=== PATIENT | male | born 1960 | race Caucasian/White ===

== ENCOUNTER 2018-05-05 08:43 | Outpatient (CLI) | payer MEDICARE, MEDICAID, SELFPAY ==
[2018-05-05 08:44] VITALS: BP 111/85; PULSE 88; RESP 18; TEMP 37.2; O2SAT 96
[2018-05-05] MEDS: methylPREDNISolone ACETATE 80 MG/ML VIAL IJ (09:37)
[2018-05-05] MEDS: Omnipaque 240 MG/ML 50 ML BTL IJ (09:38)
[2018-05-05] MEDS: Bupivacaine 0.5% Pres-Free 30 ML VIAL IJ (09:39)
--- NOTE | 2018-05-05 09:40 | DI.RAD_ITS ---
SYMPTOM/DIAGNOSIS: SACROILIAC JOINT DYSFUNCTION C-ARM: Fluoroscopy Time: 66.9 sec, 17.02 mGy Fluoroscopy was provided for guidance with pain clinic injections. Hard copy images show needle placement over the lower left SI joint and over the lower lumbar spine. Please see procedure note for details.
[2018-05-05 09:42] VITALS: BP 108/81; PULSE 78; RESP 18; O2SAT 94
--- NOTE | 2018-05-05 09:47 | PDOC.PAIN ---
Pain Clinic Procedure Note Current Active Problems Problem Status Onset Spondylosis of lumbar region without myelopathy or radiculopathy Chronic Post laminectomy syndrome Chronic Sacroiliac dysfunction Chronic INTRA-ARTICULAR FACET JOINT INJECTION and INTRA-ARTICULAR SI JOINT INJECTION BRANDON SANCHEZ has been referred [facility] the [facility] for intra-articular lumbar facet joint injection. COMMENTS: Good relief from previous injections for more than 6 months Patient was interviewed and the medical record reviewed. There were no medical, pharmacologic, radiographic or other structural contraindications to attempting fluoroscopically guided intra-articular lumbar facet joint injection. Risks and expected side effects as well as potential benefit of the procedure were reviewed and voiced concerns addressed. The printed consent form was signed and witnessed. Standard time-out procedure was performed. Patient was placed in the prone position on the fluoroscopy table and automated blood pressure cuff and pulse oximeter applied. The skin entry point for approaching {bilateral} facet joints at L3-4 was identified under the most advantageous fluoroscopic view and marked. Following thorough Chlorhexadine preparation of the skin and draping and 1% lidocaine infiltration of the skin entry point and subcutaneous tissues, a 22 gauge spinal needle was placed under fluoroscopic guidance into { bilateral L3-4} facet joint. Intra-articular placement was confirmed by a clear arthrogram resulting from the injection of 0.25ml Omnipaque 240. .5ml 1% bupivacaine and 20mg Depomedrol were injected intra-articularily with an initial reproduction of a significant component of the usual pain. The skin entry point for approaching { left/ } SI joints was identified under the most advantageous fluoroscopic view and marked. Following thorough Chlorhexadine preparation of the skin and draping and 1% lidocaine infiltration of the skin entry point and subcutaneous tissues, a 22 gauge spinal needle was placed under fluoroscopic guidance into { left/ } SI joints was identified under the most advantageous fluoroscopic view and marked. Following thorough Chlorhexadine preparation of the skin and draping and 1% lidocaine infiltration of the skin entry point and subcutaneous tissues, a 22 gauge spinal needle was placed under fluoroscopic guidance into { /left/ } SI joint. Intra-articular placement was confirmed by a clear arthrogram resulting from the injection of 0.25ml Omnipaque 240, 1ml 0.5% bupivacaine, and half ml (40mg) of 80mg concentration Depomedrol were injected intra-articularily with an initial reproduction of a significant component of the usual pain. Vital signs were stable throughout the procedure and were as recorded in the docflowsheet by the nursing staff. If given, dosages of intravenous drugs for anxiolysis and analgesia were documented in MAR. Follow up plans and appointments were discussed. Post procedure instruction was given as documented in nursing documentation and having met discharge criteria,was [facility] from the [facility]. COMMENTS:f/u prn CC: Ke Mcconnell
--- NOTE | 2018-05-05 09:52 | PDOC.PAIN_ITS ---
Pain Clinic Procedure Note Current Active Problems Problem Status Onset Spondylosis of lumbar region without myelopathy or radiculopathy Chronic Post laminectomy syndrome Chronic Sacroiliac dysfunction Chronic INTRA-ARTICULAR FACET JOINT INJECTION and INTRA-ARTICULAR SI JOINT INJECTION BRANDON SANCEHZ has been referred to the [facility] for intra- articular lumbar facet joint injection. COMMENTS: Good relief from previous injections for more than 6 months Patient was interviewed and the medical record reviewed. There were no medical , pharmacologic, radiographic or other structural contraindications to attempting fluoroscopically guided intra-articular lumbar facet joint injection. Risks and expected side effects as well as potential benefit of the procedure were reviewed and voiced concerns addressed. The printed consent form was signed and witnessed. Standard time-out procedure was performed. Patient was placed in the prone position on the fluoroscopy table and automated blood pressure cuff and pulse oximeter applied. The skin entry point for approaching {bilateral} facet joints at L3-4 was identified under the most advantageous fluoroscopic view and marked. Following thorough Chlorhexadine preparation of the skin and draping and 1% lidocaine infiltration of the skin entry point and subcutaneous tissues, a 22 gauge spinal needle was placed under fluoroscopic guidance into { bilateral L3-4} facet joint. Intra-articular placement was confirmed by a clear arthrogram resulting from the injection of 0.25ml Omnipaque 240. .5ml 1% bupivacaine and 20mg Depomedrol were injected intra-articularily with an initial reproduction of a significant component of the usual pain. The skin entry point for approaching { left/ } SI joints was identified under the most advantageous fluoroscopic view and marked. Following thorough Chlorhexadine preparation of the skin and draping and 1% lidocaine infiltration of the skin entry point and subcutaneous tissues, a 22 gauge spinal needle was placed under fluoroscopic guidance into { left/ } SI joints was identified under the most advantageous fluoroscopic view and marked. Following thorough Chlorhexadine preparation of the skin and draping and 1% lidocaine infiltration of the skin entry point and subcutaneous tissues, a 22 gauge spinal needle was placed under fluoroscopic guidance into { /left/ } SI joint. Intra-articular placement was confirmed by a clear arthrogram resulting from the injection of 0.25ml Omnipaque 240, 1ml 0.5% bupivacaine, and half ml (40mg) of 80mg concentration Depomedrol were injected intra- articularily with an initial reproduction of a significant component of the usual pain. Vital signs were stable throughout the procedure and were as recorded in the docflowsheet by the nursing staff. If given, dosages of intravenous drugs for anxiolysis and analgesia were documented in MAR. Follow up plans and appointments were discussed. Post procedure instruction was given as documented in nursing documentation and having met discharge criteria,was discharged from the [facility]. COMMENTS:f/u prn CC: Ke Mcconnell
== END 2018-05-05 09:03 ==
PROVIDERS: PCP Family Medicine; Visit Provider Anesthesiology Pain Medicine
DX: M47.816 Spondylosis without myelopathy or radiculopathy, lumbar region (principal); M53.3 Sacrococcygeal disorders, not elsewhere classified; M96.1 Postlaminectomy syndrome, not elsewhere classified; G89.29 Other chronic pain
CPT/HCPCS: 27096; 64493; 72200; J1040; Q9967

== ENCOUNTER 2018-05-10 10:12 | Emergency (ER) | payer MEDICARE, MEDICAID, SELFPAY ==
[2018-05-10] VITALS (25 sets, daily range): BP systolic 108–120; BP diastolic 76–85; PULSE 82–122; RESP 15–25; TEMP 36.5; O2SAT 90–95
[2018-05-10 10:24] LABS: Bilirubin Negative (Negative); Blood Moderate (Negative); Clarity Clear; Glucose Negative (Negative); Ketones Negative (Negative); Leukocyte Esterase Negative (Negative); Nitrite Negative (Negative); Specific Gravity >= 1.030 (1.005-1.025); Urobilinogen 0.2 EU/dL (Up TO 0.2); pH 6.5 (5-8)
--- NOTE | 2018-05-10 10:24 | W.ED.GENAD ---
Discharge Plan Disposition Patient Disposition: HOME Condition: Stable Discharge Details Chief Complaint: Urinary Clinical Impression: Hematuria, Dehydration Primary Care Provider: Ke Mcconnell ED Provider: Roxana Lowe Home Meds and New Rx's Prescriptions: Continue quetiapine [Seroquel] 400 mg tablet 400 mg PO BID RF: 0 gabapentin 300 mg capsule 300 mg PO TID RF: 0 polyethylene glycol 3350 [Miralax] 527 GM powder 1 cap PO PRN RF: 0 ibuprofen 200 MG tablet 200 - 400 tab PO BID PRN RF: 0 metoprolol tartrate 25 MG tablet 25 mg PO BID Qty: 180 RF: 3 Discharge Instructions Instructions: Dehydration (ED), Hematuria (ED) Additional Instructions: Please return immediately to the emergency department if you develop any new or worsening symptoms or if he become otherwise concerned. It is extremely important that you call Dr. Espinoza of urology tomorrow to schedule an appointment to be seen in follow-up this week. It is also extremely important that you make an appointment to be seen in follow-up by your primary care doctor. Please call [phone] if you have any difficulty scheduling these appointments. Referrals: Willie Espinoza MD [ [facility] STAFF PHYSICIAN] - Ke Mcconnell [Primary Care Provider] - Discharge Data Discharge Date/Time-TO BE ENTERED AT DEPARTURE: 05/10/18 13:26 Medical Decision Making Bernardo Sales is a 58 y/o man with history of alcoholism in the past now sober, history of rectal cancer in the past now in remission, chronic back pain, bipolar disorder who presented to the emergency department with hematuria that began this morning, also found to be tachycardic in triage. On exam he is nontoxic appearing and appears in no discomfort. He was tachycardic but had an otherwise normal cardiopulmonary exam without lower extremity edema. His lungs are clear. His genital exam is normal. On the monitor patient's tachycardia oscillates between 100-120. He does appear somewhat anxious. Unclear etiology of tachycardia/hematuria at this time, concern for anemia, metabolic/electrolyte derangement, dehydration, malignancy, infection. At this time exam/history not consistent with sepsis, PE, ACS, massive hemorrhage. Plan for EKG, screening labs, IV fluid hydration, telemetry. Will monitor and reassess. Pt reassessed, tachycardia resolved, NSR on monitor. Pt without complaint. UA shows hematuria without infection. Post-void residual shows 10cc, exam/hx not c/w urinary retention. I discussed Pt presentation and results with Dr. Espinoza of urology, who recommends no further intervention at this time, requests Pt f/u with his office tomorrow and he will see Pt in f/u. Lengthy discussion with Pt re: RTED precautions and importance of outpt f/u. He is amenable to the plan. Medical Records Medical records reviewed: Yes I reviewed the patient's medical records. Lab Data Lab results reviewed: Yes I reviewed the patient's lab results. Laboratory Tests Range/Units 05/10/18 05/10/18 05/10/18 10:18 11:00 11:00 WBC (4.4-10.8) k/cumm 6.52 RBC (4.50-6.00) m/cumm 4.23 L Hgb (13.5-17.5) g/dL 14.2 Hct (40.0-50.0) % 41.6 MCV (80-95) fL 98.3 H MCH (27.0-33.0) pg 33.6 H MCHC (32.0-36.0) g/dL 34.1 RDW (11.8-14.1) % 13.5 Plt Count (130-400) x1000/uL 199 MPV (8.0-11.0) fL 9.7 Immature Gran % 0.9 Neutrophils % 64.7 Lymphocytes % 23.9 Monocytes % 8.9 Eosinophils % 1.1 Basophils % 0.5 Absolute Neutrophils (1.2-6.7) k/cumm 4.22 Absolute Lymphocytes (1.2-3.4) k/cumm 1.56 Absolute Monocytes (0.11-0.7) k/cumm 0.58 Absolute Eosinophils (0.0-0.7) k/cumm 0.07 Absolute Basophils (0.0-0.2) k/cumm 0.03 PT (9.3-10.8) sec INR (1.0-3.5) Sodium (136-145) mmol/L 137 Potassium (3.5-5.1) mmol/L 3.6 Chloride (98-107) mmol/L 101 Carbon Dioxide (21.0-32.0) mmol/L 25.4 Anion Gap (3-11) mmol/L 10.6 BUN (7-18) mg/dL 13 Creatinine (0.70-1.30) mg/dL 0.71 Estimated GFR/1.73 m2 (mL/min/1.73m2) >= 60.00 Glucose (70-100) mg/dL 125 H Lactate (0.6-1.4) mmol/L Calcium (8.5-10.1) mg/dL 9.1 Total Bilirubin (0.2-1.0) mg/dL 0.3 AST (15-37) U/L 16 ALT (12-78) U/L 25 Alkaline Phosphatase (46-116) U/L 77 Total Protein (6.4-8.2) g/dL 7.7 Albumin (3.4-5.0) g/dL 3.8 Carcinoembryonic Ag ng/ml TSH (0.358-3.74) uIU/mL 2.56 Urine Color (Yellow) Yellow Urine Clarity Clear Urine pH (5-8) 6.5 Ur Specific [place] (1.005-1.025) >= 1.030 H Urine Protein (Negative) mg/dL Negative Urine Ketones (Negative) mg/dL Negative Urine Blood (Negative) Moderate H Urine Nitrite (Negative) Negative Urine Bilirubin (Negative) Negative Urine Urobilinogen (Up TO 0.2) EU/dL 0.2 Ur Leukocyte Esterase (Negative) Negative Urine RBC (0-2) 20-50 H Urine WBC (0-5) HPF 0-2 Ur Epithelial Cells (Negative) HPF Few Urine Crystals (Negative) HPF Negative Urine Bacteria (Negative) HPF Rare Urine Casts (Negative) LPF Negative Urine Mucus (Negative) Moderate Urine Other (Negative) Few spermatozoa Ur Culture Indicated? No Urine Glucose (Negative) mg/dL Negative Range/Units 05/10/18 05/10/18 05/10/18 11:00 11:00 11:40 WBC (4.4-10.8) k/cumm RBC (4.50-6.00) m/cumm Hgb (13.5-17.5) g/dL Hct (40.0-50.0) % MCV (80-95) fL MCH (27.0-33.0) pg MCHC (32.0-36.0) g/dL RDW (11.8-14.1) % Plt Count (130-400) x1000/uL MPV (8.0-11.0) fL Immature Gran % Neutrophils % Lymphocytes % Monocytes % Eosinophils % Basophils % Absolute Neutrophils (1.2-6.7) k/cumm Absolute Lymphocytes (1.2-3.4) k/cumm Absolute Monocytes (0.11-0.7) k/cumm Absolute Eosinophils (0.0-0.7) k/cumm Absolute Basophils (0.0-0.2) k/cumm PT (9.3-10.8) sec 9.9 INR (1.0-3.5) 1.0 Sodium (136-145) mmol/L Potassium (3.5-5.1) mmol/L Chloride (98-107) mmol/L Carbon Dioxide (21.0-32.0) mmol/L Anion Gap (3-11) mmol/L BUN (7-18) mg/dL Creatinine (0.70-1.30) mg/dL Estimated GFR/1.73 m2 (mL/min/1.73m2) Glucose (70-100) mg/dL Lactate (0.6-1.4) mmol/L 1.0 Calcium (8.5-10.1) mg/dL Total Bilirubin (0.2-1.0) mg/dL AST (15-37) U/L ALT (12-78) U/L Alkaline Phosphatase (46-116) U/L Total Protein (6.4-8.2) g/dL Albumin (3.4-5.0) g/dL Carcinoembryonic Ag ng/ml 7.3 TSH (0.358-3.74) uIU/mL Urine Color (Yellow) Urine Clarity Urine pH (5-8) Ur Specific [place] (1.005-1.025) Urine Protein (Negative) mg/dL Urine Ketones (Negative) mg/dL Urine Blood (Negative) Urine Nitrite (Negative) Urine Bilirubin (Negative) Urine Urobilinogen (Up TO 0.2) EU/dL Ur Leukocyte Esterase (Negative) Urine RBC (0-2) Urine WBC (0-5) HPF Ur Epithelial Cells (Negative) HPF Urine Crystals (Negative) HPF Urine Bacteria (Negative) HPF Urine Casts (Negative) LPF Urine Mucus (Negative) Urine Other (Negative) Ur Culture Indicated? Urine Glucose (Negative) mg/dL ECG Data Attestation: I personally reviewed and interpreted this ECG (s) as follows: Interpretation: EKG shows sinus tach at 123 with normal axis, inferior Q waves, no STEMI, nondiagnostic EKG HPI General Mode of arrival: ambulatory. Date/Time Provider Initiated Documentation: 05/10/18 10:24. Limitations to Documentation: no limitations. Information obtained by: patient, RN notes reviewed and old records reviewed. HPI Narrative: Bernardo Sales is a 4-year-old man with history of alcoholism in the past sober for 6 years, rectal cancer in the past now in remission, chronic back pain, bipolar disorder presenting to the emergency department with hematuria. Patient reports that at baseline he stays home alone and is not very active; he is on disability for chronic back pain and bipolar disorder. Patient reports that he has been feeling overall well in his usual state of health, until this morning when he noticed blood in his urine and saw drips of blood coming from the tip of his penis. Patient denies any other new symptoms: No dysuria, no abdominal pain or other acute pain, no cough, no shortness of breath, no rash, no numbness/tingling, no weakness, no melena, no other bleeding. He reports that he has never had hematuria before. Patient found to be tachycardic at 120 in triage. He denies having palpitations and it was unknown to him that his heart was beating fast. Patient reports that he drinks approximately 12 cups of coffee per day. He is ambulatory without assistance at baseline and uses a stationary bike daily. He has been eating and drinking as usual. No recent travel. No recent illness. Related Data Home Medications Medication Instructions Recorded Confirmed polyethylene glycol 3350 [Miralax] 1 cap PO PRN 11/29/13 05/10/18 ibuprofen 200 - 400 tab PO BID PRN 05/25/14 05/10/18 metoprolol tartrate 25 mg PO BID #180 tab 01/01/18 05/10/18 gabapentin 300 mg capsule 300 mg PO TID 05/04/18 05/10/18 quetiapine 400 mg tablet 400 mg PO BID 05/04/18 05/10/18 Previous Rx's Medication Instructions Recorded metoprolol tartrate 25 mg PO BID #180 tab 01/01/18 Allergies Allergy/AdvReac Type Severity Reaction Status Date / Time codeine Allergy Mild Itching Verified 05/10/18 10:38 aspirin AdvReac Severe Nausea Verified 05/10/18 10:38 Interferons AdvReac Severe NAUSEA, Verified 05/10/18 10:38 WEIGHT LOSS General Stated Complaint: Urinary GLADYS: 3 Review of Systems Review of Systems Constitutional: denies fevers Eyes: denies eye pain ENT: denies facial pain, dental pain, sore throat Cardiovascular: denies chest pain, edema Respiratory: denies SOB, cough GI: denies abdominal pain, vomiting, diarrhea : denies flank pain, dysuria, reports hematuria MSK: denies back pain, neck pain, arthralgias, myalgias Skin: denies rash Neuro: denies headaches, lightheadedness, weakness Exam Narrative Exam Narrative: Constitutional: well and [id number], pleasant, conversing normally HENT: head atraumatic, normocephalic normal inspection, mucous membranes moist Eyes: conjunctiva normal, sclera normal, pupils 3mm b/l Neck: no stridor, normal ROM, trachea midline Chest: normal inspection Resp: normal work of breathing, LCTAB Cardio: tachycardic, normal rhythm, no murmur appreciated GI: abdomen soft, non-tender, non-distended : normal exam of the penis without tenderness, lesion, discharge or blood at the meatus, testicles without tenderness, mass or edema Back: normal inspection, no rash Skin: warm, dry, normal color, no rash Neuro: alert, not altered, grossly non-focal, normal tone Ext: no edema Psych: normal mood, normal affect, normal behavior Course Vital Signs Temperature 36.5 C 05/10/18 10:18 Pulse 122 H 05/10/18 10:18 Respiratory Rate 16 05/10/18 10:18 Blood Pressure 115/80 05/10/18 10:18 Pulse Oximetry 95 05/10/18 10:18 Temperature 36.5 C 05/10/18 10:18 Temperature Source Temporal Artery Scan 05/10/18 10:18 Pulse 122 H 05/10/18 10:18 Respiratory Rate 16 05/10/18 10:18 Blood Pressure 115/80 05/10/18 10:18 Blood Pressure Position Sitting 05/10/18 10:18 Pulse Oximetry 95 10/29/18 10:18 Oxygen Delivery Method Room Air 05/10/18 10:18 Oxygen Flow Rate 0 05/10/18 10:18 Pain Level 0 05/10/18 10:18
[2018-05-10 10:34] LABS: Bacteria Rare HPF (Negative); Casts Negative LPF (Negative); Crystals Negative HPF (Negative); Epithelial Cells Few HPF (Negative); Mucus Moderate (Negative); Other Cells Few Spermatozoa (Negative); RBC 20-50 (0-2); WBC 0-2 HPF (0-5)
[2018-05-10 10:35] LABS: C & S Indicated? No
[2018-05-10] MEDS: Normal Saline 500 ML IV (11:03)
[2018-05-10 11:13] LABS: Abs Immature Grans 0.06 k/cumm (0.0-0.09); Absolute Basophil Count 0.03 k/cumm (0.0-0.2); Absolute Eosinophil Count 0.07 k/cumm (0.0-0.7); Absolute Lymphocyte Count 1.56 k/cumm (1.2-3.4); Absolute Monocyte Count 0.58 k/cumm (0.11-0.7); Absolute Neutrophil Count 4.22 k/cumm (1.2-6.7); Basophils % 0.5; Eosinophils % 1.1; HCT 41.6 % (40.0-50.0); HGB 14.2 g/dL (13.5-17.5); Immature Grans % 0.9; Lymphocytes % 23.9; Mean Corp. HGB Concentration 34.1 g/dL (32.0-36.0); Mean Corpuscular Hemoglobin 33.6 pg (27.0-33.0); Mean Corpuscular Volume 98.3 fL (80-95); Mean Platelet Volume 9.7 fL (8.0-11.0); Monocytes % 8.9; Neutrophils % 64.7; Platelet Count 199 x1000/uL (130-400); RBC 4.23 m/cumm (4.50-6.00); RBC Distribution Width 13.5 % (11.8-14.1); White Blood Cell Count 6.52 k/cumm (4.4-10.8)
[2018-05-10 11:24] LABS: Prothrombin Time 9.9 sec (9.3-10.8)
--- NOTE | 2018-05-10 11:27 | ED.GENADUL_ITS ---
Discharge Plan Disposition Patient Disposition: HOME Condition: Stable Discharge Details Chief Complaint: Urinary Clinical Impression: Hematuria, Dehydration Primary Care Provider: Ke Mcconnell ED Provider: Roxana Lowe Home Meds and New Rx's Prescriptions: Continue quetiapine [Seroquel] 400 mg tablet 400 mg PO BID RF: 0 gabapentin 300 mg capsule 300 mg PO TID RF: 0 polyethylene glycol 3350 [Miralax] 527 GM powder 1 cap PO PRN RF: 0 ibuprofen 200 MG tablet 200 - 400 tab PO BID PRN RF: 0 metoprolol tartrate 25 MG tablet 25 mg PO BID Qty: 180 RF: 3 Discharge Instructions Instructions: Dehydration (ED), Hematuria (ED) Additional Instructions: Please return immediately to the emergency department if you develop any new or worsening symptoms or if he become otherwise concerned. It is extremely important that you call Dr. Espinoza of urology tomorrow to schedule an appointment to be seen in follow-up this week. It is also extremely important that you make an appointment to be seen in follow-up by your primary care doctor. Please call [phone] if you have any difficulty scheduling these appointments. Referrals: Willie Espinoza MD [ [facility] STAFF PHYSICIAN] - Ke Mcconnell [Primary Care Provider] - Discharge Data Discharge Date/Time-TO BE ENTERED AT DEPARTURE: 05/10/18 13:26 Medical Decision Making Bernardo Sales is a 58 y/o man with history of alcoholism in the past now sober, history of rectal cancer in the past now in remission, chronic back pain, bipolar disorder who presented to the emergency department with hematuria that began this morning, also found to be tachycardic in triage. On exam he is nontoxic appearing and appears in no discomfort. He was tachycardic but had an otherwise normal cardiopulmonary exam without lower extremity edema. His lungs are clear. His genital exam is normal. On the monitor patient's tachycardia oscillates between 100-120. He does appear somewhat anxious. Unclear etiology of tachycardia/hematuria at this time, concern for anemia, metabolic/ electrolyte derangement, dehydration, malignancy, infection. At this time exam/ history not consistent with sepsis, PE, ACS, massive hemorrhage. Plan for EKG, screening labs, IV fluid hydration, telemetry. Will monitor and reassess. Pt reassessed, tachycardia resolved, NSR on monitor. Pt without complaint. UA shows hematuria without infection. Post-void residual shows 10cc, exam/hx not c/ w urinary retention. I discussed Pt presentation and results with Dr. Espinoza of urology, who recommends no further intervention at this time, requests Pt f/u with his office tomorrow and he will see Pt in f/u. Lengthy discussion with Pt re: RTED precautions and importance of outpt f/u. He is amenable to the plan. Medical Records Medical records reviewed: Yes I reviewed the patient's medical records. Lab Data Lab results reviewed: Yes I reviewed the patient's lab results. Laboratory Tests Range/Units 05/10/18 05/10/18 05/10/18 10:18 11:00 11:00 WBC (4.4-10.8) k/cumm 6.52 RBC (4.50-6.00) m/cumm 4.23 L Hgb (13.5-17.5) g/dL 14.2 Hct (40.0-50.0) % 41.6 MCV (80-95) fL 98.3 H MCH (27.0-33.0) pg 33.6 H MCHC (32.0-36.0) g/dL 34.1 RDW (11.8-14.1) % 13.5 Plt Count (130-400) x1000/uL 199 MPV (8.0-11.0) fL 9.7 Immature Gran % 0.9 Neutrophils % 64.7 Lymphocytes % 23.9 Monocytes % 8.9 Eosinophils % 1.1 Basophils % 0.5 Absolute Neutrophils (1.2-6.7) k/cumm 4.22 Absolute Lymphocytes (1.2-3.4) k/cumm 1.56 Absolute Monocytes (0.11-0.7) k/cumm 0.58 Absolute Eosinophils (0.0-0.7) k/cumm 0.07 Absolute Basophils (0.0-0.2) k/cumm 0.03 PT (9.3-10.8) sec INR (1.0-3.5) Sodium (136-145) mmol/L 137 Potassium (3.5-5.1) mmol/L 3.6 Chloride (98-107) mmol/L 101 Carbon Dioxide (21.0-32.0) mmol/L 25.4 Anion Gap (3-11) mmol/L 10.6 BUN (7-18) mg/dL 13 Creatinine (0.70-1.30) mg/dL 0.71 Estimated GFR/1.73 m2 (mL/min/1.73m2) >= 60.00 Glucose (70-100) mg/dL 125 H Lactate (0.6-1.4) mmol/L Calcium (8.5-10.1) mg/dL 9.1 Total Bilirubin (0.2-1.0) mg/dL 0.3 AST (15-37) U/L 16 ALT (12-78) U/L 25 Alkaline Phosphatase (46-116) U/L 77 Total Protein (6.4-8.2) g/dL 7.7 Albumin (3.4-5.0) g/dL 3.8 Carcinoembryonic Ag ng/ml TSH (0.358-3.74) uIU/mL 2.56 Urine Color (Yellow) Yellow Urine Clarity Clear Urine pH (5-8) 6.5 Ur Specific [place] (1.005-1.025) >= 1.030 H Urine Protein (Negative) mg/dL Negative Urine Ketones (Negative) mg/dL Negative Urine Blood (Negative) Moderate H Urine Nitrite (Negative) Negative Urine Bilirubin (Negative) Negative Urine Urobilinogen (Up TO 0.2) EU/dL 0.2 Ur Leukocyte Esterase (Negative) Negative Urine RBC (0-2) 20-50 H Urine WBC (0-5) HPF 0-2 Ur Epithelial Cells (Negative) HPF Few Urine Crystals (Negative) HPF Negative Urine Bacteria (Negative) HPF Rare Urine Casts (Negative) LPF Negative Urine Mucus (Negative) Moderate Urine Other (Negative) Few spermatozoa Ur Culture Indicated? No Urine Glucose (Negative) mg/dL Negative Range/Units 05/10/18 05/10/18 05/10/18 11:00 11:00 11:40 WBC (4.4-10.8) k/cumm RBC (4.50-6.00) m/cumm Hgb (13.5-17.5) g/dL Hct (40.0-50.0) % MCV (80-95) fL MCH (27.0-33.0) pg MCHC (32.0-36.0) g/dL RDW (11.8-14.1) % Plt Count (130-400) x1000/uL MPV (8.0-11.0) fL Immature Gran % Neutrophils % Lymphocytes % Monocytes % Eosinophils % Basophils % Absolute Neutrophils (1.2-6.7) k/cumm Absolute Lymphocytes (1.2-3.4) k/cumm Absolute Monocytes (0.11-0.7) k/cumm Absolute Eosinophils (0.0-0.7) k/cumm Absolute Basophils (0.0-0.2) k/cumm PT (9.3-10.8) sec 9.9 INR (1.0-3.5) 1.0 Sodium (136-145) mmol/L Potassium (3.5-5.1) mmol/L Chloride (98-107) mmol/L Carbon Dioxide (21.0-32.0) mmol/L Anion Gap (3-11) mmol/L BUN (7-18) mg/dL Creatinine (0.70-1.30) mg/dL Estimated GFR/1.73 m2 (mL/min/1.73m2) Glucose (70-100) mg/dL Lactate (0.6-1.4) mmol/L 1.0 Calcium (8.5-10.1) mg/dL Total Bilirubin (0.2-1.0) mg/dL AST (15-37) U/L ALT (12-78) U/L Alkaline Phosphatase (46-116) U/L Total Protein (6.4-8.2) g/dL Albumin (3.4-5.0) g/dL Carcinoembryonic Ag ng/ml 7.3 TSH (0.358-3.74) uIU/mL Urine Color (Yellow) Urine Clarity Urine pH (5-8) Ur Specific [place] (1.005-1.025) Urine Protein (Negative) mg/dL Urine Ketones (Negative) mg/dL Urine Blood (Negative) Urine Nitrite (Negative) Urine Bilirubin (Negative) Urine Urobilinogen (Up TO 0.2) EU/dL Ur Leukocyte Esterase (Negative) Urine RBC (0-2) Urine WBC (0-5) HPF Ur Epithelial Cells (Negative) HPF Urine Crystals (Negative) HPF Urine Bacteria (Negative) HPF Urine Casts (Negative) LPF Urine Mucus (Negative) Urine Other (Negative) Ur Culture Indicated? Urine Glucose (Negative) mg/dL ECG Data Attestation: I personally reviewed and interpreted this ECG (s) as follows: Interpretation: EKG shows sinus tach at 123 with normal axis, inferior Q waves, no STEMI, nondiagnostic EKG HPI General Mode of arrival: ambulatory . Date/Time Provider Initiated Documentation: 05/10/18 10:24 . Limitations to Documentation: no limitations . Information obtained by: patient, RN notes reviewed and old records reviewed . HPI Narrative: Bernardo Sales is a 4-year-old man with history of alcoholism in the past sober for 6 years, rectal cancer in the past now in remission, chronic back pain, bipolar disorder presenting to the emergency department with hematuria. Patient reports that at baseline he stays home alone and is not very active; he is on disability for chronic back pain and bipolar disorder. Patient reports that he has been feeling overall well in his usual state of health, until this morning when he noticed blood in his urine and saw drips of blood coming from the tip of his penis. Patient denies any other new symptoms: No dysuria, no abdominal pain or other acute pain, no cough, no shortness of breath, no rash, no numbness/tingling, no weakness, no melena, no other bleeding. He reports that he has never had hematuria before. Patient found to be tachycardic at 120 in triage. He denies having palpitations and it was unknown to him that his heart was beating fast. Patient reports that he drinks approximately 12 cups of coffee per day. He is ambulatory without assistance at baseline and uses a stationary bike daily. He has been eating and drinking as usual. No recent travel. No recent illness. Related Data Home Medications Medication Instructions Recorded Confirmed polyethylene glycol 3350 [Miralax] 1 cap PO PRN 11/29/13 05/10/18 ibuprofen 200 - 400 tab PO BID PRN 05/25/14 05/10/18 metoprolol tartrate 25 mg PO BID #180 tab 01/01/18 05/10/18 gabapentin 300 mg capsule 300 mg PO TID 05/04/18 05/10/18 quetiapine 400 mg tablet 400 mg PO BID 05/04/18 05/10/18 Previous Rx's Medication Instructions Recorded metoprolol tartrate 25 mg PO BID #180 tab 01/01/18 Allergies Allergy/AdvReac Type Severity Reaction Status Date / Time codeine Allergy Mild Itching Verified 05/10/18 10:38 aspirin AdvReac Severe Nausea Verified 05/10/18 10:38 Interferons AdvReac Severe NAUSEA, Verified 05/10/18 10:38 WEIGHT LOSS General Stated Complaint: Urinary GLADYS: 3 Review of Systems Review of Systems Constitutional: denies fevers Eyes: denies eye pain ENT: denies facial pain, dental pain, sore throat Cardiovascular: denies chest pain, edema Respiratory: denies SOB, cough GI: denies abdominal pain, vomiting, diarrhea : denies flank pain, dysuria, reports hematuria MSK: denies back pain, neck pain, arthralgias, myalgias Skin: denies rash Neuro: denies headaches, lightheadedness, weakness Exam Narrative Exam Narrative: Constitutional: well and [id number], pleasant, conversing normally HENT: head atraumatic, normocephalic normal inspection, mucous membranes moist Eyes: conjunctiva normal, sclera normal, pupils 3mm b/l Neck: no stridor, normal ROM, trachea midline Chest: normal inspection Resp: normal work of breathing, LCTAB Cardio: tachycardic, normal rhythm, no murmur appreciated GI: abdomen soft, non-tender, non-distended : normal exam of the penis without tenderness, lesion, discharge or blood at the meatus, testicles without tenderness, mass or edema Back: normal inspection, no rash Skin: warm, dry, normal color, no rash Neuro: alert, not altered, grossly non-focal, normal tone Ext: no edema Psych: normal mood, normal affect, normal behavior Course Vital Signs Temperature 36.5 C 05/10/18 10:18 Pulse 122 H 05/10/18 10:18 Respiratory Rate 16 05/10/18 10:18 Blood Pressure 115/80 05/10/18 10:18 Pulse Oximetry 95 05/10/18 10:18 Temperature 36.5 C 05/10/18 10:18 Temperature Source Temporal Artery Scan 05/10/18 10:18 Pulse 122 H 05/10/18 10:18 Respiratory Rate 16 05/10/18 10:18 Blood Pressure 115/80 05/10/18 10:18 Blood Pressure Position Sitting 05/10/18 10:18 Pulse Oximetry 95 10/29/18 10:18 Oxygen Delivery Method Room Air 05/10/18 10:18 Oxygen Flow Rate 0 05/10/18 10:18 Pain Level 0 05/10/18 10:18
[2018-05-10 11:34] LABS: ALT 25 U/L (12-78); AST 16 U/L (15-37); Albumin 3.8 g/dL (3.4-5.0); Alkaline Phosphatase 77 U/L (46-116); Anion Gap 10.6 mmol/L (3-11); BUN 13 mg/dL (7-18); Bilirubin, Total 0.3 mg/dL (0.2-1.0); CO2 25.4 mmol/L (21.0-32.0); CREATININE 0.71 mg/dL (0.70-1.30); Calcium 9.1 mg/dL (8.5-10.1); Chloride 101 mmol/L (98-107); Glucose 125 mg/dL (70-100); Potassium 3.6 mmol/L (3.5-5.1); Sodium 137 mmol/L (136-145); TSH (W/Ref FT4) 2.56 uIU/mL (0.358-3.74); Total Protein 7.7 g/dL (6.4-8.2)
[2018-05-11 09:34] LABS: CEA 7.3 ng/ml
== END 2018-05-10 13:26 | disposition home or self-care (01) ==
PROVIDERS: Emergency Provider Student in an Organized Health Care Education/Training Program; PCP Family Medicine
DX: R31.9 Hematuria, unspecified (principal); E86.0 Dehydration; R00.0 Tachycardia, unspecified; I10 Essential (primary) hypertension
CPT/HCPCS: 36415; 80053; 80342; 93005; 96360; 96361; 99284; 81003; 81015; 82378; 83605; 84443; 85025; 85610; 93010

== ENCOUNTER → 2018-06-29 09:31 | Outpatient (BNVA) | payer MEDICARE, MEDICAID, SELFPAY | PROVIDERS: PCP Family Medicine; Visit Provider Urology | DX: R31.0 Gross hematuria (principal); Z85.048 Personal history of other malignant neoplasm of rectum, rectosigmoid junction, and anus; F17.210 Nicotine dependence, cigarettes, uncomplicated | CPT/HCPCS: 81003; 99203; 99214 ==

== ENCOUNTER 2018-08-10 00:31 | Outpatient (CLI) | payer MEDICARE, MEDICAID, SELFPAY ==
--- NOTE | 2018-08-10 13:52 | DI.US_ITS ---
SYMPTOMS/DIAGNOSIS: GROSS HEMATURIA, R31.0, ? STONE/MASS/HYDRONEPHROSIS RENAL ULTRASOUND: Comparison is made with CT dated January,. The kidneys are normal in size and show normal parenchymal thickness and echogenicity. No stones or hydronephrosis is seen. No mass is identified. There is an incidental small peripheral cyst in the mid left kidney measuring maximally 12 mm. The prevoid bladder volume measured 193 cc. There is no postvoid residual. The prostate volume is measured at 24 cc. IMPRESSION: Small left renal cyst. No evidence of stones or hydronephrosis.
== END 2018-08-10 00:51 ==
PROVIDERS: PCP Family Medicine; Visit Provider Urology
DX: R31.0 Gross hematuria (principal); N28.1 Cyst of kidney, acquired
CPT/HCPCS: 76770; 99213

== ENCOUNTER → 2018-08-30 12:17 | Outpatient (BNVA) | payer MEDICARE, MEDICAID, SELFPAY | PROVIDERS: PCP Family Medicine; Visit Provider Urology | DX: R69 Illness, unspecified (principal) ==

== ENCOUNTER 2018-09-02 06:07 | Day surgery (SDC) | payer MEDICARE, MEDICAID, SELFPAY ==
[2018-09-02 06:24] VITALS: BP 123/89; PULSE 82; RESP 18; TEMP 36.3; O2SAT 96
[2018-09-02] MEDS: Lactated Ringers 1,000 ML 80 ML IV (06:44)
--- NOTE | 2018-09-02 07:08 | DI.RAD_ITS ---
SYMPTOMS/DIAGNOSIS: GROSS HEMATURIA RETROGRADE IN OR: Fluoroscopy Time: 24.1 Fluoroscopy was utilized by Dr. Espinoza during retrograde evaluation of the renal collecting system. Please refer to the procedure report for complete details.
[2018-09-02] MEDS: Lidocaine 2% Jelly 6 ML SYR (07:48)
[2018-09-02] MEDS: Omnipaque 300 MG/ML 50 ML BTL (07:50)
--- NOTE | 2018-09-02 08:06 | W.PM.DSUDISC ---
Discharge Plan Discharge Details Attending Provider: Willie Espinoza Primary Care Provider: Ke Mcconnell Home Meds and New Rx's Prescriptions: No Action quetiapine [Seroquel] 400 mg tablet 400 mg PO BID RF: 0 gabapentin 300 mg capsule 300 mg PO TID RF: 0 polyethylene glycol 3350 [Miralax] 527 GM powder 1 cap PO PRN RF: 0 ibuprofen 200 MG tablet 200 - 400 tab PO BID PRN RF: 0 metoprolol tartrate 25 MG tablet 25 mg PO BID Qty: 180 RF: 3 Discharge Instructions Activity:: Activity as Tolerated Diet:: As Tolerated
[2018-09-02] MEDS: Phenazopyridine 200 MG TAB PO (08:24)
[2018-09-02 08:35] VITALS: BP 124/90; PULSE 75; RESP 16; TEMP 35.6; O2SAT 97
--- NOTE | 2018-09-02 11:00 | ROE_ITS ---
REPORT OF OPERATIVE PROCEDURE DATE OF PROCEDURE September 02, 2018 PREOPERATIVE DIAGNOSIS Gross hematuria. POSTOPERATIVE DIAGNOSIS Gross hematuria. PROCEDURE Cystoscopy, bilateral retrograde pyelogram. SURGEON Willie Espinoza M.D. ANESTHESIA Monitored Anesthesia Care with local. COMPLICATIONS None. HISTORY This is a 58-year-old gentleman who has a history of colorectal cancer. He has had gross painless hem aturia. He has been evaluated with a recent renal ultrasound that appeared normal. He has had several previous CT scans related to his colorectal cancer. No significant uropathology has been identified. He presents today for cystoscopy with retrograde pyelogram to complete his hematuria workup. PROCEDURE The patient was brought to the Operating Room on 09/02/2018, after successful induction of Monitored A nesthesia Care; he was placed in the dorsal lithotomy position. His genitalia was prepped and draped. 2% Xylocaine jelly was instilled into the urethra to act as a local anesthetic. A #22-Barbadian rigid cystoscope was passed through the urethra into the bladder. The urethra and bladde r were inspected with the 30-degree lens. The pendulous, bulbous, and membranous urethras all appeared normal with no strictures. The prostatic urethra appeared somewhat hyperemic, but no active bleeding was seen. No papillary lesions were seen on the prosthetic mucosa. The bladder neck was entered and the bladder mucosa was inspected, both ureteral orifices were identi fied, but I was initially unable to cannulate the orifices with our #6-Barbadian access catheter. Instea d, I passed a Glidewire into the orifice and advanced our catheter over the wire. Retrograde films were then obtained by injecting Omnipaque through the access catheter under fluorosc opic guidance. No persistent filling defects were seen. There were some filling defects on the initia l films, which appeared more likely to be air bubbles. Both sides drained promptly on a 5-minute drainage film. The remainder of the bladder was re-inspected using a 70-degree lens. There were some hyperemic areas , but no papillary or nodular lesions. The bladder was emptied and the scope was removed. Based on to day's examination, there is no significant lower tract uropathology. Current recommendation is a year ly urinalysis and repeat workup in three to five years if the hematuria persists. CC: Ke Mcconnell M.D.
== END 2018-09-02 09:30 | disposition home or self-care (01) ==
PROVIDERS: PCP Family Medicine; Visit Provider Urology
PROC: (CPT 74450; principal; 2018-09-02 07:30)
DX: R31.29 Other microscopic hematuria (principal); Z85.038 Personal history of other malignant neoplasm of large intestine
CPT/HCPCS: 52005; 36415; 51701; 80053; 96374; 96375; 99284; 74176; 74420; 81003; 81015; 85025; 87086; J0690; J2405; Q9967

== ENCOUNTER 2018-09-02 21:55 | Emergency (ER) | payer MEDICARE, MEDICAID, SELFPAY ==
[2018-09-02 22:06] VITALS: BP 157/87; PULSE 69; RESP 18; TEMP 37; O2SAT 95
--- NOTE | 2018-09-02 22:09 | DI.CT_ITS ---
SYMPTOM/DIAGNOSIS: FLANK PAIN ABDOMEN AND PELVIC CT: CT examination of the abdomen and pelvis was performed without contrast administration. Images obtained through the lung bases show changes of COPD and scarring. There is a right hip prosthesis in position. There is a spinal stimulator in position. Visualized portions of the liver and spleen are unremarkable. Pancreas appears intact by noncontrast criteria. Note is made of cholelithiasis. No biliary dilatation is seen. There is marked gastric distension. No evidence of bowel obstruction. Probable constipation. Abdominal aorta is of normal diameter. No abdominal or pelvic adenopathy is seen. Previously noted fluid collection in the right anterior abdominal wall associated with the spinal stimulator wire has decreased in size since previous CT of 01/23/17. The patient reportedly had instrumentation of the urinary tract today and there is a small quantity of gas in the urinary bladder. There is a small quantity of fluid tracking adjacent to the proximal to mid right ureter which could represent leakage. Mild nonspecific dilatation of the collecting system on the right noted. Left kidney and ureter are unremarkable in appearance except for an incidental probable small left renal cyst. CONCLUSION: Mild right hydronephrosis and apparent urine extravasation in a patient who is status post instrumentation of the urinary tract. No additional significant findings.
[2018-09-02] MEDS: Ondansetron 4 MG/2 ML VIAL (22:49)
[2018-09-02] MEDS: Normal Saline Flush 10 ML SYR IVP ×2 (22:50→23:22)
[2018-09-02 22:57] LABS: Abs Immature Grans 0.02 k/cumm (0.0-0.09); Absolute Basophil Count 0.02 k/cumm (0.0-0.2); Absolute Eosinophil Count 0.04 k/cumm (0.0-0.7); Absolute Lymphocyte Count 0.95 k/cumm (1.2-3.4); Absolute Monocyte Count 0.51 k/cumm (0.11-0.7); Absolute Neutrophil Count 6.61 k/cumm (1.2-6.7); Basophils % 0.2; Eosinophils % 0.5; HCT 41.2 % (40.0-50.0); Immature Grans % 0.2; Lymphocytes % 11.7; Mean Corpuscular Hemoglobin 33.3 pg (27.0-33.0); Mean Corpuscular Volume 97.9 fL (80-95); Mean Platelet Volume 9.4 fL (8.0-11.0); Monocytes % 6.3; Neutrophils % 81.1; Platelet Count 203 x1000/uL (130-400); RBC 4.21 m/cumm (4.50-6.00); RBC Distribution Width 13.2 % (11.8-14.1); White Blood Cell Count 8.15 k/cumm (4.4-10.8)
[2018-09-02 23:09] LABS: ALT 23 U/L (12-78); AST 19 U/L (15-37); Albumin 3.9 g/dL (3.4-5.0); Alkaline Phosphatase 83 U/L (46-116); Anion Gap 9.7 mmol/L (3-11); BUN 13 mg/dL (7-18); Bilirubin, Total 0.3 mg/dL (0.2-1.0); CO2 28.3 mmol/L (21.0-32.0); CREATININE 0.97 mg/dL (0.70-1.30); Calcium 9.1 mg/dL (8.5-10.1); Chloride 102 mmol/L (98-107); Glucose 127 mg/dL (70-100); Potassium 3.6 mmol/L (3.5-5.1); Sodium 140 mmol/L (136-145); Total Protein 8.3 g/dL (6.4-8.2)
[2018-09-02 23:18] LABS: Bilirubin Negative (Negative); Blood Large (Negative); Clarity Cloudy; Glucose Negative (Negative); Ketones Negative (Negative); Leukocyte Esterase Negative (Negative); Nitrite Positive (Negative); Specific Gravity 1.015 (1.005-1.025); Urobilinogen 0.2 EU/dL (Up TO 0.2); pH 6.5 (5-8)
[2018-09-02] MEDS: Lidocaine 2% Jelly 6 ML SYR (23:18)
[2018-09-02] MEDS: HYDROmorphone 2 MG/ML VIAL 0.5 MG IVP (23:22)
[2018-09-02 23:26] LABS: Bacteria Few HPF (Negative); C & S Indicated? No; Casts Negative LPF (Negative); Crystals Negative HPF (Negative); Epithelial Cells Rare HPF (Negative); Mucus Negative (Negative); RBC >50 (0-2)
--- NOTE | 2018-09-02 23:46 | DI.VRAD_ITS ---
EXAM: CT Abdomen and Pelvis Without Contrast EXAM DATE/TIME: 09/02/2018 10:13 PM CLINICAL HISTORY: 58 years old, male; Pain; Abdominal pain; Prior surgery; Surgery type: Bladder scope today TECHNIQUE: Axial computed tomography images of the abdomen and pelvis without contrast. All CT scans at this facility use at least one of these dose optimization techniques: automated exposure control; mA and/or kV adjustment per patient size (includes targeted exams where dose is matched to clinical indication); or iterative reconstruction. Coronal and sagittal reformatted images were created and reviewed. COMPARISON: CT ABD PELVIS WITH CONTRAST 01/23/2017 10:45 AM FINDINGS: Lower thorax: Minimal dependent atelectasis. ABDOMEN: Liver: No suspicious lesions. Gallbladder and bile ducts: Small stones in the gallbladder. Pancreas: Unremarkable. Spleen: No suspicious lesions. Adrenals: Unremarkable. No suspicious nodule. Kidneys and ureters: Mild right hydronephrosis and some fluid tracking along the upper ureter. Stomach and bowel: Large amount of stool in the colon. Appendix: No evidence of appendicitis. PELVIS: Bladder: There is some gas in urinary bladder. Reproductive: Unremarkable as visualized. ABDOMEN and PELVIS: Intraperitoneal space: No free air. No significant fluid collection. Bones/joints: No acute fracture. No dislocation. Soft tissues: Unremarkable. Vasculature: Unremarkable. Lymph nodes: Unremarkable. IMPRESSION: Mild right hydronephrosis. Fluid tracking next to the upper aspect of the right ureter is likely some urine extravasation. Constipation Cholelithiasis. Dictated and Authenticated by: Rboy Reed MD. Ordering:LEAH Roy MD
--- NOTE | 2018-09-03 00:19 | ED.GENADUL_ITS ---
Discharge Plan Disposition Patient Disposition: HOME Condition: Stable Discharge Details Chief Complaint: Urinary Clinical Impression: Hydronephrosis Primary Care Provider: Ke Mcconnell ED Provider: Kirill Carey Home Meds and New Rx's Prescriptions: New ciprofloxacin HCl 500 mg tablet 500 mg PO BID 3 Days Qty: 6 RF: 0 Continued quetiapine [Seroquel] 400 mg tablet 400 mg PO BID RF: 0 gabapentin 300 mg capsule 300 mg PO TID RF: 0 polyethylene glycol 3350 [Miralax] 527 GM powder 1 cap PO PRN RF: 0 ibuprofen 200 MG tablet 200 - 400 tab PO BID PRN RF: 0 metoprolol tartrate 25 MG tablet 25 mg PO BID Qty: 180 RF: 3 Discharge Instructions Instructions: Hydronephrosis (ED) Additional Instructions: Take the pain medication as prescribed and take your antibiotic for the full 3- day course. Follow-up with Dr. Espinoza if not improving tomorrow and feel free to return to the emergency department for any new or worsening symptom. Referrals: Willie Espinoza MD [[facility] STAFF PHYSICIAN] - (As needed for reassessment or if not improving) Discharge Data Discharge Date/Time-TO BE ENTERED AT DEPARTURE: 09/03/18 01:04 Medical Decision Making Patient presenting the emergency department for chief complaint of bilateral flank pain. Patient states that he had a cystoscopy earlier today with Dr. Espinoza and was doing fine but woke up from a nap with flank pain and some difficulty urinating. Patient denies any fever chills states mild nausea but denies any other symptoms. Physical exam shows right CVA tenderness otherwise unremarkable abdominal cardiac and respiratory examination. Plan to check labs and contact Dr. Espinoza. Pending results patient given morphine and Zofran Spoke with Dr. Espinoza who recommended CT imaging given patient's medical history. Review of review of labs shows no significant leukocytosis and otherwise are nondiagnostic except for UA which does show positive nitrates with significant RBCs but minimal WBCs CT imaging shows mild right hydronephrosis with fluid tracking next the upper aspect is likely some mild urine extravasation. There is constipation also cholelithiasis and no other acute findings noted. Dr. Espinoza was consulted and he feels that these findings are secondary to the procedure patient had done today. He did recommend Cipro BID 3 days for the urinary findings and recommended urine culture. He also stated that patient should follow-up with his office if not feeling better. patient was sent home with 2 Vidalia tablets for pain control this evening and otherwise instructed to contact urology office as needed. After discussion of diagnosis and plan of care patient is no further needs, questions, or concerns and states clear understanding to return to the emergency department for any worsening symptoms. HPI General Mode of arrival: ambulatory . Date/Time Provider Initiated Documentation: 09/02/18 21:56 . Limitations to Documentation: no limitations . Information obtained by: patient . History of Present Illness 58 year old M presents to the emergency department with the chief complaint of Bilateral flank pain, described as severe, with intensity rated at 10. Quality is described as sharp, and is localized to the back. Patient started experiencing this hour(s) (3) and it has been constant. No relieving factors improve symptom(s), Patient did receive the following treatments prior to arrival, none Related Data Home Medications Medication Instructions Recorded Confirmed polyethylene glycol 3350 [Miralax] 1 cap PO PRN 11/29/13 09/02/18 ibuprofen 200 - 400 tab PO BID PRN 05/25/14 09/02/18 metoprolol tartrate 25 mg PO BID #180 tab 01/01/18 09/02/18 gabapentin 300 mg capsule 300 mg PO TID 05/04/18 09/02/18 quetiapine 400 mg tablet 400 mg PO BID 05/04/18 09/02/18 ciprofloxacin HCl 500 mg PO BID 3 Days #6 tab 09/03/18 Previous Rx's Medication Instructions Recorded metoprolol tartrate 25 mg PO BID #180 tab 01/01/18 ciprofloxacin HCl 500 mg PO BID 3 Days #6 tab 09/03/18 Allergies Allergy/AdvReac Type Severity Reaction Status Date / Time codeine Allergy Mild Itching Verified 09/02/18 22:17 aspirin AdvReac Severe Nausea Verified 09/02/18 22:17 Interferons AdvReac Severe NAUSEA, Verified 09/02/18 22:17 WEIGHT LOSS General Stated Complaint: Urinary GLADYS: 3 Review of Systems Constitutional Denies body ache(s), Denies chills, Denies fever(s), Denies malaise and Denies weakness Cardiovascular Denies chest pain Respiratory Reports system reviewed and no additional complaints, except as docu Gastrointestinal Denies abdominal pain, Reports nausea and Denies vomiting Genitourinary Reports as per HPI, Reports difficulty urinating and Denies testicular pain Neurologic Denies confusion and Denies weakness Psychiatric Denies confusion [facility] Medical History Spondylosis of lumbar region without myelopathy or radiculopathy (Chronic) Post laminectomy syndrome (Chronic) Sacroiliac dysfunction (Chronic) Alcohol abuse Bipolar disorder Chronic back pain Colon cancer HTN (hypertension) Hepatitis C Legg-Perthes disease Surgical History Colectomy (~2009) Colonoscopy - MAC (12/30/16) Open Carpal Tunnel release (~2001) Replacement of total knee joint Sigmoidoscopy (11/26/16) Spinal Fusion (~1995) Total replacement of hip (~2006) removal of pain pump (11/19/16) Family History Mother Neoplasm Father No problems noted. Sister No problems noted. Sister No problems noted. Social History current occupational status: unemployed pets and animals: Yes pets and animals: cat(s) frequency: 3-4 times per week duration: decline to answer Smoking and Tabacco status: Current every day tobacco type: cigarettes alcohol intake: never substance use type: does not use eli/taoist: No preference special eli needs: No Exam Const General: cooperative and no acute distress Orientation: alert, awake and oriented x3 Resp Effort & Inspection: normal respiratory effort and able to speak in complete sentences Auscultation: clear to auscultation bilaterally Cardio Rate: regular rate Rhythm: regular rhythm Heart Sounds: S1 normal and S2 normal GI Inspection: normal to inspection Palpation: soft, no hepatosplenomegaly, not firm, no guarding, no hernias, not rigid and nontender Auscultation: normal bowel sounds Back/Spine/Pelvis Back: CVA tenderness (Right) Neuro General: alert, awake and oriented x3 Extrem General: normal capillary refill Course Vital Signs Temperature 37.0 C 09/02/18 22:06 Pulse 69 09/02/18 22:06 Respiratory Rate 18 09/02/18 22:06 Blood Pressure 157/87 H 09/02/18 22:06 Pulse Oximetry 95 09/02/18 22:06 Temperature 37.0 C 09/02/18 22:06 Temperature Source Temporal Artery Scan 09/02/18 22:06 Pulse 69 09/02/18 22:06 Respiratory Rate 18 09/02/18 22:06 Respiratory Effort 09/02/18 22:06 Blood Pressure 157/87 H 09/02/18 22:06 Pulse Oximetry 95 09/02/18 22:06 Oxygen Delivery Method Room Air 09/02/18 22:06 Oxygen Flow Rate 0 09/02/18 22:06 Pain Level 10 09/02/18 23:22 Lab/Test Results Lab/Test Results: Laboratory Tests Range/Units 09/02/18 09/02/18 09/02/18 22:45 22:45 23:05 WBC (4.4-10.8) k/cumm 8.15 RBC (4.50-6.00) m/cumm 4.21 L Hgb (13.5-17.5) g/dL 14.0 Hct (40.0-50.0) % 41.2 MCV (80-95) fL 97.9 H MCH (27.0-33.0) pg 33.3 H MCHC (32.0-36.0) g/dL 34.0 RDW (11.8-14.1) % 13.2 Plt Count (130-400) x1000/uL 203 MPV (8.0-11.0) fL 9.4 Immature Gran % 0.2 Neutrophils % 81.1 Lymphocytes % 11.7 Monocytes % 6.3 Eosinophils % 0.5 Basophils % 0.2 Absolute Neutrophils (1.2-6.7) k/cumm 6.61 Absolute Lymphocytes (1.2-3.4) k/cumm 0.95 L Absolute Monocytes (0.11-0.7) k/cumm 0.51 Absolute Eosinophils (0.0-0.7) k/cumm 0.04 Absolute Basophils (0.0-0.2) k/cumm 0.02 Sodium (136-145) mmol/L 140 Potassium (3.5-5.1) mmol/L 3.6 Chloride (98-107) mmol/L 102 Carbon Dioxide (21.0-32.0) mmol/L 28.3 Anion Gap (3-11) mmol/L 9.7 BUN (7-18) mg/dL 13 Creatinine (0.70-1.30) mg/dL 0.97 Estimated GFR/1.73 m2 (mL/min/1.73m2) >= 60.00 Glucose (70-100) mg/dL 127 H Calcium (8.5-10.1) mg/dL 9.1 Total Bilirubin (0.2-1.0) mg/dL 0.3 AST (15-37) U/L 19 ALT (12-78) U/L 23 Alkaline Phosphatase (46-116) U/L 83 Total Protein (6.4-8.2) g/dL 8.3 H Albumin (3.4-5.0) g/dL 3.9 Urine Color (Yellow) Yellow Urine Clarity Cloudy Urine pH (5-8) 6.5 Ur Specific [place] (1.005-1.025) 1.015 Urine Protein (Negative) mg/dL 100 H Urine Ketones (Negative) mg/dL Negative Urine Blood (Negative) Large H Urine Nitrite (Negative) Positive H Urine Bilirubin (Negative) Negative Urine Urobilinogen (Up TO 0.2) EU/dL 0.2 Ur Leukocyte Esterase (Negative) Negative Urine RBC (0-2) >50 H Urine WBC (0-5) HPF 3-5 Ur Epithelial Cells (Negative) HPF Rare Urine Crystals (Negative) HPF Negative Urine Bacteria (Negative) HPF Few Urine Casts (Negative) LPF Negative Urine Mucus (Negative) Negative Ur Culture Indicated? No Urine Glucose (Negative) mg/dL Negative
[2018-09-03] MEDS: Ciprofloxacin 500 MG TAB PO (00:50)
[2018-09-03] MEDS: HYDROcodone 5/Acetaminophen 325 TAB PO (00:51)
[2018-09-03 01:10] VITALS: BP 132/90; PULSE 84; RESP 16; O2SAT 95
== END 2018-09-03 01:04 | disposition home or self-care (01) ==
PROVIDERS: Emergency Provider Nurse Practitioner Family; PCP Family Medicine
DX: M54.5 Low back pain (principal); R33.9 Retention of urine, unspecified; N13.30 Unspecified hydronephrosis; Y84.8 Other medical procedures as the cause of abnormal reaction of the patient, or of later complication, without mention of misadventure at the time of the procedure; I10 Essential (primary) hypertension
CPT/HCPCS: 36415; 51701; 80053; 96374; 96375; 99284; 74176; 81003; 81015; 85025; 87086; J2405

== ENCOUNTER → 2018-09-16 08:47 | Outpatient (BNVA) | payer MEDICARE, MEDICAID, SELFPAY | PROVIDERS: PCP Family Medicine; Referring Provider Family Medicine; Visit Provider Surgery | DX: K62.5 Hemorrhage of anus and rectum (principal); Z85.00 Personal history of malignant neoplasm of unspecified digestive organ | CPT/HCPCS: 99212; 99213 ==

== ENCOUNTER 2018-09-24 07:06 | Day surgery (SDC) | payer MEDICARE, MEDICAID, SELFPAY ==
[2018-09-24 07:35] VITALS: BP 126/86; PULSE 90; RESP 18; TEMP 36.2; O2SAT 98
[2018-09-24] MEDS: Lactated Ringers 1,000 ML 80 ML IV (07:46)
--- NOTE | 2018-09-24 08:28 | BOWEL_PTH ---
PATIENT: Bernardo Sales JR LOC: [facility] U#:[id number] AGE/SX: 58/M ROOM: RE09/24/[address]: Kathy Leon : 1960 BED: DIS: 09/24/2018 SPEC #: [id number] RECD: 09/24/18 11:00 STATUS: RAI REQ #: [id number] ADALGISA: 09/24/18 08:[address]: Kathy Leon DEPT: Surgical Specimen RECD BY: Romy Silva ENTERED: 09/24/18 11:01 SP TYPE: Bowel OTHR DR: Ke Mcconnell MD Tissues: 1 - BIOPSY BOWEL Procedures: GROSS AND MICRO LEVEL 4 Comments: [id number]
--- NOTE | 2018-09-24 08:57 | W.PROCNOTE ---
Date of service: 09/24/18 Time of Service: 08:57 Procedure Note Date of procedure: 09/24/18 Procedure: flex sig w/ Bx Procedure Diagnosis: hxof CRC /rectal bleeding Procedure Indications: rectal bleeding Procedure Description: .dictated
--- NOTE | 2018-09-24 09:04 | W.PM.DSUDISC ---
Discharge Plan Disposition Patient Disposition: HOME Condition: Good Discharge Details Attending Provider: Kathy Leon Primary Care Provider: Ke Mcconnell Home Meds and New Rx's Prescriptions: No Action quetiapine [Seroquel] 400 mg tablet 400 mg PO BID RF: 0 gabapentin 300 mg capsule 300 mg PO TID RF: 0 polyethylene glycol 3350 [Miralax] 527 GM powder 1 cap PO PRN RF: 0 ibuprofen 200 MG tablet 200 - 400 tab PO BID PRN RF: 0 metoprolol tartrate 25 MG tablet 25 mg PO BID Qty: 180 RF: 3 Discharge Instructions Additional Instructions: repeat coloscopy on Thursday. low fiber diet Thu/Thu/Thursday. clear liquids on Thursday only. 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
[2018-09-24 09:15] VITALS: BP 110/67; PULSE 76; RESP 18; TEMP 36.1; O2SAT 96
--- NOTE | 2018-09-24 17:09 | ROE_ITS ---
DATE OF PROCEDURE: September 24, 2018 PREOPERATIVE DIAGNOSIS: Personal history colorectal cancer status post rectal resection and rectal radiation; change in bowel habits and rectal bleeding. POSTOPERATIVE DIAGNOSIS: Personal history colorectal cancer status post rectal resection and rectal radiation; change in bowel habits and rectal bleeding; stricture. PROCEDURE: Flexible sigmoidoscopy and biopsy. SURGEON: Kathy Leon D.O. ANESTHESIA: General. ESTIMATED BLOOD LOSS: <2 cc COMPLICATIONS: The patient tolerated the procedure well without complication. INDICATIONS: Mr. Sales is a 58-year-old male seen at the request of his primary care provider regarding changes in bowel habits and rectal bleeding. His last colonoscopy was in 2017, and there was an area of irregularity although the biopsies came back as normal mucosa. The patient has also been experiencing some changes in his bowel habits and did have an episode of rectal bleeding. The patient is here today for surveillance colonoscopy. Informed consent was obtained, explaining the risks and benefits of the procedure including, but not limited to, bleeding, infection, perforation, aspiration, and complications from the anesthesia. PROCEDURE: The patient was brought to the Endoscopy Suite and placed in the left lateral decubitus position. IV sedation was administered per the Department of Anesthesia. Digital rectal exam was performed prior to the beginning of the procedure and revealed no anal pathology. The previously lubricated Olympus scope was inserted in the rectum and insufflation was begun. He still had a large volume of solid brown stool in the rectal vault. We were able to irrigate some of the this out. At about 10 cm he did have a significant area of induration. I do think this is where his anastomosis was, and the area seen on his last CE. . There was definitely some stricturing as well. I was not really able to get the scope any further and I was unable to determine at the time if it was simply because of the stricture or if it was because of the poor prep. Biopsies were taken of the area of irritation/redness. Again, unsure at this time if this represents chronic radiation proctitis, or stricture, or if it is just mechanical problems from chronic constipation. The patient was then brought back to [facility]. I did discuss the findings with the patient. I think it is worthwhile to try to attempt another scope with a more aggressive bowel prep and we will also try balloon dilatation of the stricture at that time. The patient tolerated the procedure well today with no complications and arrangements are made to repeat the scope on Thursday after a five-day prep with traditional GoLGistLY. He was given instructions in prepping and a prescription for Compazine for nausea. We will see him back on Thursday and repeat the colonoscopy at that time. cc: Ke Mcconnell M.D.
== END 2018-09-24 07:26 | disposition home or self-care (01) ==
PROVIDERS: PCP Family Medicine; Visit Provider Surgery
PROC: 0DJD8ZZ Inspection of Lower Intestinal Tract, Via Natural or Artificial Opening Endoscopic (ICD-10-PCS; CPT 45378; principal; 2018-09-24 08:30)
DX: R19.4 Change in bowel habit (principal); K62.5 Hemorrhage of anus and rectum; Z92.3 Personal history of irradiation; Z90.49 Acquired absence of other specified parts of digestive tract; I10 Essential (primary) hypertension; F17.210 Nicotine dependence, cigarettes, uncomplicated; Z85.048 Personal history of other malignant neoplasm of rectum, rectosigmoid junction, and anus
CPT/HCPCS: 45380; 88305; 93005; 93010

== ENCOUNTER 2018-09-28 05:57 | Day surgery (SDC) | payer MEDICARE, MEDICAID, SELFPAY ==
[2018-09-28 06:19] VITALS: BP 140/93; PULSE 86; RESP 18; TEMP 36.7; O2SAT 97
[2018-09-28] MEDS: Lactated Ringers 1,000 ML 120 ML IV (06:34)
--- NOTE | 2018-09-28 07:40 | BOWEL_PTH ---
PATIENT: Bernardo Sales JR LOC: [facility] U#:[id number] AGE/SX: 58/M ROOM: RE09/28/[address]: Kathy Leon : 1960 BED: DIS: 09/28/2018 SPEC #: [id number] RECD: 09/28/18 12:55 STATUS: RAI REQ #: [id number] ADALGISA: 09/28/18 07:[address]: Kathy Leon DEPT: Surgical Specimen RECD BY: Diana Watkins ENTERED: 09/28/18 12:56 SP TYPE: Bowel OTHR DR: Ke Mcconnell MD Tissues: 1 - BIOPSY BOWEL Procedures: GROSS AND MICRO LEVEL 4 Comments: [id number]
--- NOTE | 2018-09-28 08:13 | W.PM.OP ---
Date of service: 09/28/18 Time of Service: 08:13 Operative Note DATE OF PROCEDURE: 09/28/18 PRE-OP DIAGNOSIS: hx of colorectal cancer/anastomotic vs radiation stricture POST-OP DIAGNOSIS: same PROCEDURE: ce w/ BX and dilation no sign of recurrent cancer. maybe some chronic radiation proclivities SURGEON: Kathy Leon ANESTHESIA: GETA ESTIMATED BLOOD LOSS: 2 PATHOLOGY: other TOURNIQUET TIME: 0 Patient was transported to: same day Implants: 0 Indications: pain /f/u from abl nl and bleeding Findings: stricture at 10cc in rectum/ This is where anastomotis is and XRT were given Procedure Description: dictated
--- NOTE | 2018-09-28 08:29 | W.PM.DSUDISC ---
Discharge Plan Disposition Patient Disposition: HOME Condition: Good Discharge Details Attending Provider: Kathy Leon Primary Care Provider: Ke Mcconnell Home Meds and New Rx's Prescriptions: New psyllium husk 6 gram/6 gram powder 1 tbs PO BID Qty: 450 RF: 11 Continued quetiapine [Seroquel] 400 mg tablet 400 mg PO BID RF: 0 gabapentin 300 mg capsule 300 mg PO TID RF: 0 polyethylene glycol 3350 [Miralax] 527 GM powder 1 cap PO PRN RF: 0 ibuprofen 200 MG tablet 200 - 400 tab PO BID PRN RF: 0 metoprolol tartrate 25 MG tablet 25 mg PO BID Qty: 180 RF: 3 bisacodyl [Dulcolax (bisacodyl)] 5 mg Tablet,Delayed Release (Dr/Ec) 10 mg PO PRNRF: 0 Discharge Instructions Instructions: High Fiber Diet (GEN) Additional Instructions: pt may need to come in and get dilated in every 3-6m Equipment/Supplies: Brace, Bolster Pillow, Cast, Non-Weight Bearing Crutches, Partial Weight Bearing Crutches, On-Q, Splint and Sling Activity:: Activity as Tolerated Shower/Bathe:: 24 hours Diet:: soft diet for 72 hrs than transiotion to high fiber diet DS: Diagnosis Discharge Diagnosis (1) Rectal stricture: Status: Acute (2) 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
[2018-09-28 08:51] VITALS: BP 101/75; PULSE 80; RESP 20; TEMP 36; O2SAT 97
--- NOTE | 2018-09-28 10:16 | COLE_ITS ---
DATE OF PROCEDURE: September 28, 2018 PREOPERATIVE DIAGNOSIS: History of colorectal cancer and rectal bleeding. POSTOPERATIVE DIAGNOSIS: Same and stricture at the site of anastomosis/radiation. SURGEON: Kathy Leon D.O. ANESTHESIA: General. ESTIMATED BLOOD LOSS: < 5 cc's CONDITION: Patient tolerated the procedure well without complication. HISTORY: Mr. Sales had been here previously and had done a MiraLax prep, which did not clean him out. He did a four liter GoLYTELY prep and is here today for a repeat colonoscopy. Informed consent is obtained, explaining risks and benefits of the procedure, including but not limited to bleeding, infection, perforation, aspiration and complications of the anesthesia. PROCEDURE DESCRIPTION: The patient was brought to the endoscopy suite, placed in the supine position. Anesthesia was administered per the Department of Anesthesia. A time-out is performed. Digital rectal exam is done prior to beginning the procedure and reviewal no anal pathology. The previously lubricated Olympus scope was inserted in the rectum and insufflation was begun. Again at 10 cm he does have the anastomotic area/radiation area. There is some irritation and the tissue is friable. Biopsies are done of this area. I don't have biopsies from last week. The cecum is achieved at 80 cm. Good prep is noted and the scope was withdrawn. There are no polyps; there are no masses. There are a few small scattered diverticula of no consequence in what is left of the left colon. The anastomosis is scarred down so that it will only admit the tip of the scope. We did do a dilation with a 22 Divehi balloon without the aid of fluoroscopy and this is done for two minutes in two sessions. There is no bleeding or tearing noted. The patient tolerated the procedure well without complication. He is being discharged home today. He will be instructed to monitor his bowel movements and may need to be on a regular dilation schedule. continue on a fiber supplement. There is no sign of any recurring cancer. cc: Ke Mcconnell M.D.
== END 2018-09-28 09:18 | disposition home or self-care (01) ==
PROVIDERS: PCP Family Medicine; Visit Provider Surgery
PROC: 0DJD8ZZ Inspection of Lower Intestinal Tract, Via Natural or Artificial Opening Endoscopic (ICD-10-PCS; CPT 45378; principal; 2018-09-28 07:30)
DX: K62.5 Hemorrhage of anus and rectum (principal); Z85.048 Personal history of other malignant neoplasm of rectum, rectosigmoid junction, and anus; Z92.3 Personal history of irradiation; Z90.49 Acquired absence of other specified parts of digestive tract; K57.30 Diverticulosis of large intestine without perforation or abscess without bleeding; K91.89 Other postprocedural complications and disorders of digestive system; I10 Essential (primary) hypertension; F17.210 Nicotine dependence, cigarettes, uncomplicated
CPT/HCPCS: 45380; 45386; 88305

== ENCOUNTER 2018-11-09 01:47 | Outpatient (CLI) | payer MEDICARE, MEDICAID, SELFPAY ==
--- NOTE | 2018-11-23 09:59 | CER_ITS ---
PREVENTICE MONITOR REPORT MONITOR IN PLACE: November 10-2018 Baseline rhythm sinus. Four stable events, all occurring during sinus rhythm. No atrial fibrillation noted. Less than 1% ventricular ectopy. No significant bradycardia. Average heart rate 86 bpm, range 55-109 bpm.
== END 2018-11-09 02:07 ==
PROVIDERS: PCP Family Medicine; Visit Provider Family Medicine
DX: R00.0 Tachycardia, unspecified (principal)
CPT/HCPCS: 93270

== ENCOUNTER 2018-11-22 18:07 | Outpatient (CLI) | payer MEDICARE, MEDICAID, SELFPAY | END 2018-11-22 18:27 | PROVIDERS: PCP Family Medicine; Referring Provider Family Medicine; Visit Provider Internal Medicine Interventional Cardiology | DX: R00.0 Tachycardia, unspecified (principal) | CPT/HCPCS: 93228 ==

== ENCOUNTER → 2019-02-02 12:40 | Outpatient (BNVA) | payer MEDICARE, MEDICAID, SELFPAY | PROVIDERS: PCP Family Medicine; Visit Provider Student in an Organized Health Care Education/Training Program | DX: R00.2 Palpitations (principal); I10 Essential (primary) hypertension; F17.210 Nicotine dependence, cigarettes, uncomplicated | CPT/HCPCS: 99204; 99214 ==

== ENCOUNTER 2019-05-26 13:53 | Emergency (ER) | payer MEDICARE, MEDICAID, SELFPAY ==
[2019-05-26] VITALS (23 sets, daily range): BP systolic 106–118; BP diastolic 73–86; PULSE 86–168; RESP 16–27; TEMP 37; O2SAT 95–100
--- NOTE | 2019-05-26 14:13 | DI.RAD_ITS ---
EXAM: XR PORTABLE CHEST AP INDICATION: Palpitations x 1 day, SOB, r/o acute disease. COMPARISON: CHEST 2 VIEWS PA,LAT from 11/30/2017 TECHNIQUE: 2D digital imaging was performed. FINDINGS: The heart size is normal. Leads overlie the chest. The lungs are not well inflated. There are mild ly increased densities at both lung bases, presumably representing atelectasis. No pneumothorax or f ocal infiltrate is seen. IMPRESSION: Limited exam. No acute abnormality.
--- NOTE | 2019-05-26 14:15 | ED.GENADUL_ITS ---
Discharge Plan Disposition Patient Disposition: HOME Condition: Stable Discharge Details Chief Complaint: Chest Pain Clinical Impression: SVT (supraventricular tachycardia) Primary Care Provider: Ke Mcconnell ED Provider: Lucy Thorpe Home Meds and New Rx's Prescriptions: Continued quetiapine [Seroquel] 400 mg tablet 400 mg PO BID RF: 0 gabapentin 300 mg capsule 300 mg PO TID RF: 0 metoprolol succinate 50 mg tablet extended release 24 hr 50 mg PO DAILY Qty: 90 RF: 4 metoprolol tartrate 25 mg tablet 25 mg PO DAILY PRN (Reason: palpitations) Qty: 180 RF: 3 polyethylene glycol 3350 [Miralax] 527 GM powder 1 cap PO PRN RF: 0 ibuprofen 200 MG tablet 200 - 400 tab PO BID PRN RF: 0 Discharge Instructions Instructions: Supraventricular Tachycardia (ED), Valsalva Maneuver (ED) Additional Instructions: Take your regular medications as directed. Drink plenty of fluids and get plenty of rest. Follow-up with your primary care doctor within the next week for reevaluation. Return to the emergency department if you develop any worsening or new concerning symptoms. Discharge Data Discharge Physician: Lucy Thorpe Medical Decision Making 1400 -- 59-year-old male with a previous history of alcohol abuse, SVT, hypertension, bipolar disorder and colon cancer presents with palpitations, chest pain shortness of breath since 7 AM this morning. Patient denies any alcohol use in the last 7 years. Heart rate on arrival 170s. EKG noted a rate of 165 and SVT. No P waves noted. No acute ST ischemic changes noted. BP 115/76. Patient appears nontoxic. Afebrile. Patient is speaking full sentences without any signs of respiratory distress. Moving all extremities. Attempted bedside modified Valsalva maneuver x2 with some decrease in heart rate to the 150s but increased back to 160s. Patient given 6 mg of adenosine IV x1 at bedside. Within 30 seconds, heart rate decreased to low 100s and patient denied any acute symptoms. 1405 -- Repeat EKG noted a rate of 96, sinus with P waves and no acute ST elevation or depression. Screening labs done on arrival due to patient's complaints. Will check portable chest x-ray. 1530 --labs and imaging reviewed and unremarkable. Patient feels much better and is requesting to go home. 1545 --Case discussed with director of income tax Dr. Malagon -agrees with plan for continue on patient's regular medications. Recommends follow-up with primary care doctor for reevaluation and consideration for ablation if symptoms continue or worsen. Patient has a ride home. He is advised to call his primary care doctor tomorrow for follow-up within the next week. He is advised to return here immediately with any worsening or concerning symptoms. Medical Records Medical records reviewed: Yes I reviewed the patient's medical records. Imaging Data Radiologic Study: Radiologist's impression: XR PORTABLE CHEST AP INDICATION: Palpitations x 1 day, SOB, r/o acute disease. COMPARISON: CHEST 2 VIEWS PA,LAT from 11/30/2017 TECHNIQUE: 2D digital imaging was performed. FINDINGS: The heart size is normal. Leads overlie the chest. The lungs are not well inflated. There are mildly increased densities at both lung bases, presumably representing atelectasis. No pneumothorax or focal infiltrate is seen. IMPRESSION: Limited exam. No acute abnormality. Lab Data Lab results reviewed: Yes I reviewed the patient's lab results. Labs: Laboratory Tests Range/Units 05/26/19 05/26/19 05/26/19 14:05 14:05 14:48 WBC (4.4-10.8) k/cumm 10.52 RBC (4.50-6.00) m/cumm 4.83 Hgb (13.5-17.5) g/dL 15.8 Hct (40.0-50.0) % 47.7 MCV (80-95) fL 98.8 H MCH (27.0-33.0) pg 32.7 MCHC (32.0-36.0) g/dL 33.1 RDW (11.8-14.1) % 13.5 Plt Count (130-400) x1000/uL 263 MPV (8.0-11.0) fL 9.6 Immature Gran % 0.7 Neutrophils % 67.7 Lymphocytes % 20.4 Monocytes % 10.3 Eosinophils % 0.5 Basophils % 0.4 Absolute Neutrophils (1.2-6.7) k/cumm 7.13 H Absolute Lymphocytes (1.2-3.4) k/cumm 2.15 Absolute Monocytes (0.11-0.7) k/cumm 1.08 H Absolute Eosinophils (0.0-0.7) k/cumm 0.05 Absolute Basophils (0.0-0.2) k/cumm 0.04 Sodium Cancelled 143 Potassium Cancelled 4.4 Chloride Cancelled 109 H Carbon Dioxide Cancelled 27.3 Anion Gap Cancelled 6.7 BUN Cancelled 11 Creatinine Cancelled 0.86 Estimated GFR/1.73 m2 Cancelled >= 60.00 Glucose Cancelled 95 Calcium Cancelled 8.4 L Magnesium Cancelled 1.8 Total Bilirubin Cancelled 0.3 AST Cancelled 16 ALT Cancelled 30 Alkaline Phosphatase Cancelled 73 Troponin I Cancelled < 0.05 Total Protein Cancelled 7.3 Albumin Cancelled 3.5 ECG Data Attestation: I personally reviewed and interpreted this ECG (s) as follows: Interpretation: #1 --Rate of 165, SVT. No Q waves noted. QTc 454. QRS 88. No acute ST elevation or depression. #2 --Rate of 96, Sinus. NM 178. QTc 422. QRS 108. No acute ST elevation or depression. HPI General Mode of arrival: ambulatory . Date/Time Provider Initiated Documentation: 05/26/19 14:12 . Limitations to Documentation: no limitations . Information obtained by: patient . HPI Narrative: Patient is a 59-year-old male with a history of former alcohol abuse, bipolar disorder, hepatitis C, colon cancer and hypertension presents with palpitations, chest pain or shortness of breath since 7 AM this morning. Patient states he regularly takes his metoprolol at 3 AM and then again when he awakes. Patient states he awoke with sensation of heart racing which has lasted all day. Patient took his metoprolol today as scheduled. Patient denies any chest pain or shortness of breath at present. He is mainly complaining of palpitations at this time. He denies any recent illness, fever, sore throat, cough, abdominal pain, vomiting or diarrhea. Related Data Home Medications Medication Instructions Recorded Confirmed polyethylene glycol 3350 [Miralax] 1 cap PO PRN 11/29/13 05/11/19 ibuprofen 200 - 400 tab PO BID PRN 05/25/14 05/11/19 gabapentin 300 mg capsule 300 mg PO TID 05/04/18 05/11/19 quetiapine 400 mg tablet 400 mg PO BID 05/04/18 05/11/19 metoprolol succinate 50 mg 50 mg PO DAILY #90 tab 04/27/19 05/11/19 tablet,extended release 24 hr metoprolol tartrate 25 mg tablet 25 mg PO DAILY PRN #180 tab 04/27/19 05/11/19 Previous Rx's Medication Instructions Recorded metoprolol succinate 50 mg 50 mg PO DAILY #90 tab 04/27/19 tablet,extended release 24 hr metoprolol tartrate 25 mg tablet 25 mg PO DAILY PRN #180 tab 04/27/19 Allergies Allergy/AdvReac Type Severity Reaction Status Date / Time codeine Allergy Mild Itching Verified 05/11/19 10:16 aspirin AdvReac Severe Nausea Verified 05/11/19 10:16 Interferons AdvReac Severe NAUSEA, Verified 05/11/19 10:16 WEIGHT LOSS General Stated Complaint: Chest Pain GLADYS: 2 Review of Systems All systems reviewed & are unremarkable except as noted in HPI and below Constitutional Constitutional: Reports as per HPI, Denies chills and Denies fever(s) Eyes Eyes: Denies blurry vision ENT Ears, Nose, Mouth, and Throat: Denies dizziness, Denies sore throat and Denies throat swelling Cardiovascular Cardiovascular: Reports chest pain, Reports palpitations and Reports dyspnea Respiratory Respiratory: Denies cough and Reports dyspnea Gastrointestinal Gastrointestinal: Denies abdominal pain, Denies diarrhea and Denies vomiting Genitourinary Genitourinary: Denies hematuria and Denies dysuria Musculoskeletal Musculoskeletal: Denies back pain and Denies numbness Integumentary/Breasts Skin/Breast: Denies lesions and Denies rash Neurologic Neurologic: Denies dizziness, Denies focal weakness and Denies numbness Endocrine Endocrine: Reports palpitations Allergic/Immunologic Allergic/Immunologic: Denies throat swelling [facility] Medical History Alcohol abuse Back pain (Acute) Bipolar disorder Chronic back pain Colon cancer Hepatitis C HTN (hypertension) Legg-Perthes disease Post laminectomy syndrome (Chronic) Sacroiliac dysfunction (Chronic) Spondylosis of lumbar region without myelopathy or radiculopathy (Chronic) Surgical History Colectomy (~2009) Sigmoid Resection Colonoscopy - MAC (09/28/18) Patient formerly followed by [facility]. Hx of rectal cancer. [place] 12/30/16 CD noted rectal lesion/rectal stenosis, path showed histological features of regeneration/repair. CD rec'd patient follow up in office in 6 mos. No f/up. 09/02/18 Dr Leggett patient has passed blood/clot in stool. mg 09/28/18 - [place] with Kathy Leon, rec's consult in 6 months with possible dilation. mg History of cystoscopy (Acute) Open Carpal Tunnel release (~2001) RIGHT removal of pain pump (11/19/16) Replacement of total knee joint bilateral knee reconstruction; x2 S/P total knee replacement (Acute) Sigmoidoscopy (11/26/16) Spinal Fusion (~1995) L5-S2 Total replacement of hip (~2006) RIGHT Family History Mother Neoplasm BRAIN Father No problems noted. Sister No problems noted. Sister No problems noted. Social History Smoking/Tobacco Use Status: Current every day Tobacco Type: cigarettes Counseling given: patient declined Alcohol Intake: never Drug use: Occasionally Substance use type: does not use Pets and animals: Yes Pets and animals: cat(s) Duration: decline to answer Frequency: 3-4 times per week Jillian/Adventism: No preference Special jillian needs: No Do you feel safe at home: Yes Do you feel safe in your relationship?: Yes Exam Const General: cooperative, healthy appearing and no acute distress HENMT Head: normal to inspection Face and sinus: normal facial exam Eyes General: appearance normal, both eyes and all related structures Pupils: PERRL EOM: EOM intact bilaterally Neck Neck: normal visual inspection and No submandibular swelling Lymphatic: no lymphadenopathy noted Chest Chest: normal inspection of the chest and no tenderness Resp Effort & Inspection: normal respiratory effort and able to speak in complete sentences Auscultation: clear to auscultation bilaterally Cardio Rate: regular rate Rhythm: regular rhythm GI Inspection: normal to inspection Palpation: soft, not firm, not rigid and nontender Auscultation: normal bowel sounds Male General Exam: Yes normal external exam Back/Spine/Pelvis Thoracic/Lumbar Spine: thoracic and lumbar spine normal to inspection Pelvis: no pain with anterior-posterior compression Skin General skin exam: no rashes or lesions noted Neuro General: alert, awake and oriented x3 Cognition: normal cognition Speech: speech normal Motor: muscle tone normal throughout Sensory Exam: no sensory deficits noted Extrem General: normal to inspection, full ROM, normal capillary refill, no calf tenderness bilaterally and no edema Psych Appearance: grossly normal Mental Status: mental status grossly normal Speech and Movement: speech and movement normal Affect: normal affect Course Vital Signs Vital signs: Vital Signs Temperature 98.6 F 05/26/19 13:58 Pulse 168 H 05/26/19 13:58 Respiratory Rate 20 05/26/19 13:58 Blood Pressure 115/76 05/26/19 13:58 Pulse Oximetry 97 05/26/19 13:58 Temperature 98.6 F 05/26/19 13:58 Temperature Source Temporal Artery Scan 05/26/19 13:58 Pulse 168 H 05/26/19 13:58 Respiratory Rate 20 05/26/19 13:58 Blood Pressure 115/76 05/26/19 13:58 Blood Pressure Position Supine 05/26/19 13:58 Pulse Oximetry 97 05/26/19 13:58 Oxygen Delivery Method Room Air 05/26/19 13:58 Oxygen Flow Rate 0 05/26/19 13:58 Pain Level 3 05/26/19 13:58
[2019-05-26] MEDS: Adenosine 6 MG/2 ML VIAL IVP (14:16)
[2019-05-26] MEDS: Normal Saline 1,000 ML 1000 ML IV (14:17)
[2019-05-26 14:22] LABS: Abs Immature Grans 0.07 k/cumm (0.0-0.09); Absolute Basophil Count 0.04 k/cumm (0.0-0.2); Absolute Eosinophil Count 0.05 k/cumm (0.0-0.7); Absolute Lymphocyte Count 2.15 k/cumm (1.2-3.4); Absolute Monocyte Count 1.08 k/cumm (0.11-0.7); Absolute Neutrophil Count 7.13 k/cumm (1.2-6.7); Basophils % 0.4; Eosinophils % 0.5; HCT 47.7 % (40.0-50.0); HGB 15.8 g/dL (13.5-17.5); Immature Grans % 0.7; Lymphocytes % 20.4; Mean Corp. HGB Concentration 33.1 g/dL (32.0-36.0); Mean Corpuscular Hemoglobin 32.7 pg (27.0-33.0); Mean Corpuscular Volume 98.8 fL (80-95); Mean Platelet Volume 9.6 fL (8.0-11.0); Monocytes % 10.3; Neutrophils % 67.7; Platelet Count 263 x1000/uL (130-400); RBC 4.83 m/cumm (4.50-6.00); RBC Distribution Width 13.5 % (11.8-14.1); White Blood Cell Count 10.52 k/cumm (4.4-10.8)
[2019-05-26 15:29] LABS: ALT 30 U/L (16-63); AST 16 U/L (15-37); Albumin 3.5 g/dL (3.4-5.0); Alkaline Phosphatase 73 U/L (46-116); Anion Gap 6.7 mmol/L (3-11); BUN 11 mg/dL (7-18); Bilirubin, Total 0.3 mg/dL (0.2-1.0); CO2 27.3 mmol/L (21.0-32.0); CREATININE 0.86 mg/dL (0.70-1.30); Calcium 8.4 mg/dL (8.5-10.1); Chloride 109 mmol/L (98-107); Glucose 95 mg/dL (70-100); Magnesium 1.8 mg/dL (1.8-2.4); Potassium 4.4 mmol/L (3.5-5.1); Sodium 143 mmol/L (136-145); Total Protein 7.3 g/dL (6.4-8.2)
[2019-05-26 15:37] LABS: Troponin I < 0.05 ng/mL (0.00-0.06)
== END 2019-05-26 16:13 | disposition home or self-care (01) ==
PROVIDERS: Emergency Provider Physician Assistant; PCP Family Medicine
DX: I47.1 Supraventricular tachycardia (principal); F10.21 Alcohol dependence, in remission; I10 Essential (primary) hypertension
CPT/HCPCS: 36415; 80053; 93005; 96361; 96374; 99285; 71045; 83735; 84484; 85025; 93010; J0153

== ENCOUNTER → 2019-06-08 08:40 | Outpatient (BNVA) | payer MEDICARE, MEDICAID, SELFPAY | PROVIDERS: PCP Family Medicine; Referring Provider Family Medicine; Visit Provider Surgery | DX: K62.5 Hemorrhage of anus and rectum (principal); Z85.048 Personal history of other malignant neoplasm of rectum, rectosigmoid junction, and anus; I10 Essential (primary) hypertension | CPT/HCPCS: 99212; 99213 ==

== ENCOUNTER 2019-06-08 12:50 | Emergency (ER) | payer MEDICARE, MEDICAID, SELFPAY ==
[2019-06-08] VITALS (27 sets, daily range): BP systolic 99–133; BP diastolic 77–102; PULSE 90–170; RESP 16–32; TEMP 36.5–37; O2SAT 92–98
--- NOTE | 2019-06-08 12:53 | ED.GENADUL_ITS ---
Discharge Plan Disposition Patient Disposition: HOME Condition: Good Discharge Details Chief Complaint: Palpitatns Clinical Impression: SVT (supraventricular tachycardia), History of anxiety Primary Care Provider: Ke Mcconnell ED Provider: Lucy Thorpe Home Meds and New Rx's Prescriptions: New hydroxyzine HCl 25 mg tablet 25 mg PO TID PRN (Reason: anxiety) Qty: 10 RF: 0 Continued quetiapine [Seroquel] 400 mg tablet 400 mg PO BID RF: 0 gabapentin 300 mg capsule 300 mg PO TID RF: 0 metoprolol succinate 50 mg tablet extended release 24 hr 50 mg PO DAILY Qty: 90 RF: 4 metoprolol tartrate 25 mg tablet 25 mg PO DAILY PRN (Reason: palpitations) Qty: 180 RF: 3 polyethylene glycol 3350 [Miralax] 527 GM powder 1 cap PO PRN RF: 0 Discharge Instructions Instructions: Supraventricular Tachycardia (ED) Additional Instructions: Take your metoprolol succinate 50 mg daily as you have been normally. Increase your metoprolol tartrate from 25mg daily to 50mg daily starting tomorrow. You were given an extra dose of 25mg metoprolol tartrate today. Take the hydroxyzine as needed and directed for anxiety or sleep. Follow-up with your scheduled appointment with your primary care doctor Dr. Mcconnell on June 14. You can follow-up with cardiology at [facility] for further evaluation. Call [phone] to schedule an appointment. You can also follow-up with cardiology Dr. Malagon at [facility] for further evaluation. Return to the emergency department if you develop any worsening or new concerning symptoms. Referrals: Troy Malagon MD [ CONSULTING PHYSICIAN] - Discharge Data Discharge Physician: Lucy Thorpe Medical Decision Making 1300 -- 59-year-old male with a history of previous alcohol abuse, SVT, hypertension, bipolar disorder and colon cancer presents with palpitations since 1230 today. Patient states he just went into the kitchen to make a TV dinner when his sensation of rapid heart rate started. Patient denies any new medications, supplements, diet changes, illness, fever. He denies any chest pain or shortness of breath. He does admit to intermittent fluttering of his chest over the past few days. He takes 50 mg of metoprolol at 3 AM and 25 mg at 6 AM and states he has been taking it as scheduled. Patient was seen here almost 2 weeks ago for SVT, not relieved with Valsalva maneuver and converted with 6 mg of adenosine IV. Case d/w Dr. Malagon cardiology at that time who recommended pt continue his current meds. He states he has been feeling fine since then. He has a follow-up appointment with his primary care doctor Dr. Mcconnell on June 14. EKG on arrival notes a rate of 167, no discernible P wave, consistent with SVT, with ST depression noted in lead II, V5 and V6. No acute ST elevation. Attempted modified Valsalva maneuver x2 at bedside without relief. Patient given 6 mg of adenosine IV and converted to sinus rhythm with heart rate 90s. BP stable. Patient feels much better. We will check screening labs and chest x-ray and call cardiology for further recommendations. 1350 -- HR 90s-100s. Appears sinus on monitor. Pt admits to anxiety, has been concerned for days for going into SVT and checking his pulse constantly. Will give a dose of ativan IV. Dr. Malagon gone for the day. Will call [facility] [place]. 1445 --Case discussed with [facility] cardiology -recommend increasing patient's metoprolol tartrate to 50 mg. Recommend patient follow-up with cardiology for further evaluation. 1500 --patient denied any relief with Ativan. Dose of hydroxyzine given and symptoms of anxiety improved. Patient feels good to go home. He states he has plenty of metoprolol at home. He was advised to continue his 50 mg of metoprolol succinate at 3 AM and increased from 25 to 50 mg of metoprolol tartrate at 6 AM. He has an appointment with Dr. Mcconnell on June 14. Patient states he would prefer not to follow-up with [facility] cardiology. He was given Dr. Rudd and [facility] cardiology clinic follow-up information. He was advised to return here with any concerns. Medical Records Medical records reviewed: Yes I reviewed the patient's medical records. Lab Data Lab results reviewed: Yes I reviewed the patient's lab results. Labs: Laboratory Tests Range/Units 06/08/19 06/08/19 13:00 13:00 WBC (4.4-10.8) k/cumm 9.33 RBC (4.50-6.00) m/cumm 4.89 Hgb (13.5-17.5) g/dL 15.9 Hct (40.0-50.0) % 47.8 MCV (80-95) fL 97.8 H MCH (27.0-33.0) pg 32.5 MCHC (32.0-36.0) g/dL 33.3 RDW (11.8-14.1) % 13.3 Plt Count (130-400) x1000/uL 268 MPV (8.0-11.0) fL 9.1 Immature Gran % 0.6 Neutrophils % 62.5 Lymphocytes % 28.2 Monocytes % 7.7 Eosinophils % 0.6 Basophils % 0.4 Absolute Neutrophils (1.2-6.7) k/cumm 5.82 Absolute Lymphocytes (1.2-3.4) k/cumm 2.63 Absolute Monocytes (0.11-0.7) k/cumm 0.72 H Absolute Eosinophils (0.0-0.7) k/cumm 0.06 Absolute Basophils (0.0-0.2) k/cumm 0.04 Sodium (136-145) mmol/L 139 Potassium (3.5-5.1) mmol/L 3.6 Chloride (98-107) mmol/L 101 Carbon Dioxide (21.0-32.0) mmol/L 24.8 Anion Gap (3-11) mmol/L 13.2 H BUN (7-18) mg/dL 14 Creatinine (0.70-1.30) mg/dL 0.97 Estimated GFR/1.73 m2 (mL/min/1.73m2) >= 60.00 Glucose (74-106) mg/dL 147 H Calcium (8.5-10.1) mg/dL 9.3 Magnesium (1.8-2.4) mg/dL 2.1 Total Bilirubin (0.2-1.0) mg/dL 0.5 AST (15-37) U/L 18 ALT (16-63) U/L 31 Alkaline Phosphatase (46-116) U/L 88 Troponin I (<0.06) ng/Ml < 0.05 Total Protein (6.4-8.2) g/dL 8.8 H Albumin (3.4-5.0) g/dL 4.5 ECG Data Attestation: I personally reviewed and interpreted this ECG (s) as follows: Interpretation: #1 -- rate of 167, svt, less than [address] depression noted in 2, V5 and V6. No acute ST elevation. QTc 453. QRS 86. #2 -- rate of 98, sinus, no acute ST elevation or depression. PA 186. QTc 452. QRS 112. HPI General Mode of arrival: wheelchair . Date/Time Provider Initiated Documentation: 06/08/19 12:51 . Limitations to Documentation: no limitations . Information obtained by: patient . History of Present Illness 59 year old M presents to the emergency department with the chief complaint of tachycardia, Quality is described as other (palpitations, heart racing), and is localized to the chest. and it has been constant. No relieving factors improve symptom(s), No exacerbating factors reported . Patient notes denies chest pain, cough, diaphoresis, fever/chills, headaches, loss of appetite, malaise, nausea/vomiting, rash, seizure, shortness of breath, syncope and weakness. Patient did receive the following treatments prior to arrival, other (no relief with valsalva maneuver at home ) Related Data Home Medications Medication Instructions Recorded Confirmed polyethylene glycol 3350 [Miralax] 1 cap PO PRN 11/29/13 06/08/19 gabapentin 300 mg capsule 300 mg PO TID 05/04/18 06/08/19 quetiapine 400 mg tablet 400 mg PO BID 05/04/18 06/08/19 metoprolol succinate 50 mg 50 mg PO DAILY #90 tab 04/27/19 06/08/19 tablet,extended release 24 hr metoprolol tartrate 25 mg tablet 25 mg PO DAILY PRN #180 tab 04/27/19 06/08/19 hydroxyzine HCl 25 mg PO TID PRN #10 tab 06/08/19 Previous Rx's Medication Instructions Recorded metoprolol succinate 50 mg 50 mg PO DAILY #90 tab 04/27/19 tablet,extended release 24 hr metoprolol tartrate 25 mg tablet 25 mg PO DAILY PRN #180 tab 04/27/19 hydroxyzine HCl 25 mg PO TID PRN #10 tab 06/08/19 Allergies Allergy/AdvReac Type Severity Reaction Status Date / Time codeine Allergy Mild Itching Verified 06/08/19 13:15 aspirin AdvReac Severe Nausea Verified 06/08/19 13:15 Interferons AdvReac Severe NAUSEA, Verified 06/08/19 13:15 WEIGHT LOSS General GLADYS: 2 Review of Systems All systems reviewed & are unremarkable except as noted in HPI and below Constitutional Constitutional: Reports as per HPI, Denies chills and Denies fever(s) Eyes Eyes: Denies blurry vision ENT Ears, Nose, Mouth, and Throat: Denies dizziness, Denies sore throat and Denies throat swelling Cardiovascular Cardiovascular: Denies chest pain and Denies dyspnea Respiratory Respiratory: Denies cough and Denies dyspnea Gastrointestinal Gastrointestinal: Denies abdominal pain, Denies diarrhea and Denies vomiting Genitourinary Genitourinary: Denies hematuria and Denies dysuria Musculoskeletal Musculoskeletal: Denies back pain and Denies numbness Integumentary/Breasts Skin/Breast: Denies lesions and Denies rash Neurologic Neurologic: Denies dizziness, Denies focal weakness and Denies numbness Allergic/Immunologic Allergic/Immunologic: Denies throat swelling [facility] Social History Smoking/Tobacco Use Status: Current every day Tobacco Type: cigarettes Counseling given: patient declined Alcohol Intake: never Drug use: Occasionally Substance use type: does not use Pets and animals: Yes Pets and animals: cat(s) Duration: decline to answer Frequency: 3-4 times per week Jillian/Taoist: No preference Special jillian needs: No Do you feel safe at home: Yes Do you feel safe in your relationship?: Yes Exam Const General: cooperative, healthy appearing and no acute distress [facility] Head: normal to inspection Face and sinus: normal facial exam Eyes General: appearance normal, both eyes and all related structures EOM: EOM intact bilaterally Neck Neck: normal visual inspection and No submandibular swelling Lymphatic: no lymphadenopathy noted Chest Chest: normal inspection of the chest and no tenderness Resp Effort & Inspection: normal respiratory effort and able to speak in complete sentences Auscultation: clear to auscultation bilaterally Cardio Rate: tachycardic Rhythm: regular rhythm GI Inspection: normal to inspection Palpation: soft, not firm, not rigid and nontender Auscultation: normal bowel sounds Skin General skin exam: no rashes or lesions noted Neuro General: alert, awake and oriented x3 Cognition: normal cognition Speech: speech normal Motor: muscle tone normal throughout Sensory Exam: no sensory deficits noted Extrem General: normal to inspection, full ROM, normal capillary refill, no calf tenderness bilaterally and no edema Psych Appearance: grossly normal Mental Status: mental status grossly normal Speech and Movement: speech and movement normal Affect: normal affect
[2019-06-08] MEDS: Adenosine 6 MG/2 ML VIAL IVP (13:07)
[2019-06-08 13:09] LABS: Abs Immature Grans 0.06 k/cumm (0.0-0.09); Absolute Basophil Count 0.04 k/cumm (0.0-0.2); Absolute Eosinophil Count 0.06 k/cumm (0.0-0.7); Absolute Lymphocyte Count 2.63 k/cumm (1.2-3.4); Absolute Monocyte Count 0.72 k/cumm (0.11-0.7); Absolute Neutrophil Count 5.82 k/cumm (1.2-6.7); Basophils % 0.4; Eosinophils % 0.6; HCT 47.8 % (40.0-50.0); HGB 15.9 g/dL (13.5-17.5); Immature Grans % 0.6; Lymphocytes % 28.2; Mean Corp. HGB Concentration 33.3 g/dL (32.0-36.0); Mean Corpuscular Hemoglobin 32.5 pg (27.0-33.0); Mean Corpuscular Volume 97.8 fL (80-95); Mean Platelet Volume 9.1 fL (8.0-11.0); Monocytes % 7.7; Neutrophils % 62.5; Platelet Count 268 x1000/uL (130-400); RBC 4.89 m/cumm (4.50-6.00); RBC Distribution Width 13.3 % (11.8-14.1); White Blood Cell Count 9.33 k/cumm (4.4-10.8)
[2019-06-08 13:23] LABS: ALT 31 U/L (16-63); AST 18 U/L (15-37); Albumin 4.5 g/dL (3.4-5.0); Alkaline Phosphatase 88 U/L (46-116); Anion Gap 13.2 mmol/L (3-11); BUN 14 mg/dL (7-18); Bilirubin, Total 0.5 mg/dL (0.2-1.0); CO2 24.8 mmol/L (21.0-32.0); CREATININE 0.97 mg/dL (0.70-1.30); Calcium 9.3 mg/dL (8.5-10.1); Chloride 101 mmol/L (98-107); Glucose 147 mg/dL (74-106); Magnesium 2.1 mg/dL (1.8-2.4); Potassium 3.6 mmol/L (3.5-5.1); Sodium 139 mmol/L (136-145); Total Protein 8.8 g/dL (6.4-8.2)
[2019-06-08 13:24] LABS: Troponin I < 0.05 ng/Ml (<0.06)
--- NOTE | 2019-06-08 13:31 | DI.RAD_ITS ---
EXAM: XR PORTABLE CHEST AP XR PORTABLE CHEST AP CLINICAL HISTORY: svt, palpitations, r/o acute disease. svt, palpitations, r/o acute disease TECHNIQUE: 2D digital imaging was performed. COMPARISON: XR PORTABLE CHEST AP from 05/26/2019 FINDINGS: LUNGS: Clear. No pleural abnormality seen. HEART: Normal. MEDIASTINUM: Normal. OTHER FINDINGS: None. IMPRESSION: No acute pulmonary findings.
[2019-06-08] MEDS: LORazepam 2 MG/ML VIAL 0.5 MG IVP ×2 (13:59→14:14)
[2019-06-08] MEDS: hydrOXYzine HCL 25 MG TAB PO (14:54)
[2019-06-08] MEDS: Metoprolol 25 MG TAB PO (15:32)
== END 2019-06-08 15:44 | disposition home or self-care (01) ==
PROVIDERS: Emergency Provider Physician Assistant; PCP Family Medicine
DX: I47.1 Supraventricular tachycardia (principal); I10 Essential (primary) hypertension; K62.5 Hemorrhage of anus and rectum; Z85.048 Personal history of other malignant neoplasm of rectum, rectosigmoid junction, and anus
CPT/HCPCS: 36415; 80053; 93005; 96374; 96376; 99213; 99285; 71045; 83735; 84484; 85025; 93010; J0153; J2060

== ENCOUNTER 2019-07-15 15:38 | Emergency (ER) | payer MEDICARE, MEDICAID, SELFPAY ==
[2019-07-15] VITALS (41 sets, daily range): BP systolic 104–138; BP diastolic 77–103; PULSE 77–155; RESP 12–32; TEMP 37.2; O2SAT 93–98
--- NOTE | 2019-07-15 15:47 | W.ED.GENAD ---
Discharge Plan Disposition Patient Disposition: HOME Condition: Good Discharge Details Chief Complaint: Palpitatns Clinical Impression: SVT (supraventricular tachycardia) Primary Care Provider: Ke Mcconnell ED Provider: Yessenia [place] Meds and New Rx's Prescriptions: Continued quetiapine [Seroquel] 400 mg tablet 400 mg PO BID RF: 0 gabapentin 300 mg capsule 300 mg PO TID RF: 0 polyethylene glycol 3350 [Miralax] 527 GM powder 1 cap PO PRN RF: 0 hydroxyzine HCl 25 mg tablet 25 mg PO TID PRN (Reason: anxiety) Qty: 10 RF: 0 Discontinued metoprolol tartrate 25 mg tablet 25 mg PO DAILY PRN (Reason: palpitations) Qty: 180 RF: 3 No Action metoprolol succinate 50 mg tablet extended release 24 hr 75 mg PO DAILY RF: 0 diazepam [Valium] 5 mg tablet 5 mg PO TID PRN (Reason: anxiety) Qty: 14 RF: 0 Discharge Instructions Instructions: Supraventricular Tachycardia (ED), Valsalva Maneuver (ED) Additional Instructions: Encourage water intake. Continue to cut back on caffeine. Please make the medication change as above, stop the metoprolol tartrate and add the metoprolol succinate 25 mg for a total of 75 mg of metoprolol succinate daily. You may take this together. Our hospice spiritual care coordinator will reach out to you on Thursday to schedule follow-up with cardiology. You may also call cardiology department. If you develop recurrent symptoms, chest pain, shortness of breath or the new/worsening symptoms please seek care urgently once again. Referrals: Troy Malagon MD [ CONSULTING PHYSICIAN] - Discharge Data Discharge Date/Time-TO BE ENTERED AT DEPARTURE: 07/15/19 19:10 Medical Decision Making Patient is 59-year-old gentleman presents today with chief complaint SVT. He reports that he has been here for this multiple times historically. Was last seen on 06/08/2019. At that time Patient was in SVT and responded well to 6mg IV adenosine. He reports this began approximately 1 hour prior to arrival while walking into the kitchen. He is currently experiencing lightheadedness, palpitations. states that this feels like when he has had SVT historically. No inciting incident. Denies CP. Reports that he has been trying to perform Valsalva maneuvers without resolution of his symptoms. On initial exam, patient appears quite anxious. Heart rate of 150. EKG was reviewed by Dr. Thorpe and consistent with SVT. Patient and I discussed treatment options. Will attempt Valsalva maneuvers, if this is unsuccessful, he has responded well to adenosine historically. Patient self converted immediately after the IV was placed. Initially, the patient was in SVT with a rate of 151. Subsequent EKG was also evaluated. Both of these were reviewed by Dr. Thorpe. Patient is now in a normal sinus rhythm with a rate of 94. He reports he is feeling very anxious. States he feels like he is having anxiety attack. Reports that he felt like this after his last episode of SVT. Patient given 0.5 mg of Ativan initially, after minimal success with this, will augment with another 0.5. Awaiting callback from cardiology regarding consultation. Questioning if we can adjust the metoprolol dosing and have the patient to twice daily dosing instead of once daily. Consulted with Dr. Montoya with cardiology at [facility]. He advised that we Stop the metoprolol tartate, increase the motoprolol succinate to 75 QD. Also advised prompt follow up with cardiology. Cardiology referral has already been sent by PCP. Will ask hospice spiritual care coordinator to help facilitate prompt follow up Patient continues to be symptom-free. He is in agreement with the change in medications. Plan discharge home. Strict return precautions were given.. Patient will follow-up with cardiology as close as possible. All of his questions and concerns were addressed and is agreement this plan. HPI General Mode of arrival: ambulatory. Date/Time Provider Initiated Documentation: 07/15/19 15:38. Limitations to Documentation: no limitations. Information obtained by: patient and RN notes reviewed. History of Present Illness 59 year old M presents to the emergency department with the chief complaint of SVT, described as similar to prior episodes, Quality is described as other (anxious, lightheaded and experiencing palpitations), Patient started experiencing this hour(s) (1) and it has been constant. No relieving factors improve symptom(s), No exacerbating factors reported (has attempted valsalva maneurver without success) . Patient notes denies denies other symptoms, confusion, chest pain, cough, diaphoresis, fever/chills, headaches, nausea/vomiting, rash, shortness of breath and weakness. Patient did receive the following treatments prior to arrival, none Related Data Home Medications Medication Instructions Recorded Confirmed polyethylene glycol 3350 [Miralax] 1 cap PO PRN 11/29/13 07/22/19 gabapentin 300 mg capsule 300 mg PO TID 05/04/18 07/22/19 quetiapine 400 mg tablet 400 mg PO BID 05/04/18 07/22/19 hydroxyzine HCl 25 mg PO TID PRN #10 tab 06/08/19 07/22/19 metoprolol succinate 75 mg PO DAILY 07/17/19 07/22/19 diazepam [Valium] 5 mg PO TID PRN #14 tab 07/22/19 Previous Rx's Medication Instructions Recorded hydroxyzine HCl 25 mg PO TID PRN #10 tab 06/08/19 diazepam [Valium] 5 mg PO TID PRN #14 tab 07/22/19 Allergies Allergy/AdvReac Type Severity Reaction Status Date / Time codeine Allergy Mild Itching Verified 07/22/19 08:15 aspirin AdvReac Severe Nausea Verified 07/22/19 08:15 Interferons AdvReac Severe NAUSEA, Verified 07/22/19 08:15 WEIGHT LOSS General GLADYS: 2 Review of Systems Constitutional Constitutional: Reports as per HPI, Denies chills, Denies fever(s), Denies headache(s), Denies lethargy and Denies poor appetite Eyes Eyes: Denies change in vision ENT Ears, Nose, Mouth, and Throat: Denies dizziness and Denies headache(s) Cardiovascular Cardiovascular: Reports as per HPI, Denies chest pain, Denies chest pain at rest, Denies chest pain with activity, Denies syncope, Reports lightheadedness, Denies radiating jaw, neck or arm pain, Reports palpitations, Denies dyspnea and Denies dyspnea on exertion Respiratory Respiratory: Reports as per HPI, Denies chest congestion, Denies cough, Denies pain on inspiration, Denies pain with cough, Denies dyspnea, Denies dyspnea on exertion and Denies wheezing Gastrointestinal Gastrointestinal: Reports as per HPI, Denies abdominal pain, Denies diarrhea, Denies nausea and Denies vomiting Genitourinary Genitourinary: Denies system reviewed and no additional complaints, except as docu (denies change in urinary habits) Musculoskeletal Musculoskeletal: Reports as per HPI and Denies back pain Integumentary/Breasts Skin/Breast: Reports as per HPI and Denies rash Neurologic Neurologic: Reports as per HPI, Denies dizziness, Denies syncope and Denies headache(s) Endocrine Endocrine: Reports palpitations Allergic/Immunologic Allergic/Immunologic: Denies wheezing [facility] Medical History Alcohol abuse Anxiety (Chronic) Back pain (Acute) Bipolar disorder Chronic back pain Colon cancer Hepatitis C HTN (hypertension) Legg-Perthes disease Post laminectomy syndrome (Chronic) Rectal bleeding (Acute) Sacroiliac dysfunction (Chronic) Spondylosis of lumbar region without myelopathy or radiculopathy (Chronic) Surgical History Colectomy (~2009) Sigmoid Resection Colonoscopy - MAC (09/28/18) Patient formerly followed by [facility]. Hx of rectal cancer. [place] 12/30/16 CD noted rectal lesion/rectal stenosis, path showed histological features of regeneration/repair. CD rec'd patient follow up in office in 6 mos. No f/up. 09/02/18 Dr Leggett patient has passed blood/clot in stool. mg 09/28/18 - [place] with Kathy Leon, rec's consult in 6 months with possible dilation. mg History of cystoscopy (Acute) Open Carpal Tunnel release (~2001) RIGHT removal of pain pump (11/19/16) Replacement of total knee joint bilateral knee reconstruction; x2 S/P total knee replacement (Acute) Sigmoidoscopy (11/26/16) Spinal Fusion (~1995) L5-S2 Total replacement of hip (~2006) RIGHT Social History Smoking/Tobacco Use Status: Current every day Tobacco Type: cigarettes Counseling given: patient declined Alcohol Intake: never Drug use: Occasionally Substance use type: marijuana Pets and animals: Yes Pets and animals: cat(s) Duration: decline to answer Frequency: 3-4 times per week Jillian/Yarsani: No preference Special jillian needs: No Do you feel safe at home: Yes Do you feel safe in your relationship?: Yes Exam Const General: cooperative, healthy appearing, no acute distress, well developed and anxious Nutritional Appearance: average body habitus and well nourished Orientation: alert, awake and oriented x3 HENMT Head: normal to inspection Ears: hearing grossly normal bilaterally Mouth: moist mucous membranes Chest Chest: normal inspection of the chest, normal palpation of entire chest wall and no crepitus Resp Effort & Inspection: normal respiratory effort, able to speak in complete sentences and no respiratory distress Auscultation: clear to auscultation bilaterally, no rales, no rhonchi and no wheezes Cardio Rate: tachycardic Rhythm: regular rhythm Heart Sounds: S1 normal and S2 normal GI Inspection: normal to inspection, no edema and non-distended Palpation: soft, no hepatosplenomegaly, not firm, no guarding, not rigid and nontender Auscultation: normal bowel sounds Back/Spine/Pelvis Back: no CVA tenderness Thoracic/Lumbar Spine: thoracic and lumbar spine normal to inspection Skin General skin exam: no rashes or lesions noted Trauma: no lacerations or abrasions Neuro General: alert, awake and oriented x3 Cognition: normal cognition Speech: speech normal Gait: normal gait Extrem General: normal to inspection, normal capillary refill, no pedal edema, no calf tenderness and normal gait Psych Appearance: grossly normal and well kempt Mental Status: mental status grossly normal Speech and Movement: speech and movement normal
[2019-07-15] MEDS: Normal Saline 1,000 ML 150 ML IV (16:02)
[2019-07-15] MEDS: LORazepam 2 MG/ML VIAL 0.5 MG IVP ×2 (16:07→16:44)
[2019-07-15 16:08] LABS: Abs Immature Grans 0.04 k/cumm (0.0-0.09); Absolute Basophil Count 0.03 k/cumm (0.0-0.2); Absolute Eosinophil Count 0.09 k/cumm (0.0-0.7); Absolute Lymphocyte Count 2.76 k/cumm (1.2-3.4); Absolute Monocyte Count 0.74 k/cumm (0.11-0.7); Absolute Neutrophil Count 3.84 k/cumm (1.2-6.7); Basophils % 0.4; Eosinophils % 1.2; HGB 15.2 g/dL (13.5-17.5); Immature Grans % 0.5 %; Lymphocytes % 36.8; Mean Corp. HGB Concentration 33.8 g/dL (32.0-36.0); Mean Corpuscular Volume 97.6 fL (80-95); Mean Platelet Volume 9.3 fL (8.0-11.0); Monocytes % 9.9; Neutrophils % 51.2; Platelet Count 248 x1000/uL (130-400); RBC 4.61 m/cumm (4.50-6.00)
[2019-07-15 16:21] LABS: ALT 28 U/L (16-63); AST 14 U/L (15-37); Albumin 4.2 g/dL (3.4-5.0); Alkaline Phosphatase 91 U/L (46-116); Anion Gap 10.6 mmol/L (3-11); BUN 10 mg/dL (7-18); Bilirubin, Total 0.4 mg/dL (0.2-1.0); CO2 28.4 mmol/L (21.0-32.0); Chloride 101 mmol/L (98-107); Glucose 101 mg/dL (74-106); Potassium 3.5 mmol/L (3.5-5.1); Sodium 140 mmol/L (136-145); Total Protein 8.5 g/dL (6.4-8.2)
[2019-07-15 16:22] LABS: Troponin I < 0.05 ng/Ml (<0.06)
[2019-07-15] MEDS: Metoprolol 25 MG TAB PO (19:15)
== END 2019-07-15 19:10 | disposition home or self-care (01) ==
PROVIDERS: Emergency Provider Physician Assistant; PCP Family Medicine
DX: I47.1 Supraventricular tachycardia (principal); I10 Essential (primary) hypertension
CPT/HCPCS: 80053; 93005; 96374; 96375; 99284; 83735; 84484; 85025; 93010; J2060

== ENCOUNTER 2019-07-17 09:38 | Emergency (ER) | payer MEDICARE, MEDICAID, SELFPAY ==
[2019-07-17] VITALS (34 sets, daily range): BP systolic 102–122; BP diastolic 52–96; PULSE 74–151; RESP 14–28; TEMP 36.4; O2SAT 96–100
[2019-07-17] MEDS: Normal Saline 1,000 ML 1000 ML IV (09:57)
[2019-07-17] MEDS: Adenosine 6 MG/2 ML VIAL (10:01)
--- NOTE | 2019-07-17 10:10 | W.ED.GENAD ---
Discharge Plan Disposition Patient Disposition: HOME Condition: Good Discharge Details Chief Complaint: Palpitatns Clinical Impression: SVT (supraventricular tachycardia), Anxiety Primary Care Provider: Ke Mcconnell ED Provider: Lucy Thorpe Home Meds and New Rx's Prescriptions: No Action quetiapine [Seroquel] 400 mg tablet 400 mg PO BID RF: 0 gabapentin 300 mg capsule 300 mg PO TID RF: 0 polyethylene glycol 3350 [Miralax] 527 GM powder 1 cap PO PRN RF: 0 hydroxyzine HCl 25 mg tablet 25 mg PO TID PRN (Reason: anxiety) Qty: 10 RF: 0 metoprolol succinate 50 mg tablet extended release 24 hr 75 mg PO DAILY RF: 0 Discharge Instructions Instructions: Supraventricular Tachycardia (ED), Anxiety (ED) Additional Instructions: Start taking your 75mg metoprolol succinate starting tomorrow. Call cardiology and [facility] services tomorrow to schedule follow-up appointments as soon as possible. [facility] is currently in the process of obtaining a cardiology appointment for you as soon as possible. You should still call the cardiology office to ensure this appointment is scheduled. You will receive a call from care management regarding a follow-up appointment with [facility] [employer]. Take the valium as needed and directed for anxiety. Return to the emergency department with any worsening or new concerning symptoms. Discharge Data Discharge Date/Time-TO BE ENTERED AT DEPARTURE: 07/17/19 12:49 Discharge Physician: Lucy Thorpe Medical Decision Making 8581 -- 59-year-old male with a history of former alcohol abuse, quit 7 years ago, hepatitis C, hypertension and SVT who presents with palpitations that started while resting at home 1 hour ago. This is patient's fourth visit in the last 2 months. He was seen here 2 days ago for the same complaint and spontaneously converted to sinus. He was discharged home at that time after discussion with cardiology with plan to stop patient's metoprolol tartrate and increase his metoprolol succinate from 50 to 75 mg daily. Patient states he was unable to fill this prescription due to transportation but states it is ready for pickup today. Patient states he feels that his anxiety is the source of his SVT. He was given 2 doses of 0.5 mg Ativan 2 days ago but he states this did not help him. He states he plans to follow-up with his primary care doctor to likely start a medication for anxiety. Heart rate on arrival 150s 160s. Blood pressure 116/94. He appears nontoxic. EKG on arrival notes a rate of 153, SVT, no acute ST ischemic changes. Attempted modified Valsalva x2 without success at bedside. Patient given 6 mg adenosine IV at bedside and converted to sinus. Repeat EKG notes a rate of 97, sinus with no acute ST ischemic changes. Patient was given 1 mg Ativan after he converted to help with his anxiety as he still felt anxious with palpitations although heart rate 80s to 90s. 1050 -- Screening labs done on arrival and unremarkable. Troponin negative. Chest x-ray negative. I do not see indication to call cardiology at this time as they were consulted 2 days ago and patient has not started his new regimen yet. He is advised to start taking his metoprolol succinate 75 mg tomorrow morning. He states he is calling cardiology tomorrow morning for follow-up. Patient denied significant relief with Ativan and requested Valium. A dose was given here and he had relief with his anxiety. He was given 3 tabs of Valium to go. He was advised that he follow-up with [facility] services nurse practitioner for any further need for medication for his anxiety and to call cardiology tomorrow. Discussed with ED hospice patient care secretary and they have referred patient to care management to ensure that these follow-ups occur. Usual and customary return precautions given prior to discharge. Medical Records Medical records reviewed: Yes I reviewed the patient's medical records. Imaging Data Radiologic Study: Radiologist's impression: XR Chest, 1 View Exam date and time: 07/17/2019 10:25 AM Age: 59 years old Clinical indication: Chest pain; Type not specified TECHNIQUE: Imaging protocol: XR of the chest Views: 1 view. COMPARISON: CR CHEST 2 VIEWS PA,LAT 11/30/2017 9:18 PM FINDINGS: Lungs: Left basilar atelectasis No consolidation. Pleural space: Unremarkable. No pleural effusion. No pneumothorax. Heart/Mediastinum: Stable cardiac silhouette Bones/joints: Osseous structures are stable Other findings: Overlying EKG wires IMPRESSION: No acute process Lab Data Lab results reviewed: Yes I reviewed the patient's lab results. Labs: Laboratory Tests Range/Units 07/17/19 07/17/19 09:51 09:51 WBC (4.4-10.8) k/cumm 6.24 RBC (4.50-6.00) m/cumm 4.49 L Hgb (13.5-17.5) g/dL 15.0 Hct (40.0-50.0) % 43.8 MCV (80-95) fL 97.6 H MCH (27.0-33.0) pg 33.4 H MCHC (32.0-36.0) g/dL 34.2 RDW (11.8-14.1) % 13.2 Plt Count (130-400) x1000/uL 252 MPV (8.0-11.0) fL 9.3 Immature Gran % % 0.8 Neutrophils % 57.3 Lymphocytes % 28.7 Monocytes % 11.7 Eosinophils % 1.0 Basophils % 0.5 Absolute Neutrophils (1.2-6.7) k/cumm 3.58 Absolute Lymphocytes (1.2-3.4) k/cumm 1.79 Absolute Monocytes (0.11-0.7) k/cumm 0.73 H Absolute Eosinophils (0.0-0.7) k/cumm 0.06 Absolute Basophils (0.0-0.2) k/cumm 0.03 Sodium (136-145) mmol/L 144 Potassium (3.5-5.1) mmol/L 3.7 Chloride (98-107) mmol/L 103 Carbon Dioxide (21.0-32.0) mmol/L 29.5 Anion Gap (3-11) mmol/L 11.5 H BUN (7-18) mg/dL 14 Creatinine (0.70-1.30) mg/dL 0.84 Estimated GFR/1.73 m2 (mL/min/1.73m2) >= 60.00 Glucose (74-106) mg/dL 120 H Calcium (8.5-10.1) mg/dL 8.6 Magnesium (1.8-2.4) mg/dL 2.1 Total Bilirubin (0.2-1.0) mg/dL 0.4 AST (15-37) U/L 17 ALT (16-63) U/L 25 Alkaline Phosphatase (46-116) U/L 87 Troponin I (<0.06) ng/Ml < 0.05 Total Protein (6.4-8.2) g/dL 7.7 Albumin (3.4-5.0) g/dL 3.8 ECG Data Attestation: I personally reviewed and interpreted this ECG (s) as follows: Interpretation: #1 --Rate of 153, SVT, no acute ST elevation or depression. QTc 463. QRS 86. #2 --Rate of 97, sinus, no acute ST elevation or depression. NH 192. QTc 450. QRS 110. HPI General Mode of arrival: ambulatory. Date/Time Provider Initiated Documentation: 07/17/19 09:43. Limitations to Documentation: no limitations. Information obtained by: patient. History of Present Illness 59 year old M presents to the emergency department with the chief complaint of palpitations, h/o svt, Patient started experiencing this hour(s) (1) and it has been constant. No relieving factors improve symptom(s), No exacerbating factors reported . Patient notes denies chest pain, cough, diaphoresis, fever/chills, headaches, loss of appetite, nausea/vomiting and shortness of breath. Patient did receive the following treatments prior to arrival, other (Took 50 mg metoprolol succinate, and 50 mg metoprolol tartrate this morning) Related Data Home Medications Medication Instructions Recorded Confirmed polyethylene glycol 3350 [Miralax] 1 cap PO PRN 11/29/13 07/17/19 gabapentin 300 mg capsule 300 mg PO TID 05/04/18 07/17/19 quetiapine 400 mg tablet 400 mg PO BID 05/04/18 07/17/19 hydroxyzine HCl 25 mg PO TID PRN #10 tab 06/08/19 07/17/19 metoprolol succinate 75 mg PO DAILY 07/17/19 07/17/19 Previous Rx's Medication Instructions Recorded hydroxyzine HCl 25 mg PO TID PRN #10 tab 06/08/19 Allergies Allergy/AdvReac Type Severity Reaction Status Date / Time codeine Allergy Mild Itching Verified 07/17/19 09:48 aspirin AdvReac Severe Nausea Verified 07/17/19 09:48 Interferons AdvReac Severe NAUSEA, Verified 07/17/19 09:48 WEIGHT LOSS General Stated Complaint: Palpitatns GLADYS: 2 Review of Systems All systems reviewed & are unremarkable except as noted in HPI and below Constitutional Constitutional: Reports as per HPI, Denies chills and Denies fever(s) Eyes Eyes: Denies blurry vision ENT Ears, Nose, Mouth, and Throat: Denies dizziness, Denies sore throat and Denies throat swelling Cardiovascular Cardiovascular: Denies chest pain, Reports palpitations and Denies dyspnea Respiratory Respiratory: Denies cough and Denies dyspnea Gastrointestinal Gastrointestinal: Denies abdominal pain, Denies diarrhea and Denies vomiting Genitourinary Genitourinary: Denies hematuria and Denies dysuria Musculoskeletal Musculoskeletal: Denies back pain and Denies numbness Integumentary/Breasts Skin/Breast: Denies lesions and Denies rash Neurologic Neurologic: Denies dizziness, Denies focal weakness and Denies numbness Endocrine Endocrine: Reports palpitations Allergic/Immunologic Allergic/Immunologic: Denies throat swelling [facility] Medical History Alcohol abuse Anxiety (Chronic) Back pain (Acute) Bipolar disorder Chronic back pain Colon cancer Hepatitis C HTN (hypertension) Legg-Perthes disease Post laminectomy syndrome (Chronic) Rectal bleeding (Acute) Sacroiliac dysfunction (Chronic) Spondylosis of lumbar region without myelopathy or radiculopathy (Chronic) Surgical History Colectomy (~2009) Sigmoid Resection Colonoscopy - MAC (09/28/18) Patient formerly followed by [facility]. Hx of rectal cancer. [place] 12/30/16 CD noted rectal lesion/rectal stenosis, path showed histological features of regeneration/repair. CD rec'd patient follow up in office in 6 mos. No f/up. 09/02/18 Dr Leggett patient has passed blood/clot in stool. mg 09/28/18 - [place] with Kathy Leon, rec's consult in 6 months with possible dilation. mg History of cystoscopy (Acute) Open Carpal Tunnel release (~2001) RIGHT removal of pain pump (11/19/16) Replacement of total knee joint bilateral knee reconstruction; x2 S/P total knee replacement (Acute) Sigmoidoscopy (11/26/16) Spinal Fusion (~1995) L5-S2 Total replacement of hip (~2006) RIGHT Social History Smoking/Tobacco Use Status: Current every day Tobacco Type: cigarettes Counseling given: patient declined Alcohol Intake: never Drug use: Occasionally Substance use type: does not use Pets and animals: Yes Pets and animals: cat(s) Duration: decline to answer Frequency: 3-4 times per week Jillian/Lutheran: No preference Special jillian needs: No Do you feel safe at home: Yes Do you feel safe in your relationship?: Yes Exam Const General: cooperative, healthy appearing and no acute distress HENMT Head: normal to inspection Face and sinus: normal facial exam Eyes General: appearance normal, both eyes and all related structures EOM: EOM intact bilaterally Neck Neck: normal visual inspection and No submandibular swelling Lymphatic: no lymphadenopathy noted Chest Chest: normal inspection of the chest and no tenderness Resp Effort & Inspection: normal respiratory effort and able to speak in complete sentences Auscultation: clear to auscultation bilaterally Cardio Rate: tachycardic Rhythm: regular rhythm GI Inspection: normal to inspection Palpation: soft, not firm, not rigid and nontender Auscultation: normal bowel sounds Skin General skin exam: no rashes or lesions noted Neuro General: alert, awake and oriented x3 Cognition: normal cognition Speech: speech normal Motor: muscle tone normal throughout Sensory Exam: no sensory deficits noted Extrem General: normal to inspection, full ROM, normal capillary refill, no calf tenderness bilaterally and no edema Psych Appearance: grossly normal Mental Status: mental status grossly normal Speech and Movement: speech and movement normal Affect: normal affect Course Vital Signs Vital signs: Vital Signs Temperature 97.5 F L 07/17/19 09:45 Pulse 151 H 07/17/19 09:45 Respiratory Rate 28 H 07/17/19 09:45 Blood Pressure 116/94 H 07/17/19 09:45 Pulse Oximetry 98 07/17/19 09:45 Temperature 97.5 F L 07/17/19 09:45 Temperature Source Temporal Artery Scan 07/17/19 09:45 Pulse 151 H 07/17/19 09:45 Respiratory Rate 28 H 07/17/19 09:45 Respiratory Effort Non-Labored 07/17/19 09:47 Blood Pressure 116/94 H 07/17/19 09:45 Blood Pressure Position Sitting 07/17/19 09:45 Pulse Oximetry 98 07/17/19 09:45 Oxygen Delivery Method Room Air 07/17/19 09:45 Oxygen Flow Rate 0 07/17/19 09:45 Pain Level 0 07/17/19 09:45
[2019-07-17] MEDS: LORazepam 2 MG/ML VIAL 1 MG IVP (10:14)
[2019-07-17 10:29] LABS: Abs Immature Grans 0.05 k/cumm (0.0-0.09); Absolute Basophil Count 0.03 k/cumm (0.0-0.2); Absolute Eosinophil Count 0.06 k/cumm (0.0-0.7); Absolute Lymphocyte Count 1.79 k/cumm (1.2-3.4); Absolute Monocyte Count 0.73 k/cumm (0.11-0.7); Absolute Neutrophil Count 3.58 k/cumm (1.2-6.7); Basophils % 0.5; HCT 43.8 % (40.0-50.0); Immature Grans % 0.8 %; Lymphocytes % 28.7; Mean Corp. HGB Concentration 34.2 g/dL (32.0-36.0); Mean Corpuscular Hemoglobin 33.4 pg (27.0-33.0); Mean Corpuscular Volume 97.6 fL (80-95); Mean Platelet Volume 9.3 fL (8.0-11.0); Monocytes % 11.7; Neutrophils % 57.3; Platelet Count 252 x1000/uL (130-400); RBC 4.49 m/cumm (4.50-6.00); RBC Distribution Width 13.2 % (11.8-14.1); White Blood Cell Count 6.24 k/cumm (4.4-10.8)
--- NOTE | 2019-07-17 10:30 | DI.RAD_ITS ---
EXAM: XR PORTABLE CHEST AP INDICATION: palpitations, r/o acute disease. COMPARISON: XR PORTABLE CHEST AP from 06/08/2019 TECHNIQUE: 2D digital imaging was performed. FINDINGS: Leads overlie the chest. They somewhat obscure the left lung base and cardiac silhouette. The heart size is normal. There is no mediastinal widening. No infiltrate, effusion or pulmonary edema is see n. IMPRESSION: Somewhat limited exam. No acute abnormality.
[2019-07-17 10:46] LABS: ALT 25 U/L (16-63); AST 17 U/L (15-37); Albumin 3.8 g/dL (3.4-5.0); Alkaline Phosphatase 87 U/L (46-116); Anion Gap 11.5 mmol/L (3-11); BUN 14 mg/dL (7-18); Bilirubin, Total 0.4 mg/dL (0.2-1.0); CO2 29.5 mmol/L (21.0-32.0); CREATININE 0.84 mg/dL (0.70-1.30); Calcium 8.6 mg/dL (8.5-10.1); Chloride 103 mmol/L (98-107); Glucose 120 mg/dL (74-106); Magnesium 2.1 mg/dL (1.8-2.4); Potassium 3.7 mmol/L (3.5-5.1); Sodium 144 mmol/L (136-145); Total Protein 7.7 g/dL (6.4-8.2)
[2019-07-17 10:48] LABS: Troponin I < 0.05 ng/Ml (<0.06)
--- NOTE | 2019-07-17 10:51 | DI.VRAD_ITS ---
PROCEDURE INFORMATION: Exam: XR Chest, 1 View Exam date and time: 07/17/2019 10:25 AM Age: 59 years old Clinical indication: Chest pain; Type not specified TECHNIQUE: Imaging protocol: XR of the chest Views: 1 view. COMPARISON: CR CHEST 2 VIEWS PA,LAT 11/30/2017 9:18 PM FINDINGS: Lungs: Left basilar atelectasis No consolidation. Pleural space: Unremarkable. No pleural effusion. No pneumothorax. Heart/Mediastinum: Stable cardiac silhouette Bones/joints: Osseous structures are stable Other findings: Overlying EKG wires IMPRESSION: No acute process Dictated and Authenticated by: Maricruz Samuels MD. Ordering:VIOLET Ayala MD
[2019-07-17] MEDS: diazePAM 5 MG TAB PO (11:36)
[2019-07-17] MEDS: diazePAM 5 MG TAB 15 MG PO (12:50)
== END 2019-07-17 12:49 | disposition home or self-care (01) ==
PROVIDERS: Emergency Provider Physician Assistant; PCP Family Medicine
DX: I47.1 Supraventricular tachycardia (principal); F41.9 Anxiety disorder, unspecified; I10 Essential (primary) hypertension; F31.9 Bipolar disorder, unspecified
CPT/HCPCS: 36415; 80053; 93005; 96361; 96374; 96375; 99285; 71045; 83735; 84484; 85025; 93010; J0153; J2060

== ENCOUNTER 2019-07-22 07:42 | Emergency (ER) | payer MEDICARE, MEDICAID, SELFPAY ==
[2019-07-22] VITALS (38 sets, daily range): BP systolic 107–141; BP diastolic 81–107; PULSE 73–125; RESP 13–25; TEMP 36.5–36.7; O2SAT 91–98
--- NOTE | 2019-07-22 08:03 | ED.GENADUL_ITS ---
Discharge Plan Disposition Patient Disposition: HOME Condition: Stable Discharge Details Chief Complaint: Palpitatns Clinical Impression: Anxiety, Heart palpitations, Sinus tachycardia Primary Care Provider: Ke Mcconnell ED Provider: Erasmo Ramirez Home Meds and New Rx's Prescriptions: New diazepam [Valium] 5 mg tablet 5 mg PO TID PRN (Reason: anxiety) Qty: 14 RF: 0 Continued quetiapine [Seroquel] 400 mg tablet 400 mg PO BID RF: 0 gabapentin 300 mg capsule 300 mg PO TID RF: 0 polyethylene glycol 3350 [Miralax] 527 GM powder 1 cap PO PRN RF: 0 hydroxyzine HCl 25 mg tablet 25 mg PO TID PRN (Reason: anxiety) Qty: 10 RF: 0 metoprolol succinate 50 mg tablet extended release 24 hr 75 mg PO DAILY RF: 0 Discharge Instructions Instructions: Diazepam (By mouth), Anxiety (ED) Additional Instructions: follow up with your primary care provider next week if you have worsening symptoms, feel more ill or have more pain return to the emergency department Medical Decision Making 59 yo male with hx of svt, hepatitis c, who comes in with complaints of feeling his heart rate elevated since this morning. Denies fevers, chest pain or pressure, has mild dyspnea but not in respiratory distress. He does appear anxious on exam, no jvd, no peripheral edema. HE is in sinus tachycardia with rate of 120. Will evaluate for possible PE, wells score is low with d dimer. No fevers so doubt infectious etiologies. NO chest pain or pressure so doubt acs at this time. Will tx with ivf and ativan and reassess. labs show mild increased lactate and d dimer elevated, will obtain cta. He preferred valium over ativan and now feels less anxious, HR 90. Will obtain cta and delta troponin and lactate, suspect mild elevation of lactate is from dehydration imaging and labs unremarkable and he remains asymptomatic. Feel he is safe for d/c, will have him f/u with pcp next week for his anxiety and has cardiology f/u already established, return precautions given Differential Diagnosis Differential Diagnosis: anxiety, pe, svt Medical Records Medical records reviewed: Yes I reviewed the patient's medical records. Imaging Data Radiologic Study: Attestation: I personally reviewed and interpreted this imaging study as follows: Imaging: X-Ray My impression: no acute findings Radiologic Study #2: Attestation: I personally reviewed and interpreted this imaging study as follows: Imaging: CT Scan Radiologist's impression: negative cta Lab Data Lab results reviewed: Yes I reviewed the patient's lab results. ECG Data Attestation: I personally reviewed and interpreted this ECG (s) as follows: Prior ECG tracings: available for review Interpretation: sinus tachycardia, rate of 125, pr 148, qtc 467 HPI General Mode of arrival: ambulatory . Date/Time Provider Initiated Documentation: 07/22/19 07:49 . Limitations to Documentation: no limitations . Information obtained by: patient . History of Present Illness 59 year old M presents to the emergency department with the chief complaint of palpitations, described as moderate, Patient started experiencing this hour(s) (3) and it has been constant. No relieving factors improve symptom(s), No exacerbating factors reported . Patient notes no other symptoms.. Patient did receive the following treatments prior to arrival, none Related Data Home Medications Medication Instructions Recorded Confirmed polyethylene glycol 3350 [Miralax] 1 cap PO PRN 11/29/07/22/19 gabapentin 300 mg capsule 300 mg PO TID 05/04/18 07/22/19 quetiapine 400 mg tablet 400 mg PO BID 05/04/18 07/22/19 hydroxyzine HCl 25 mg PO TID PRN #10 tab 06/08/19 07/22/19 metoprolol succinate 75 mg PO DAILY 07/17/19 07/22/19 diazepam [Valium] 5 mg PO TID PRN #14 tab 07/22/19 Previous Rx's Medication Instructions Recorded hydroxyzine HCl 25 mg PO TID PRN #10 tab 06/08/19 diazepam [Valium] 5 mg PO TID PRN #14 tab 07/22/19 Allergies Allergy/AdvReac Type Severity Reaction Status Date / Time codeine Allergy Mild Itching Verified 07/22/19 08:15 aspirin AdvReac Severe Nausea Verified 07/22/19 08:15 Interferons AdvReac Severe NAUSEA, Verified 07/22/19 08:15 WEIGHT LOSS General Stated Complaint: Palpitatns GLADYS: 3 Review of Systems All systems reviewed & are unremarkable except as noted in HPI and below Constitutional Constitutional: Denies chills, Denies fever(s) and Denies weakness Cardiovascular Cardiovascular: Denies chest pain Respiratory Respiratory: Denies cough Gastrointestinal Gastrointestinal: Denies abdominal pain, Denies nausea and Denies vomiting Musculoskeletal Musculoskeletal: Denies joint swelling Integumentary/Breasts Skin/Breast: Denies rash Neurologic Neurologic: Denies weakness Psychiatric Psychiatric: Denies depression [facility] Social History Smoking/Tobacco Use Status: Current every day Tobacco Type: cigarettes Counseling given: patient declined Alcohol Intake: never Drug use: Occasionally Substance use type: marijuana Pets and animals: Yes Pets and animals: cat(s) Duration: decline to answer Frequency: 3-4 times per week Jillian/Yazdanism: No preference Special jillian needs: No Do you feel safe at home: Yes Do you feel safe in your relationship?: Yes Exam Const General: no acute distress Orientation: alert HENMT Head: normal to inspection Ears: external ears normal General nose exam: external nose normal Mouth: moist mucous membranes Eyes General: appearance normal, both eyes and all related structures Neck Neck: normal visual inspection Resp Effort & Inspection: normal respiratory effort and able to speak in complete sentences Cardio Rate: tachycardic Skin General skin exam: no rashes or lesions noted Neuro General: alert and oriented x3 Extrem General: normal to inspection Psych Mental Status: mental status grossly normal Course Vital Signs Vital signs: Vital Signs Temperature 36.5 C 07/22/19 07:50 Pulse 125 H 07/22/19 07:50 Respiratory Rate 07/22/19 07:50 Blood Pressure 107/85 07/22/19 07:50 Pulse Oximetry 98 07/22/19 07:50 Temperature 36.5 C 07/22/19 07:50 Temperature Source Temporal Artery Scan 07/22/19 07:50 Pulse 125 H 07/22/19 07:50 Respiratory Rate 07/22/19 07:50 Blood Pressure 107/85 07/22/19 07:50 Blood Pressure Position Supine 07/22/19 07:50 Pulse Oximetry 98 07/22/19 07:50 Oxygen Delivery Method Room Air 07/22/19 07:50 Oxygen Flow Rate 0 07/22/19 07:50 Pain Level 0 07/22/19 07:50
[2019-07-22] MEDS: Normal Saline 1,000 ML 1000 ML IV ×2 (08:11→09:50)
[2019-07-22 08:13] LABS: Abs Immature Grans 0.02 k/cumm (0.0-0.09); Absolute Basophil Count 0.03 k/cumm (0.0-0.2); Absolute Eosinophil Count 0.07 k/cumm (0.0-0.7); Absolute Lymphocyte Count 1.43 k/cumm (1.2-3.4); Absolute Monocyte Count 0.37 k/cumm (0.11-0.7); Absolute Neutrophil Count 3.19 k/cumm (1.2-6.7); Basophils % 0.6; Eosinophils % 1.4; HCT 45.5 % (40.0-50.0); HGB 15.2 g/dL (13.5-17.5); Immature Grans % 0.4 %; Mean Corp. HGB Concentration 33.4 g/dL (32.0-36.0); Mean Corpuscular Hemoglobin 32.6 pg (27.0-33.0); Mean Corpuscular Volume 97.6 fL (80-95); Monocytes % 7.2; Neutrophils % 62.4; Platelet Count 236 x1000/uL (130-400); RBC 4.66 m/cumm (4.50-6.00); RBC Distribution Width 13.4 % (11.8-14.1); White Blood Cell Count 5.11 k/cumm (4.4-10.8)
[2019-07-22 08:16] LABS: Lactate 2.3 mmol/L (0.6-1.4)
--- NOTE | 2019-07-22 08:18 | DI.RAD_ITS ---
EXAM: XR PORTABLE CHEST AP CLINICAL HISTORY: shortness of breath TECHNIQUE: COMPARISON: No exams were available for comparison FINDINGS: Portable AP view of the chest was obtained. Heart is not enlarged. Lungs appear clear and well expa nded. IMPRESSION: No evidence of acute process.
[2019-07-22 08:31] LABS: ALT 28 U/L (16-63); AST 18 U/L (15-37); Albumin 3.9 g/dL (3.4-5.0); Alkaline Phosphatase 87 U/L (46-116); Anion Gap 9.4 mmol/L (3-11); BUN 13 mg/dL (7-18); Bilirubin, Total 0.3 mg/dL (0.2-1.0); CO2 30.6 mmol/L (21.0-32.0); CREATININE 0.86 mg/dL (0.70-1.30); Calcium 9.7 mg/dL (8.5-10.1); Chloride 104 mmol/L (98-107); Glucose 159 mg/dL (74-106); Lipase 104 U/L (73-393); Potassium 3.9 mmol/L (3.5-5.1); Sodium 144 mmol/L (136-145); Total Protein 7.6 g/dL (6.4-8.2)
[2019-07-22 08:32] LABS: PTT Activated 26.1 sec (21.0-31.4)
[2019-07-22 08:33] LABS: Troponin I < 0.05 ng/Ml (<0.06)
[2019-07-22] MEDS: diazePAM 10 MG/2 ML SYR 5 MG IVP (08:34)
[2019-07-22 08:42] LABS: Troponin I < 0.05 ng/Ml (<0.06)
[2019-07-22 08:56] LABS: D-Dimer 660 ng/mlFEU (<500)
[2019-07-22] MEDS: Omnipaque 350 MG/ML 100 ML BTL IJ (09:29)
--- NOTE | 2019-07-22 09:34 | DI.CT_ITS ---
EXAM: CT CHEST PE CTA CLINICAL HISTORY: shortness of breath elevated d dimer TECHNIQUE: COMPARISON: CT renal colic wo from 09/02/2018 FINDINGS: CT angiography of the chest was performed bolus infusion of 100 cc of Omnipaque 350. There are sever e pulmonary centrilobular and subpleural emphysematous changes. No focal pulmonary consolidation. N o mediastinal or hilar adenopathy. No evidence of pulmonary embolic disease. Unremarkable appearanc e of thoracic aorta and major branches. No pleural effusion or pneumothorax. Images obtained through the upper abdomen show unremarkable appearance of visualized portions of live r spleen pancreas adrenals and kidneys. Note is made of cholelithiasis. No biliary dilatation as vi sualized. IMPRESSION: Severe COPD. No evidence of pulmonary embolic disease.
[2019-07-22 11:39] LABS: Lactate 0.9 mmol/L (0.6-1.4)
[2019-07-22 11:53] LABS: Troponin I < 0.05 ng/Ml (<0.06)
--- NOTE | 2019-07-22 13:04 | NUR.NOTE ---
Nursing Note: Referral faxed to PCP for follow up. Kala Gutierrez
== END 2019-07-22 12:24 | disposition home or self-care (01) ==
PROVIDERS: Emergency Provider Emergency Medicine; PCP Family Medicine
DX: F41.9 Anxiety disorder, unspecified (principal); R00.2 Palpitations; R00.0 Tachycardia, unspecified; R79.1 Abnormal coagulation profile; I47.2 Ventricular tachycardia
CPT/HCPCS: 36415; 71275; 80053; 83690; 93005; 96361; 96374; 99285; 71045; 83605; 83735; 84484; 85025; 85379; 85610; 85730; 93010; J3360; J3490

== ENCOUNTER 2019-08-16 10:42 | Emergency (ER) | payer MEDICARE, MEDICAID, SELFPAY ==
[2019-08-16] VITALS (42 sets, daily range): BP systolic 96–122; BP diastolic 72–88; PULSE 80–158; RESP 15–34; TEMP 36.5–36.9; O2SAT 90–100
[2019-08-16] MEDS: Adenosine 6 MG/2 ML VIAL IVP (11:12)
[2019-08-16] MEDS: Adenosine 6 MG/2 ML VIAL (11:18)
--- NOTE | 2019-08-16 11:20 | W.ED.GENAD ---
Discharge Plan Disposition Patient Disposition: HOME Discharge Details Chief Complaint: Palpitatns Clinical Impression: SVT (supraventricular tachycardia) Primary Care Provider: Ke Mcconnell ED Provider: Viktor Lowe Home Meds and New Rx's Prescriptions: New diltiazem HCl 120 mg capsule,extended release 12 hr 120 mg PO BID Qty: 60 RF: 0 Continued quetiapine [Seroquel] 400 mg tablet 400 mg PO BID RF: 0 gabapentin 300 mg capsule 300 mg PO BID RF: 0 polyethylene glycol 3350 [Miralax] 527 GM powder 1 cap PO PRN RF: 0 diazepam [Valium] 5 mg tablet 5 mg PO TID PRN (Reason: anxiety) Qty: 14 RF: 0 Discontinued metoprolol succinate 100 mg tablet extended release 24 hr 100 mg PO DAILY Qty: 90 RF: 3 Discharge Instructions Additional Instructions: Please avoid all caffeinated products. Please contact your primary care physician to arrange follow-up. Please follow-up with cardiology this week. Return to the ER for any worsening or new concerning symptoms. Referrals: Troy Malagon MD [MD CONSULTING PHYSICIAN] - Ke Mcconnell [Primary Care Provider] - Discharge Data Discharge Date/Time-TO BE ENTERED AT DEPARTURE: 08/16/19 13:52 Medical Decision Making 11:20 --59-year-old male with multiple medical problems including history of hepatitis C, multiple episodes of SVT in the recent past requiring adenosine treatment, here with palpitations. Initial ECG was reviewed and interpreted by me: Supraventricular tachycardia 161 bpm with no ischemic findings. I reviewed past medical record, patient has had multiple recent visits for SVT and has required adenosine treatment. I attempted Valsalva maneuver and carotid massage without effect. Patient provided verbal informed consent for cardioversion with adenosine. Adenosine 6 mg IV push was administered, patient did have brief sinus pause with 3-4 wide-complex beats and then return to SVT. Adenosine 12 mg IV push was administered, patient had 8 second asystolic pause, brief narrow complex tachycardia and then converted to sinus 90 to 100 bpm. --Patient has remained hemodynamically stable. engine monitor was reviewed by me and patient remains in sinus rhythm with heart rate in the 90s. I called and spoke with Dr. Malagon, on-call information specialist, discussed ED presentation and course including all diagnostics. He reviewed case and called me back and recommended stopping metoprolol, starting diltiazem 120 mg ER twice daily and he will see the patient in follow-up. He did recommend ordering outpatient echocardiogram to expedite outpatient work-up. Disposition decision was made weighing the risks and benefits of hospitalization versus outpatient treatment, the risk for further decompensation, and the patient's wishes. The patient was stable and requested discharge. Prior to discharge, my usual and customary return precautions were reviewed with the patient - this included follow-up instructions and reason to return to the emergency department if condition worsens, does not improve as expected, or other new concerns arise. HPI General Date/Time Provider Initiated Documentation: 08/16/19 11:07. Limitations to Documentation: no limitations. Information obtained by: patient and family. HPI Narrative: 59-year-old male with prior history of SVT, presents with chief complaint of palpitations. Symptoms started approximately 2 hours prior to arrival. Palpitations are severe. No modifiers. He has associated anxiety. Mild shortness of breath. Patient notes he has had multiple recent episodes of SVT requiring cardioversion here in the emergency department. He is scheduled to follow-up with cardiology later this week. He does continue to drink caffeinated beverages and notes that he has 2 coffees a day. Related Data Home Medications Medication Instructions Recorded Confirmed polyethylene glycol 3350 [Miralax] 1 cap PO PRN 11/29/13 08/16/19 gabapentin 300 mg capsule 300 mg PO BID 05/04/18 08/16/19 quetiapine 400 mg tablet 400 mg PO BID 05/04/18 08/16/19 diazepam [Valium] 5 mg PO TID PRN #14 tab 07/22/19 08/16/19 diltiazem HCl 120 mg PO BID #60 cap 08/16/19 Previous Rx's Medication Instructions Recorded diazepam [Valium] 5 mg PO TID PRN #14 tab 07/22/19 diltiazem HCl 120 mg PO BID #60 cap 08/16/19 Allergies Allergy/AdvReac Type Severity Reaction Status Date / Time codeine Allergy Mild Itching Verified 08/16/19 11:24 aspirin AdvReac Severe Nausea Verified 08/16/19 11:24 Interferons AdvReac Severe NAUSEA, Verified 08/16/19 11:24 WEIGHT LOSS General Stated Complaint: Palpitatns GLADYS: 2 Review of Systems All systems reviewed & are unremarkable except as noted in HPI and below Constitutional Constitutional: Denies fever(s) Cardiovascular Cardiovascular: Reports as per HPI and Reports dyspnea Respiratory Respiratory: Reports dyspnea PFSH Medical History Alcohol abuse Anxiety (Chronic) Back pain (Acute) Bipolar disorder Chronic back pain Colon cancer Hepatitis C HTN (hypertension) Legg-Perthes disease Post laminectomy syndrome (Chronic) Rectal bleeding (Acute) Sacroiliac dysfunction (Chronic) Spondylosis of lumbar region without myelopathy or radiculopathy (Chronic) Surgical History Colectomy (~2009) Sigmoid Resection Colonoscopy - MAC (09/28/18) Patient formerly followed by [facility]. Hx of rectal cancer. [place] 12/30/16 CD noted rectal lesion/rectal stenosis, path showed histological features of regeneration/repair. CD rec'd patient follow up in office in 6 mos. No f/up. 09/02/18 Dr Leggett patient has passed blood/clot in stool. mg 09/28/18 - [place] with Kathy Leon, rec's consult in 6 months with possible dilation. mg History of cystoscopy (Acute) Open Carpal Tunnel release (~2001) RIGHT removal of pain pump (11/19/16) Replacement of total knee joint bilateral knee reconstruction; x2 S/P total knee replacement (Acute) Sigmoidoscopy (11/26/16) Spinal Fusion (~1995) L5-S2 Total replacement of hip (~2006) RIGHT Family History Mother Neoplasm BRAIN Father No problems noted. Sister No problems noted. Sister No problems noted. Social History Smoking/Tobacco Use Status: Current every day Tobacco Type: cigarettes Counseling given: patient declined Alcohol Intake: never Drug use: Occasionally Substance use type: marijuana Pets and animals: Yes Pets and animals: cat(s) Duration: decline to answer Frequency: 3-4 times per week Jillian/Hoahaoism: No preference Special jillian needs: No Do you feel safe at home: Yes Do you feel safe in your relationship?: Yes Exam Const General: cooperative and anxious Orientation: alert and awake HENMT Mouth: moist mucous membranes Eyes Conjunctivae: normal conjunctivae Sclera: normal sclerae Neck Neck: trachea midline and supple Resp Auscultation: clear to auscultation bilaterally, no rales, no rhonchi and no wheezes Cardio Jugular venous pressure: no JVD Rate: tachycardic Rhythm: regular rhythm GI Palpation: soft, not firm, no guarding, no masses, not rigid and nontender Skin General skin exam: no rashes or lesions noted Neuro General: alert, awake, oriented x3 and tone normal Extrem General: no edema Psych Appearance: grossly normal Course Vital Signs Vital signs: Vital Signs Temperature 36.9 C 08/16/19 10:50 Pulse 158 H 08/16/19 10:50 Respiratory Rate 26 H 08/16/19 10:50 Blood Pressure 119/83 08/16/19 10:50 Pulse Oximetry 98 08/16/19 10:50 Temperature 36.9 C 08/16/19 10:50 Temperature Source Skin 08/16/19 10:50 Pulse 158 H 08/16/19 10:50 Respiratory Rate 26 H 08/16/19 10:50 Respiratory Effort 08/16/19 10:53 Blood Pressure 119/83 08/16/19 10:50 Blood Pressure Position Sitting 08/16/19 10:50 Pulse Oximetry 98 08/16/19 10:50 Oxygen Delivery Method Room Air 08/16/19 10:50 Oxygen Flow Rate 0 08/16/19 10:50 Procedures Other Description: Procedure: Cardioversion emergent Indication: Supraventricular tachycardia, shortness of breath Informed consent: Verbal Note: IV was established by nursing right AC. Adenosine 6 mg IV was administered right AC. Patient had brief pause with a few wide-complex beats and then returned to SVT. A second dose of adenosine 12 mg IV was administered. Patient had prolonged approximately 8-second asystolic pause and then started to have a narrow complex, regular rapid rhythm. Patient coughed and then converted to a sinus tachycardia. Complication: None Critical Care Time Critical Care Time Critical Care Time: Yes Total Critical Care Time: 45 Attestation: I spent greater than 45 minutes addressing this patient's immediate life threats and providing critical care including time spent with consultation and reassessment.
[2019-08-16 11:35] LABS: Abs Immature Grans 0.04 k/cumm (0.0-0.09); Absolute Basophil Count 0.03 k/cumm (0.0-0.2); Absolute Eosinophil Count 0.04 k/cumm (0.0-0.7); Absolute Lymphocyte Count 1.82 k/cumm (1.2-3.4); Absolute Monocyte Count 0.64 k/cumm (0.11-0.7); Absolute Neutrophil Count 4.01 k/cumm (1.2-6.7); Basophils % 0.5; Eosinophils % 0.6; HCT 47.9 % (40.0-50.0); HGB 15.6 g/dL (13.5-17.5); Immature Grans % 0.6 %; Lymphocytes % 27.7; Mean Corp. HGB Concentration 32.6 g/dL (32.0-36.0); Mean Corpuscular Hemoglobin 32.1 pg (27.0-33.0); Mean Corpuscular Volume 98.6 fL (80-95); Mean Platelet Volume 9.7 fL (8.0-11.0); Monocytes % 9.7; Neutrophils % 60.9; Platelet Count 267 x1000/uL (130-400); RBC 4.86 m/cumm (4.50-6.00); RBC Distribution Width 13.8 % (11.8-14.1); White Blood Cell Count 6.58 k/cumm (4.4-10.8)
[2019-08-16] MEDS: Lactated Ringers 1,000 ML 125 ML IV (11:38)
[2019-08-16 11:54] LABS: ALT 38 U/L (16-63); AST 27 U/L (15-37); Albumin 4.2 g/dL (3.4-5.0); Alkaline Phosphatase 92 U/L (46-116); Anion Gap 9.4 mmol/L (3-11); BUN 17 mg/dL (7-18); Bilirubin, Total 0.3 mg/dL (0.2-1.0); CO2 28.6 mmol/L (21.0-32.0); CREATININE 0.95 mg/dL (0.70-1.30); Calcium 8.8 mg/dL (8.5-10.1); Chloride 106 mmol/L (98-107); Glucose 140 mg/dL (74-106); Magnesium 2.1 mg/dL (1.8-2.4); Potassium 3.5 mmol/L (3.5-5.1); Sodium 144 mmol/L (136-145); Total Protein 8.5 g/dL (6.4-8.2)
[2019-08-16 12:39] LABS: TSH (W/Ref FT4) 2.52 uIU/mL (0.36-3.74)
[2019-08-16] MEDS: diazePAM 5 MG TAB PO (12:46)
[2019-08-16] MEDS: dilTIAZem CD 120 MG CAPCR PO (13:27)
== END 2019-08-16 13:52 | disposition home or self-care (01) ==
PROVIDERS: Emergency Provider Student in an Organized Health Care Education/Training Program; PCP Family Medicine
DX: R00.2 Palpitations (principal); I47.1 Supraventricular tachycardia; F41.9 Anxiety disorder, unspecified; I10 Essential (primary) hypertension
CPT/HCPCS: 36415; 80053; 93005; 96361; 96374; 99291; 83735; 84443; 85025; 93010; J0153

== ENCOUNTER 2019-08-18 08:12 | Emergency (ER) | payer MEDICARE, MEDICAID, SELFPAY ==
[2019-08-18] VITALS (28 sets, daily range): BP systolic 110–128; BP diastolic 45–91; PULSE 101–127; RESP 14–29; TEMP 36.8; O2SAT 92–100
--- NOTE | 2019-08-18 08:28 | ED.GENADUL_ITS ---
Discharge Plan Disposition Patient Disposition: HOME Condition: Stable Discharge Details Chief Complaint: Chest Pain Clinical Impression: Heart palpitations Primary Care Provider: Ke Mcconnell ED Provider: Rhiannon Haque Home Meds and New Rx's Prescriptions: Continued quetiapine [Seroquel] 400 mg tablet 400 mg PO BID RF: 0 gabapentin 300 mg capsule 300 mg PO BID RF: 0 polyethylene glycol 3350 [Miralax] 527 GM powder 1 cap PO PRN RF: 0 diltiazem HCl 120 mg capsule,extended release 12 hr 120 mg PO BID Qty: 60 RF: 0 diazepam [Valium] 5 mg tablet 5 mg PO TID PRN (Reason: anxiety) Qty: 14 RF: 0 Discharge Instructions Instructions: Supraventricular Tachycardia (ED), Palpitations (ED), How to Use an Incentive Spirometer (ED) Additional Instructions: Keep your upcoming appointment tomorrow with Dr. Yovani JENKINS cardiology. Keep taking your prescribed dose of diltiazem as instructed. Return immediately to the ED for any chest pain, worsening tachycardia, lightheadedness, worsening shortness of breath or any concerns. Try to cough and deep breathe and use incentive spirometer as instructed. Follow up with primary care provider in 3-5 days. Return to ED sooner if any worsening or concerns. Referrals: Ke Mcconnell [Primary Care Provider] - Medical Decision Making 59 year old male presents for tachycardia. Patient reports feeling like heart was racing Was seen here 08-16-19 in SVT and given Adenosine. 12mg and 6mg and discharged on Diltiazem. Upon presentation today, he does not report chest pain, does havesome mild SOB. No fever, no cough. Initial workup ordered including serial Troponin, CXR and labs. EKG shows [id number], [place] 142, QT/QTC 312/450 which is largely unchanged from EKG on 07-22-19. No ischemic changes noted. EKG reviewed by MD Boykin. 1036: Discussed chest x-ray with Dr. Monroe radiology, he has atelectasis versus pleural effusion to his left lower quadrant and a linear possible atelectasis in the right lower quadrant. Will do CT to rule out PE. EXAM: XR CHEST 2V PA LATERAL CLINICAL HISTORY: Palpitations COMPARISON: XR PORTABLE CHEST AP from 07/22/2019 CT CHEST PE CTA from 07/22/2019 FINDINGS: Heart is not enlarged. There are new radiodensities in the lung bases bilaterally, these were not present on previous film of July 22. These may represent areas of atelectasis and/or consolidation. Possible fluid in right inner lobar fissure. No pleural effusion seen posteriorly on the lateral view. IMPRESSION: Possible areas of bibasilar consolidation and/or atelectasis. Suspect new pleural effusion as well. Appropriate follow-up studies requested. Ordered By: Rhiannon Haque CC: Dictated By: Prakash Monroe M.D. 08/18/19 1005 Transcribed By: Prakash Monroe 1201: Repeat EKG unchanged from previous. Rate 120 [place] interval 178 QT 314/[address] Boykin reviewed. Awaiting CT chest PE protocol to rule out PE. 1222: CT chest is negative for PE does demonstrate the atelectasis in the right middle lobe and left lower lobe. Significant CHF noted on chest CT. 1229: Patient's heart rate is 108 sinus tachycardia. He has not had any more episodes of SVT while in department. No chest pain right now. Page put out to Dr. Malagon with cardiology just to touch base, patient does have an appointment with him in the office tomorrow instructed patient to keep that appointment.Spoke with Dr. Malagon discussed patient case, vital signs, and labs and results of imaging, he agrees with plan to discharge and will discuss possible ablation in office tomorrow. Plan to Discharge and stay on current Dil tiazem dose at this time. Strict return instructions given to patient to return if any worsening shortness of breath, chest pain, dizziness or weakness or lightheadedness, patient verbalized understanding. Incentive spirometer ordered, RT at bedside for patient teaching. Also instructed patient to cough and deep breathe. Verbalized understanding. ECG Data Attestation: I personally reviewed and interpreted this ECG (s) as follows: Prior ECG tracings: available for review HPI General Mode of arrival: wheelchair . Date/Time Provider Initiated Documentation: 08/18/19 08:16 . Limitations to Documentation: no limitations . Information obtained by: patient . History of Present Illness 59 year old M presents to the emergency department with the chief complaint of Palpitations, described as moderate, with intensity rated at 5. and is localized to the chest (No chest pain). Patient reports no radiation. Patient started experiencing this hour(s) (3) and it has been constant. No relieving factors improve symptom(s), Movement worsens symptoms . Patient notes shortness of breath; denies confusion, chest pain, cough, fever/chills, nausea/vomiting, syncope and weakness. Patient did receive the following treatments prior to arrival, none Related Data Home Medications Medication Instructions Recorded Confirmed polyethylene glycol 3350 [Miralax] 1 cap PO PRN 11/29/13 08/18/19 gabapentin 300 mg capsule 300 mg PO BID 05/04/18 08/18/19 quetiapine 400 mg tablet 400 mg PO BID 05/04/18 08/18/19 diazepam [Valium] 5 mg PO TID PRN #14 tab 07/22/19 08/18/19 diltiazem HCl 120 mg PO BID #60 cap 08/16/19 08/18/19 Previous Rx's Medication Instructions Recorded diazepam [Valium] 5 mg PO TID PRN #14 tab 07/22/19 diltiazem HCl 120 mg PO BID #60 cap 08/16/19 Allergies Allergy/AdvReac Type Severity Reaction Status Date / Time codeine Allergy Mild Itching Verified 08/18/19 08:43 aspirin AdvReac Severe Nausea Verified 08/18/19 08:43 Interferons AdvReac Severe NAUSEA, Verified 08/18/19 08:43 WEIGHT LOSS General GLADYS: 2 Review of Systems All systems reviewed & are unremarkable except as noted in HPI and below Constitutional Constitutional: Denies snoring ENT Ears, Nose, Mouth, and Throat: Denies vertigo and Reports dizziness Cardiovascular Cardiovascular: Reports as per HPI, Reports rapid heart rate, Denies pedal edema, Denies leg ulcers, Denies leg edema and Reports dyspnea on exertion Respiratory Respiratory: Reports dyspnea on exertion, Denies snoring and Denies wheezing Gastrointestinal Gastrointestinal: Reports as per HPI, Denies nausea, Denies vomiting and Denies hematemesis Neurologic Neurologic: Reports system reviewed and no additional complaints, except as docu, Denies confusion, Denies vertigo and Reports dizziness Psychiatric Psychiatric: Denies confusion Allergic/Immunologic Allergic/Immunologic: Denies wheezing REPLACED BY [facility] Medical History Alcohol abuse Anxiety (Chronic) Back pain (Acute) Bipolar disorder Chronic back pain Colon cancer Hepatitis C HTN (hypertension) Legg-Perthes disease Post laminectomy syndrome (Chronic) Rectal bleeding (Acute) Sacroiliac dysfunction (Chronic) Spondylosis of lumbar region without myelopathy or radiculopathy (Chronic) Surgical History Colectomy (~2009) Sigmoid Resection Colonoscopy - MAC (09/28/18) Patient formerly followed by [facility]. Hx of rectal cancer. [facility] 12/30/16 CD noted rectal lesion/rectal stenosis, path showed histological features of regeneration/repair. CD rec'd patient follow up in office in 6 mos. No f/up. 09/02/18 Dr Leggett patient has passed blood/clot in stool. mg 09/28/18 - [facility] with Kathy Leon, rec's consult in 6 months with possible dilation. mg History of cystoscopy (Acute) Open Carpal Tunnel release (~2001) RIGHT removal of pain pump (11/19/16) Replacement of total knee joint bilateral knee reconstruction; x2 S/P total knee replacement (Acute) Sigmoidoscopy (11/26/16) Spinal Fusion (~1995) L5-S2 Total replacement of hip (~2006) RIGHT Family History Mother Neoplasm BRAIN Father No problems noted. Sister No problems noted. Sister No problems noted. Social History Smoking/Tobacco Use Status: Current every day Tobacco Type: cigarettes Counseling given: patient declined Alcohol Intake: never Drug use: Occasionally Substance use type: marijuana Pets and animals: Yes Pets and animals: cat(s) Duration: decline to answer Frequency: 3-4 times per week Jillian/Sikhism: No preference Special jillian needs: No Do you feel safe at home: Yes Do you feel safe in your relationship?: Yes Exam Const General: cooperative, healthy appearing, comfortable, no acute distress, well developed and not diaphoretic Nutritional Appearance: average body habitus Orientation: alert, awake and oriented x3 Limitations: mental status not altered Resp Effort & Inspection: normal respiratory effort and able to speak in complete sentences Auscultation: clear to auscultation bilaterally, no rales, no rhonchi and no wh eezes Cardio Rate: tachycardic Rhythm: regular rhythm Heart Sounds: S1 normal and S2 normal
[2019-08-18 09:38] LABS: Abs Immature Grans 0.03 k/cumm (0.0-0.09); Absolute Basophil Count 0.01 k/cumm (0.0-0.2); Absolute Eosinophil Count 0.03 k/cumm (0.0-0.7); Absolute Lymphocyte Count 0.99 k/cumm (1.2-3.4); Absolute Monocyte Count 0.46 k/cumm (0.11-0.7); Absolute Neutrophil Count 3.62 k/cumm (1.2-6.7); Basophils % 0.2; Eosinophils % 0.6; HCT 43.9 % (40.0-50.0); HGB 14.7 g/dL (13.5-17.5); Immature Grans % 0.6 %; Lymphocytes % 19.3; Mean Corp. HGB Concentration 33.5 g/dL (32.0-36.0); Mean Corpuscular Hemoglobin 32.7 pg (27.0-33.0); Mean Corpuscular Volume 97.6 fL (80-95); Mean Platelet Volume 9.1 fL (8.0-11.0); Monocytes % 8.9; Neutrophils % 70.4; Platelet Count 216 x1000/uL (130-400); RBC Distribution Width 13.7 % (11.8-14.1); White Blood Cell Count 5.14 k/cumm (4.4-10.8)
--- NOTE | 2019-08-18 09:45 | DI.RAD_ITS ---
EXAM: XR CHEST 2V PA LATERAL CLINICAL HISTORY: Palpitations COMPARISON: XR PORTABLE CHEST AP from 07/22/2019 CT CHEST PE CTA from 07/22/2019 FINDINGS: Heart is not enlarged. There are new radiodensities in the lung bases bilaterally, these were not pr esent on previous film of July 22. These may represent areas of atelectasis and/or consolidatio n. Possible fluid in right inner lobar fissure. No pleural effusion seen posteriorly on the lateral view. IMPRESSION: Possible areas of bibasilar consolidation and/or atelectasis. Suspect new pleural effusion as well. Appropriate follow-up studies requested.
[2019-08-18 09:56] LABS: ALT 31 U/L (16-63); AST 18 U/L (15-37); Albumin 3.9 g/dL (3.4-5.0); Alkaline Phosphatase 88 U/L (46-116); Anion Gap 9.9 mmol/L (3-11); BUN 11 mg/dL (7-18); Bilirubin, Total 0.3 mg/dL (0.2-1.0); CO2 28.1 mmol/L (21.0-32.0); CREATININE 0.86 mg/dL (0.70-1.30); Calcium 9.1 mg/dL (8.5-10.1); Chloride 108 mmol/L (98-107); Glucose 122 mg/dL (74-106); Potassium 3.8 mmol/L (3.5-5.1); Sodium 146 mmol/L (136-145)
[2019-08-18 09:59] LABS: Troponin I < 0.05 ng/Ml (<0.06)
[2019-08-18] MEDS: diazePAM 5 MG TAB PO (11:09)
[2019-08-18 11:35] LABS: Troponin I < 0.05 ng/Ml (<0.06)
--- NOTE | 2019-08-18 12:10 | DI.CT_ITS ---
EXAM: CT CHEST PE CTA CLINICAL HISTORY: Left lower quadrant atelectasis, TECHNIQUE: CT angiography of the chest was performed with bolus infusion of 100 cc of Omnipaque 350. Injection was of sub optimal rate. Axial CT angiography was performed with multi-slice acquisition and multi-planar and/or 3D reconstruc tions. COMPARISON: CT CHEST PE CTA from 07/22/2019 FINDINGS: There is fairly good opacification of pulmonary arterial circulation with some inhomogeneity of mixin g apparent. No focal pulmonary embolus identified. There are areas of atelectasis in the right midd le lobe and the lingula. No focal consolidation. Severe COPD with diffuse centrilobular and subpleu ral emphysema noted. No pleural effusion. No pneumothorax. Tracheobronchial tree appears intact. No mediastinal or hilar adenopathy. Thoracic aorta is of normal diameter and major branches appear i ntact. No dissection seen. Images obtained through the upper abdomen show unremarkable appearance of visualized portions of live r, spleen, adrenals and right kidney. Cholelithiasis versus gallbladder sludge noted. IMPRESSION: Areas of atelectasis noted in right middle lobe and lingula in a patient with severe COPD. No eviden ce of pulmonary embolic disease.
[2019-08-18] MEDS: Omnipaque 350 MG/ML 100 ML BTL IJ (12:20)
== END 2019-08-18 12:52 | disposition home or self-care (01) ==
PROVIDERS: Emergency Provider Registered Nurse Emergency; PCP Family Medicine
DX: R00.2 Palpitations (principal); I10 Essential (primary) hypertension
CPT/HCPCS: 36415; 71275; 80053; 93005; 99285; 71046; 83735; 84484; 85025; 93010; 99284; J3490

== ENCOUNTER 2019-08-23 00:41 | Outpatient (CLI) | payer MEDICARE, MEDICAID, SELFPAY ==
--- NOTE | 2019-08-23 07:30 | DI.US_ITS ---
APPROVED REPORT EXAM: Comprehensive 2D, Doppler, and color-flow Echocardiogram Patient Location: Out-Patient Senior Product Marketing Manager: Mary Lou Hoyos RDCS (AE) Rhythm: Tachycardia Indications: SVT i47.1 Conclusion Left Ventricle : The left ventricle is normal size. Left ventricular systolic function is normal. Th ere is normal left ventricular wall thickness. There is normal LV segmental wall motion. The left ve ntricular diastolic function is normal. LVEF is estimated to be 60-65%. Right Ventricle : The right ventricle appears normal in size. The right ventricular systolic functi on is normal. Atria : The left atrium size is normal. The right atrium size is normal. Valves: There are no significant valvular lesions. Great Vessels : IVC is normal in size and collapses >50% with inspiration. Please see the report below for additional details. There is no prior echocardiogram available for comparison. Wall motion Left Ventricle The left ventricle is normal size. Left ventricular systolic function is normal. There is normal left ventricular wall thickness. There is normal LV segmental wall motion. The left ventricular diastolic function is normal. LVEF is estimated to be 60-65%. Right Ventricle The right ventricle appears normal in size. The right ventricular systolic function is normal. Atria The left atrium size is normal. The right atrium size is normal. Aortic Valve Aortic valve is trileaflet. Aortic valve leaflets are mildly thickened. There is no aortic valvular s tenosis. Trace aortic regurgitation. Mitral Valve The mitral valve is normal in structure. No evidence of mitral valve stenosis. Trivail to mild mitral regurgitation. Tricuspid Valve Tricuspid valve is not well visualized. Mild tricuspid regurgitation. Great Vessels The aortic root is normal in size. The ascending aorta size is normal. IVC is normal in size and rene apses >50% with inspiration. Pericardium There is no pericardial effusion. 2D Dimensions IVSd 0.95 cm M: 0.6-1.2 LV EDV A2C 47.3 mL PWd 0.90 cm M: 0.6 - 1.2 LV EDV A4C 71.3 mL LVDd 4.40 cm M: 4.2 - 5.8 LA Volume Index Biplane 20.5 mL/m2 LVDs 2.85 cm M: 2.5 - 4.0 LA Area A4C 14.79 cm2 Aortic Root 3.30 cm M: 3.1 - 3.7 LA Area A2C 14.02 cm2 RA Area A4C 13.36 cm2 EF AP4 63.1 % LVOT 2.15 cm (M/F) 1.5-2.5 EF AP2 64.5 % Ascending Aorta 3.37 cm M: 2.6 - 3.4 EF BP 63.5 % LVEF (Teich) 64.3 % IVC 1.23 cm LVEF (Yanez's) 63.54 % M: 52 - 72 TAPSE 1.68 cm (M/F) <1.7 LV Volume 45.02 mL M: 62 - 150 LV Volume Index 24.73 mL/m2 M: 34 - 74 FS 34.90 % LV Diastology MV E' medial 0.062 (>0.07 m/s) E/A Ratio 0.6 LV E/e MED 8.80 (<14) TR Peak Velocity 2.23 m/s MV E' lateral 0.084 (>0.1 m/s) LV E/e LAT 6.45 (<14) LA vol/ BSA A2C s A-L 19.0 mL/m2 LA vol/ BSA A4C s A-L 21.7 mL/m2 Aortic Valve LVOT Area 3.74 cm2 AoV Area Vmax 2.59 cm2 LVOT Vmax 1.09 m/s AoV Area/ BSA (Vmax) 1.42 cm2/m2 LVOT Mean Boris. 0.83 m/s AMARILIS Mean Boris. 2.87 cm2 LVOT Peak Gr. 4.8 mmHg AMARILIS Mean Boris. Index 1.57 cm2/m2 LVOT Mean Gr. 3.0 mmHg LVOT VTI 0.155 m AoV Vmax 1.57 (0.5-1.3 m/s) AoV Mean Boris. 1.08 m/s AoV Peak Grad 9.9 mmHg LVOT SV 57.77 mL AoV Mean Grad 5.2 (<5 mmHg) AoV VTI 0.233 (0.18-0.25 m) AoV Area VTI 2.48 (2.5-4.5 cm2) AoV Area/ BSA (VTI) 1.36 cm/m2 Mitral Valve MV E Max Boris. 0.55 (0.4-1.3 m/s) MVA VTI 4.96 (4.0-6.0 cm2) MV A Velocity 0.85 (0.4-1.3 m/s) RVOT Peak Gr. 2.01 mmHg E/A Ratio 0.62 RVOT Mean Gr. 1.15 mmHg PV Peak Velocity 0.95 (0.5-1.5 m/s) RVOT Peak Boris. 0.71 m/s RVOT VTI 0.100 m Tricuspid Valve TR P. Gradient 19.9 mmHg TV Regurg Vmax 2.23 m/s RAP Estimate 3.00 mmHg RVSP 22.9 mmHg
== END 2019-08-23 01:01 ==
PROVIDERS: PCP Family Medicine; Visit Provider Student in an Organized Health Care Education/Training Program
DX: I47.1 Supraventricular tachycardia (principal); I10 Essential (primary) hypertension; R00.2 Palpitations
CPT/HCPCS: 93306

== ENCOUNTER → 2019-08-25 12:24 | Outpatient (BNVA) | payer MEDICARE, MEDICAID, SELFPAY | PROVIDERS: PCP Family Medicine; Referring Provider Family Medicine; Visit Provider Internal Medicine Cardiovascular Disease | DX: I47.1 Supraventricular tachycardia (principal); I10 Essential (primary) hypertension | CPT/HCPCS: 99204; 99215 ==

== ENCOUNTER → 2019-09-14 13:39 | Outpatient (BNVA) | payer MEDICARE, MEDICAID, SELFPAY | PROVIDERS: PCP Family Medicine; Referring Provider Family Medicine; Visit Provider Internal Medicine Cardiovascular Disease | DX: R69 Illness, unspecified (principal) ==

== ENCOUNTER 2019-09-14 14:09 | Outpatient (CLI) | payer MEDICARE, MEDICAID, SELFPAY | END 2019-09-14 14:29 | PROVIDERS: PCP Family Medicine; Visit Provider Internal Medicine Cardiovascular Disease | DX: I47.1 Supraventricular tachycardia (principal) | CPT/HCPCS: 99214; 99245; 93005; 93010 ==

== ENCOUNTER → 2019-12-09 14:55 | Outpatient (BNVA) | payer MEDICARE, MEDICAID, SELFPAY | PROVIDERS: PCP Family Medicine; Referring Provider Family Medicine; Visit Provider Internal Medicine Cardiovascular Disease | DX: I47.1 Supraventricular tachycardia (principal); I10 Essential (primary) hypertension | CPT/HCPCS: 99212; 99442 ==

== ENCOUNTER → 2020-06-25 12:53 | Outpatient (BNVA) | payer MEDICARE, MEDICAID, SELFPAY | PROVIDERS: PCP Family Medicine; Referring Provider Family Medicine; Visit Provider Internal Medicine Cardiovascular Disease | DX: I47.1 Supraventricular tachycardia (principal); F41.9 Anxiety disorder, unspecified; Z86.79 Personal history of other diseases of the circulatory system; I10 Essential (primary) hypertension | CPT/HCPCS: 99442; 99213 ==

== ENCOUNTER 2020-08-04 07:38 | Emergency (ER) | payer MEDICARE, MEDICAID, SELFPAY ==
[2020-08-04] VITALS (28 sets, daily range): BP systolic 108–126; BP diastolic 68–82; PULSE 92–134; RESP 10–31; TEMP 36.5–36.7; O2SAT 91–99
--- NOTE | 2020-08-04 07:45 | RT.EKG_ITS ---
APPROVED REPORT Exam: Resting ECG Patient Location: E HR:127 bpm ECG Measurements Heart Rate 127 AXIS SC 165 P 74 QRSd 104 QRS 153 QT 305 T 17 QTc 444 Conclusion Sinus tachycardia...rate> 99 Right axis deviation...QRS axis ( 15,721)
--- NOTE | 2020-08-04 08:00 | ED.GENADUL_ITS ---
Discharge Plan Disposition Patient Disposition: HOME Condition: Fair Discharge Details Clinical Impression: Colitis, Acute urinary retention, Blood glucose elevated, Dehydration, Diarrhea, BRBPR (bright red blood per rectum) Primary Care Provider: Ke Mcconnell ED Provider: Yessenia Willett Home Meds and New Rx's Prescriptions: Continued quetiapine [Seroquel] 400 mg tablet 400 mg PO BID RF: 0 gabapentin 300 mg capsule 300 mg PO BID RF: 0 polyethylene glycol 3350 [Miralax] 527 GM powder 1 cap PO PRN RF: 0 diazepam [Valium] 5 mg tablet 5 mg PO TID PRN (Reason: anxiety) Qty: 14 RF: 0 Discharge Instructions Instructions: Urinary Retention in Men (ED), Clear Liquid Diet (ED), Colitis (ED) Additional Instructions: Please encourage water intake. Follow the clear liquid diet as outlined in the attached documentation for the 48 hours. Please avoid that liquids. Your CT scan showed colitis as we discussed. You will need follow-up with general surgery. Please call tomorrow to schedule follow-up. Number listed below. He also had urinary retention while here. You have opted to have the catheter removed. Please return if you have any recurrent signs of retention such as difficulty urinating. Please call urology Thursday to schedule follow-up appointment. If you develop fever/chills, increased any pain, vomiting, inability stay hydrated or other new/worsening symptoms please seek care urgently once again. Referrals: Willie Espinoza MD [ [facility] STAFF PHYSICIAN] - Kathy Leon DO [OSTEOPATHIC DOCTOR] - Ke Mcconnell [Primary Care Provider] - Medical Decision Making Patient is a pleasant 60-year-old gentleman presenting today with chief complaint of rectal bleeding. He reports that yesterday around noon he began having some left lower quadrant cramping. States that shortly after the onset of this cramping sensation, he began having watery diarrhea. Reports that he had 5-6 bowel movements yesterday afternoon. He reports that after the second or third bowel movement the left lower quadrant cramping improved. He denies any blood in his stool at that time. Is otherwise feeling well. Took Imodium last night and did not have any bowel movements throughout the course of the evening. He states that he woke up this morning, had 1 watery bowel movement and noted bright red blood in the toilet. Patient does have a history of colon cancer which was resected 8 years ago and treated with radiation and chemotherapy. Subsequently, the patient has had multiple colonoscopies. The last of which was in 2019. At that time, there were scattered areas of diverticulum but no evidence of recurrent disease. Patient has also had to have strictures associated with his resection dilated historically. Of note, the patient reports that prior to yesterday's diarrhea, he had been feeling weak the caliber of his stool has been changing and that he would likely need a repeat dilatation. Had plan to contact general surgery this week to discuss this further. He denies any shortness of breath, chest pain, lightheadedness. He denies any recent travel. No recent antibiotics. On exam patient appears dehydrated. He is tachycardic with heart rate in the 120s at the time of my assessment. Patient reports that he has had tachycardia historically. States that he used to have issues with SVT but had an ablation approximately 6 months ago with no subsequent runs of SVT. States he does not feel symptomatically he did historically with the T. Abdomen is soft and nontender. He does have a enlarged area of scar tissue on the right lower quadrant. Patient reports that this is normal for him. He reports he did have a pump in this area but this was subsequently removed. She has no focal tenderness, no peritoneal findings. Plan to hydrate the patient. Will obtain CT scan based on patient's history initial left lower quadrant pain. Past medical history pertinent for SVT, rectal bleeding, anxiety, rectal stricture, history of tobacco and alcohol use, fibromyalgia, primary malignant neoplasm of rectum, hepatitis C. EKG was obtained and reviewed by Dr. Christie. Patient is in sinus tach cardia. Rate 127. No acute ischemic changes noted. Labs reviewed. No leukocytosis. Stable H&H. Coags are normal. Depakote elevated at 12. Glucose. Elevated to 70. Patient reports believes he removed all sugar from his diet. This may be associated with stress state. Alk phos is elevated at 155, patient has been elevated with this historically. Troponin is within normal limits. TSH within normal limits. FINDINGS: Tubes, catheters and devices: Intrathecal catheter evident. Mediastinal space: Small hiatal hernia. Liver: Normal. No mass. Gallbladder and bile ducts: Cholelithiasis. Pancreas: Normal. No ductal dilation. Spleen: Normal. No splenomegaly. Adrenal glands: Normal. No mass. Kidneys and ureters: 1.6 cm cortical renal cysts midpole left kidney and superior pole right kidney, both simple in appearance. No hydronephrosis. Stomach and bowel: Prominent wall thickening with mild adjacent inflammatory changes from the splenic flexure to the rectum. Nonspecific colitis, may be infectious, inflammatory, or possibly ischemic. Proximal LES appears patent. Additional workup necessary. No bowel obstruction. Appendix: No evidence of appendicitis. Intraperitoneal space: Unremarkable. No free air. No significant fluid collection. Vasculature: Unremarkable. No abdominal aortic aneurysm. Lymph nodes: Unremarkable. No enlarged lymph nodes. Urinary bladder: Unremarkable as visualized. Reproductive: Unremarkable as visualized. Bones/joints: Right hip prosthesis. Soft tissues: Unremarkable. IMPRESSION: 1. Prominent wall thickening with mild adjacent inflammatory changes from the splenic flexure to the rectum. Nonspecific colitis, may be infectious, inflammatory, or possibly ischemic. Proximal LES appears patent. Additional workup necessary. 2. Cholelithiasis. 3. Small hiatal hernia. Patient was noted to have an enlarged bladder on imaging. He did attempt to urinate several times unable to do so. Bladder scanner showed almost 600 cc of urine. States that he has had to have a Jacobo historically and was seen by Dr. Espinoza. Will place jacobo the patient today. Jacobo placed without difficulty, close to 1L out. UA WNL Discussed findings with the patient. It approximately 4 hours after eating if the patient begins having symptoms yesterday. She did not have any peritoneal signs, no pain with exam. Does not have risk factors suggestive of ischemic pathology. Will consult with general surgery. Consulted Dr. Serrano with general surgery. He advised that the patient could indeed have ischemic bowel with history of small vessel disease. He advised to self resolved and that conservative management would be appropriate. He advised clear liquids for the next 48 hours. He did not advise patient use antibiotics at this point. He recommended that patient call Thursday to schedule office follow-up. Encourage the patient come back with any new or worsening symptoms. He did not feel the urinary retention could be linked with colitis. I discussed these findings with the patient. We did discuss his diet more in depth. Patient tends to eat cakes in the morning for breakfast. This is likely the cause of his elevated glucose. He is able to tolerate p.o. well. Dietary counseling was discussed. I also discussed the recommendations with Dr. Serrano. Patient wants Jacobo removed. He states that typically he urinates without difficulty. He has only had had this once before. The prefer removal of the Jacobo and return if he has recurrent symptoms. I did encourage close follow-up with urology as well as general surgery. He will call both offices on Thursday to schedule follow-up appointment. Also recommend follow-up with his primary care to discuss his elevated glucose. Strict return precautions were discussed. All his questions and concerns were addressed and he is agreement this plan. HPI General Mode of arrival: ambulatory . Date/Time Provider Initiated Documentation: 08/04/20 07:59 . Limitations to Documentation: no limitations . Information obtained by: patient, RN notes reviewed and old records reviewed (reviewed general surgery notes) . History of Present Illness 60 year old M presents to the emergency department with the chief complaint of rectal bleeding and LLQ pain, described as moderate and similar to prior episodes, with intensity rated at 1 (LLQ much improved after several BM). Quality is described as other (cramping), and is localized to the abdomen. Patient reports no radiation. Patient started experiencing this day(s) (1) and it has been constant. other things that improve symptom(s), (pain improves after BM) No exacerbating factors reported . Patient notes denies chest pain, cough, fever/chills, headaches, loss of appetite, nausea/vomiting, shortness of breath and weakness. Patient did receive the following treatments prior to arrival, other (immodium) Related Data Home Medications Medication Instructions Recorded Confirmed polyethylene glycol 3350 [Miralax] 1 cap PO PRN 11/29/13 08/04/20 gabapentin 300 mg capsule 300 mg PO BID 05/04/18 08/04/20 quetiapine 400 mg tablet 400 mg PO BID 05/04/18 08/04/20 diazepam [Valium] 5 mg PO TID PRN #14 tab 07/22/19 08/04/20 Previous Rx's Medication Instructions Recorded diazepam [Valium] 5 mg PO TID PRN #14 tab 07/22/19 Allergies Allergy/AdvReac Type Severity Reaction Status Date / Time codeine Allergy Mild Itching Verified 08/04/20 07:51 aspirin AdvReac Severe Nausea Verified 08/04/20 07:51 Interferons AdvReac Severe NAUSEA, Verified 08/04/20 07:51 WEIGHT LOSS General Stated Complaint: GI Bleed GLADYS: 2 Review of Systems Constitutional Constitutional: Reports as per HPI, Denies chills, Denies fatigue, Denies fever(s) and Denies headache(s) ENT Ears, Nose, Mouth, and Throat: Denies headache(s) Cardiovascular Cardiovascular: Reports as per HPI, Denies chest pain and Denies dyspnea Respiratory Respiratory: Reports as per HPI, Denies cough and Denies dyspnea Gastrointestinal Gastrointestinal: Reports as per HPI Genitourinary Genitourinary: Reports as per HPI, Denies hematuria and Denies dysuria Musculoskeletal Musculoskeletal: Reports as per HPI and Denies back pain Integumentary/Breasts Skin/Breast: Reports as per HPI and Denies rash Neurologic Neurologic: Reports as per HPI and Denies headache(s) Endocrine Endocrine: Denies fatigue Hematologic/Lymphatic Hematologic/Lymphatic: Denies easy bleeding and Denies easy bruising [facility] Medical History (Updated 08/04/20 @ 10:40 by JASBIR Clement) Alcohol abuse Anxiety Back pain Bipolar disorder Chronic back pain Colon cancer Hepatitis C HTN (hypertension) Legg-Perthes disease Post laminectomy syndrome Rectal bleeding Sacroiliac dysfunction Spondylosis of lumbar region without myelopathy or radiculopathy Surgical History Colectomy (~2009) Sigmoid Resection Colonoscopy - [facility] (09/28/18) Patient formerly followed by [facility]. Hx of rectal cancer. [place] 12/30/16 CD noted rectal lesion/rectal stenosis, path showed histological features of regeneration/repair. CD rec'd patient follow up in office in 6 mos. No f/up. 09/02/18 Dr Leggett patient has passed blood/clot in stool. mg 09/28/18 - [place] with Kathy Leon, rec's consult in 6 months with possible dilation. mg History of cystoscopy Open Carpal Tunnel release (~2001) RIGHT removal of pain pump (11/19/16) Replacement of total knee joint bilateral knee reconstruction; x2 S/P total knee replacement Sigmoidoscopy (11/26/16) Spinal Fusion (~1995) L5-S2 Total replacement of hip (~2006) RIGHT Family History Mother Neoplasm BRAIN Father No problems noted. Sister No problems noted. Sister No problems noted. Social History Smoking/Tobacco Use Status: Current every day Tobacco Type: cigarettes Counseling given: patient declined Smoking risk assessment performed?: Yes Alcohol Intake: never Drug use: Daily Substance use type: marijuana Pets and animals: Yes Pets and animals: cat(s) What type of physical activity do you participate in: other Details: stationary bike and stretching Duration: decline to answer Frequency: 3-4 times per week Jillian/Christianity: No preference Special jillian needs: No Do you feel safe at home: Yes Do you feel safe in your relationship?: Yes Exam Const General: cooperative, healthy appearing, comfortable, no acute distress and well developed Nutritional Appearance: average body habitus and well nourished Orientation: alert and awake HENMT Head: normal to inspection Mouth: moist mucous membranes Resp Effort & Inspection: normal respiratory effort, able to speak in complete sentences and no respiratory distress Auscultation: clear to auscultation bilaterally, no rales, no rhonchi and no wheezes Cardio Rate: tachycardic Rhythm: regular rhythm Heart Sounds: S1 normal and S2 normal GI Inspection: non-distended and scar (multiple post surgical scars) Palpation: soft, no hepatosplenomegaly, not firm, no guarding, mass (RLQ scar has notable firmness, patient states normal from scar tissue), no pulsatile masses, not rigid and nontender Percussion: normal to percussion Auscultation: normal bowel sounds Rectal Exam: visual inspection normal, normal sphincter tone, heme positive stool, No hemorrhoids, No laceration, No lesions and No tenderness Back/Spine/Pelvis Back: no CVA tenderness Skin General skin exam: no rashes or lesions noted Trauma: no lacerations or abrasions Neuro General: patient alert and patient awake Cognition: normal cognition Speech: speech normal Gait: normal gait Psych Appearance: grossly normal and well kempt Mental Status: mental status grossly normal Speech and Movement: speech and movement normal Course Vital Signs Vital signs: Vital Signs Temperature 36.5 C 08/04/20 07:44 Pulse 134 H 08/04/20 07:44 Respiratory Rate 16 08/04/20 07:44 Blood Pressure 121/81 08/04/20 07:44 Pulse Oximetry 99 08/04/20 07:44 Temperature 36.5 C 08/04/20 07:44 Temperature Source Skin 08/04/20 07:44 Pulse 134 H 08/04/20 07:44 Respiratory Rate 16 08/04/20 07:44 Blood Pressure 121/81 08/04/20 07:44 Pulse Oximetry 99 08/04/20 07:44 Oxygen Delivery Method Room Air 08/04/20 07:44 Oxygen Flow Rate 0 08/04/20 07:44 Pain Level 1 08/04/20 07:44
--- NOTE | 2020-08-04 08:00 | DI.CT_ITS ---
EXAM: CT ABDOMEN PELVIS W CLINICAL HISTORY: LLQ pain with rectal bleeding. TECHNIQUE: Imaging Protocol: Axial computed tomography images with coronal and sagittal reformatted images were created and reviewed CONTRAST MATERIAL: Intravenous: Omnipaque 100cc Oral: None COMPARISON: CT CT CHEST PE CTA from 08/18/2019 FINDINGS: VISUALIZED LUNG BASES: There is atelectasis in the inferior lingular segment, similar to previous. T here are no pleural effusions. ABDOMEN: There is an intrathecal catheter which exits the spinal column and comes are on the right flank where it is located in the and anterior subcutaneous fat over the right anterior abdominal wall and there is small amount of fluid around it is distal aspect in the subcutaneous tissues, this of questionable significance. There has been are lower lumbar surgery and the appearance of the right iliac bone is donor site. There is also a right hip prosthesis. There is no ascites. Small hiatal hernia is noted. LIVER: There are no obvious focal hepatic lesions evident. No dilated intrahepatic ducts. GALLBLADDER/BILIARY: Layering sludge or gallstones. Gallbladder wall does not appear edematous. The CBD diameter is slightly prominent, measuring 8 millimeters above the pancreatic head and 7 millimet ers within the pancreatic head. No obvious calculi seen lower CBD and no evidence of pancreatic head mass. CBD is not dilated. PANCREAS: Pancreas appears somewhat atrophic. There is no obvious pancreatic mass and the pancreatic duct is not dilated. SPLEEN: Spleen is not enlarged. No splenic lesions. A small splenule is noted in the hilum region. The splenic and portal veins are patent. Splenic and portal veins are patent. ADRENALS: There are no significant adrenal masses. KIDNEYS:There is a 1.6 centimeter cyst in the medial aspect of the right kidney and a smaller cyst is noted off the lateral cortex of the left kidney and in the inferior pole the left kidney. No solid renal masses. No calculi nor hydronephrosis.. ABDOMINAL AORTA: The abdominal aorta is atherosclerotic and exhibits a lack of normal tapering with m ild aneurysmal dilatation just above the aortic bifurcation. At this level the maximum diameter of t he aorta is 2.5 centimetres. There is also mild arterial megaly in the calcified common iliac arteri es. ABDOMINAL WALL/GI: No evidence of significant anterior abdominal wall hernia. No bowel obstruction. PELVIS: GI: No evidence of appendicitis.No evidence of sigmoid diverticulitis.There is, however, severe colit is pattern involving the left side of the colon starting at and distal to the splenic flexure and ext ending down to the rectum. LYMPH NODES: There is no intrapelvic nor inguinal adenopathy. REPRODUCTIVE: Prostate gland is not enlarged. URINARY BLADDER: Urinary bladder is somewhat distended. No obvious mass. OSSEOUS: There is a right hip prosthesis. There has been previous lumbar surgery with removal of pos terior osseous elements. Also bone graft material donor site right iliac bone. IMPRESSION: 1. The main finding here is a severe colitis pattern in left side of the colon at and distal to the s plenic flexure and extending to involve the rectum. 2. Layering calculi or sludge in the gallbladder lumen. No evidence of acute cholecystitis. The CBD is slightly prominent in size. There is no evidence of obvious calculus in the lower CBD and no marium dence of obvious pancreatic head mass nor dilatation of the pancreatic duct. 3. There are benign small cysts in both kidneys. No solid renal masses 4. Atherosclerotic abdominal aorta with mild infrarenal abdominal aortic aneurysm maximum diameter 2. 5 centimetres just above the bifurcation. There is a right hip prosthesis and evidence of previous lumbar spine surgery. There is also a catheter in the thecal space and this drains into the subcutaneous tissue in the ante rior right abdomen. RADIATION DOSE DELIVERED: 569.12mGy.cm Total DLP DATA REPOSITORY: All CT scans at this facility are submitted to the National Radiology Data Registry (NRDR) Dose Index Registry (DIR) with the [employer] (ACR). RADIATION OPTIMIZATION: All CT scans at this facility use at least one of these dose optimization te chniques: automated exposure control; mA and/or kV adjustment per patient size (includes targeted exa ms where dose is matched to clinical indication); or iterative reconstruction.
[2020-08-04] MEDS: Normal Saline Flush 10 ML SYR IVP ×2 (08:18→09:02)
[2020-08-04] MEDS: Lactated Ringers 1,000 ML 500 ML IV (08:18)
[2020-08-04 08:27] LABS: Abs Immature Grans 0.04 10^3/uL (0.0-0.06); Absolute Basophil Count 0.02 10^3/uL (0.0-0.2); Absolute Eosinophil Count 0.08 10^3/uL (0.0-0.7); Absolute Lymphocyte Count 1.14 10^3/uL (1.2-3.4); Absolute Monocyte Count 0.55 10^3/uL (0.1-0.8); Absolute Neutrophil Count 7.34 10^3/uL (1.2-6.7); Basophils % 0.2; Eosinophils % 0.9; HCT 42.9 % (40.0-50.0); HGB 14.5 g/dL (13.5-17.5); Immature Grans % 0.4; Lymphocytes % 12.4; MCH 33.5 pg (27.0-33.0); MCHC 33.8 % (32.0-36.0); MCV 99.1 fL (80-95); MPV 10.1 fL (8.0-11.0); Neutrophils % 80.1; Nucleated RBC 0 %; Platelet Count 200 10^3/uL (130-400); RBC 4.33 10^6/uL (4.36-5.78); RDW 13.2 % (11.8-14.1); RDW-SD 48.7 fL; WBC 9.17 10^3/uL (4.4-10.8)
[2020-08-04 08:41] LABS: ALT 27 U/L (16-63); AST 13 U/L (15-37); Albumin 3.8 g/dL (3.4-5.0); Alkaline Phosphatase 155 U/L (46-116); BUN 12 mg/dL (7-18); Bilirubin, Total 0.5 mg/dL (0.2-1.0); CREATININE 0.93 mg/dL (0.70-1.30); Calcium 8.4 mg/dL (8.5-10.1); Chloride 104 mmol/L (98-107); Glucose 270 mg/dL (74-106); Magnesium 1.9 mg/dL (1.8-2.4); Potassium 3.5 mmol/L (3.5-5.1); Sodium 140 mmol/L (136-145); Total Protein 7.5 g/dL (6.4-8.2); Troponin I < 0.05 ng/mL (<0.06)
[2020-08-04 08:48] LABS: TSH (W/Ref FT4) 1.26 uIU/mL (0.36-3.74)
[2020-08-04] MEDS: Omnipaque 350 MG/ML 100 ML BTL IJ (09:01)
--- NOTE | 2020-08-04 09:38 | DI.VRAD_ITS ---
PROCEDURE INFORMATION: Exam: CT Abdomen And Pelvis With Contrast Exam date and time: 08/04/2020 8:13 AM Age: 60 years old Clinical indication: Other: Llq pain and rectal bleeding; Prior surgery; Surgery date: 6+ months; Surgery type: Sigmoid colon resection 10 years ago, pain pump removed but wire still in place; Patient HX: Hypertension, hep c TECHNIQUE: Imaging protocol: Computed tomography of the abdomen and pelvis with intravenous contrast. COMPARISON: CT ABD PELVIS WITH CONTRAST 01/23/2017 10:45 AM FINDINGS: Tubes, catheters and devices: Intrathecal catheter evident. Mediastinal space: Small hiatal hernia. Liver: Normal. No mass. Gallbladder and bile ducts: Cholelithiasis. Pancreas: Normal. No ductal dilation. Spleen: Normal. No splenomegaly. Adrenal glands: Normal. No mass. Kidneys and ureters: 1.6 cm cortical renal cysts midpole left kidney and superior pole right kidney, both simple in appearance. No hydronephrosis. Stomach and bowel: Prominent wall thickening with mild adjacent inflammatory changes from the splenic flexure to the rectum. Nonspecific colitis, may be infectious, inflammatory, or possibly ischemic. Proximal LES appears patent. Additional workup necessary. No bowel obstruction. Appendix: No evidence of appendicitis. Intraperitoneal space: Unremarkable. No free air. No significant fluid collection. Vasculature: Unremarkable. No abdominal aortic aneurysm. Lymph nodes: Unremarkable. No enlarged lymph nodes. Urinary bladder: Unremarkable as visualized. Reproductive: Unremarkable as visualized. Bones/joints: Right hip prosthesis. Soft tissues: Unremarkable. IMPRESSION: 1. Prominent wall thickening with mild adjacent inflammatory changes from the splenic flexure to the rectum. Nonspecific colitis, may be infectious, inflammatory, or possibly ischemic. Proximal LES appears patent. Additional workup necessary. 2. Cholelithiasis. 3. Small hiatal hernia. Dictated and Authenticated by: Radha Carvajal MD. Ordering:NAHOMI Casas MD
[2020-08-04 09:51] LABS: Lactate 1.5 mmol/L (0.6-1.4)
[2020-08-04] MEDS: Lidocaine 2% Jelly 6 ML SYR (10:05)
[2020-08-04] MEDS: Lactated Ringers 1,000 ML 1000 ML IV (10:05)
--- NOTE | 2020-08-04 10:12 | NUR.NOTE ---
Addendum entered by Kala Gutierrez 08/04/20 10:49: Referral faxed to [facility] for follow up for urinary retention. Kala Gutierrez Original Note: Nursing Note: Referral [facility] for follow up next week. Kala Gutierrez
[2020-08-04 10:16] LABS: Bilirubin Negative (Negative); Blood Negative (Negative); Clarity Clear (Clear); Glucose 100 mg/dL (Negative); Ketones Negative (Negative); Leukocyte Esterase Negative (Negative); Nitrite Negative (Negative); Urobilinogen 0.2 EU/dL (Up TO 0.2)
== END 2020-08-04 10:52 | disposition home or self-care (01) ==
PROVIDERS: Emergency Provider Physician Assistant; PCP Family Medicine
DX: K62.5 Hemorrhage of anus and rectum (principal); R33.8 Other retention of urine; K52.9 Noninfective gastroenteritis and colitis, unspecified; E86.0 Dehydration; C20 Malignant neoplasm of rectum; Z92.3 Personal history of irradiation; Z92.21 Personal history of antineoplastic chemotherapy
CPT/HCPCS: 36415; 51702; 80053; 86850; 86900; 86901; 93005; 96361; 99285; 74177; 81003; 83605; 83735; 84443; 84484; 85025; 85610; 93010; J3490

== ENCOUNTER 2020-08-06 12:53 | Outpatient (CLI) | payer MEDICARE, MEDICAID, SELFPAY ==
[2020-08-06 15:20] LABS: Abs Immature Grans 0.04 10^3/uL (0.0-0.06); Absolute Basophil Count 0.02 10^3/uL (0.0-0.2); Absolute Eosinophil Count 0.05 10^3/uL (0.0-0.7); Absolute Lymphocyte Count 1.43 10^3/uL (1.2-3.4); Absolute Neutrophil Count 4.87 10^3/uL (1.2-6.7); Basophils % 0.3; Eosinophils % 0.7; HCT 41.7 % (40.0-50.0); HGB 13.9 g/dL (13.5-17.5); Immature Grans % 0.6; MCH 33.2 pg (27.0-33.0); MCHC 33.3 % (32.0-36.0); MCV 99.5 fL (80-95); MPV 9.6 fL (8.0-11.0); Monocytes % 5.9; Neutrophils % 71.5; Nucleated RBC 0 %; Platelet Count 213 10^3/uL (130-400); RBC 4.19 10^6/uL (4.36-5.78); WBC 6.81 10^3/uL (4.4-10.8)
[2020-08-06 15:46] LABS: C-Reactive Protein 1.54 mg/dL (0.0-0.3)
== END 2020-08-06 13:13 ==
PROVIDERS: PCP Family Medicine; Visit Provider Surgery
DX: M53.3 Sacrococcygeal disorders, not elsewhere classified (principal); B19.20 Unspecified viral hepatitis C without hepatic coma; C20 Malignant neoplasm of rectum; E86.0 Dehydration; G89.29 Other chronic pain; K52.9 Noninfective gastroenteritis and colitis, unspecified; K62.4 Stenosis of anus and rectum; K62.5 Hemorrhage of anus and rectum; K62.7 Radiation proctitis; R33.8 Other retention of urine; F17.210 Nicotine dependence, cigarettes, uncomplicated; F41.9 Anxiety disorder, unspecified; Z85.048 Personal history of other malignant neoplasm of rectum, rectosigmoid junction, and anus
CPT/HCPCS: 36415; 99213; 99214; 85025; 86140

== ENCOUNTER 2020-08-07 03:17 | Outpatient (CLI) | payer MEDICARE, MEDICAID, SELFPAY ==
[2020-08-08 12:31] LABS: COVID-19 RT-PCR UVMMC Result Negative (Negative)
== END 2020-08-07 03:37 ==
PROVIDERS: PCP Family Medicine; Visit Provider Surgery
DX: Z11.52 Encounter for screening for COVID-19 (principal); Z01.818 Encounter for other preprocedural examination
CPT/HCPCS: U0003

== ENCOUNTER 2020-08-09 12:54 | Outpatient (REF) | payer MEDICARE, MEDICAID, SELFPAY ==
[2020-08-10 15:00] LABS: C Diff PCR Negative (Negative)
[2020-08-11 11:27] LABS: Campylobacter PCR Negative (Negative); Salmonella PCR Negative (Negative); Shiga Toxin PCR Negative (Negative); Shigella/Enteroinvasive Ecoli Negative (Negative)
== END 2020-08-09 13:14 ==
LOC: LBN 12:54
PROVIDERS: PCP Family Medicine; Visit Provider Surgery
DX: K52.9 Noninfective gastroenteritis and colitis, unspecified (principal)
CPT/HCPCS: 87493; 87505

== ENCOUNTER 2020-08-10 12:05 | Day surgery (SDC) | payer MEDICARE, MEDICAID, SELFPAY ==
[2020-08-10 12:15] VITALS: BP 141/90; PULSE 113; RESP 18; TEMP 36.4; O2SAT 94
[2020-08-10] MEDS: Lactated Ringers 1,000 ML 80 ML IV (12:30)
--- NOTE | 2020-08-10 14:13 | PDOC.DSDIS_ITS ---
Discharge Plan Disposition Patient Disposition: HOME Condition: Good Discharge Details Attending Provider: Kathy Leon Primary Care Provider: Ke Mcconnell Home Meds and New Rx's Prescriptions: Discontinued polyethylene glycol 3350 17 gram/dose powder 238 g PO ONCE Qty: 238 RF: 0 bisacodyl [Dulcolax (bisacodyl)] 5 mg tablet,delayed release (DR/EC) 5 mg PO ONCE Qty: 6 RF: 0 No Action quetiapine [Seroquel] 400 mg tablet 400 mg PO BID RF: 0 gabapentin 300 mg capsule 300 mg PO BID RF: 0 diazepam [Valium] 5 mg tablet 5 mg PO TID PRN (Reason: anxiety) Qty: 14 RF: 0 Discharge Instructions Additional Instructions: Findings: narrowing. This was opened up Follow up: [address] Leon Please call if you develop: fevers >101.5 Nausea or Vomiting Abdominal pain that is not transient DAY SURGERY UNIT POST ENDOSCOPY INSTRUCTIONS 1. Because there will be medication in your system for the next 24 hours, you may feel a little sleepy. Your coordination will be affected. Therefore: a. Do not drive or operate dangerous equipment for 24 hours. b. Do not drink alcohol beverages for 24 hours (not even beer). c. Plan to go home and rest for the day. 2. Generally there are no restrictions on your activity after a day or so has gone by, but you may feel a bit fatigued for a few days. 3 After you arrive home you may have a light meal and return to a normal diet as you can tolerate it without feeling sick to your stomach. 4. After surgery, you may feel pain or discomfort. This should be only t ransient, but if it persists please contact your doctor. 5. If there are any questions regarding the findings of your procedure, please feel free to contact your doctor. 6. If you are unable to contact your doctor with a problem, contact the hospital at [phone]. 7. Continue all your regular medications unless directed otherwise. I understand the above instructions and have no questions. Signature of Patient or Responsible Adult Escort Date/Time Name of Responsible Adult Escort Signature of Nurse Date/Time Referrals: Kathy Leon, [OSTEOPATHIC DOCTOR] - (4 months) Activity:: Activity as Tolerated Diet:: As Tolerated Discharge Orders Discharge Orders: Discharge Order (Routine); Ordered 08/10/20 Ordered By: Kathy Leon
--- NOTE | 2020-08-10 14:17 | COLE_ITS ---
Date of service: 08/10/20 Time of Service: 14:17 Colonoscopy Report Date of procedure: 08/10/20 Pre-op diagnosis general: Hx of rectal cancer and stricture Post-op diagnosis procedure note: same Procedure: Colonoscopy with dilatation of stricture with 20 F balloon Surgeon: Kelsey Teran Anesthesia proc note operative: other (General/ ASA 2/ Jodie Desai, ROCIO) Estimated blood loss (mL): 0 Pathology: none sent Complications: None Disposition: same day Indications: Pt states his s/s started on Thursday. he Was having severe cramps into the left lower quadrant and into suprapubic area. Had episode of diarrhea x4 - just liquid. No blood. no fevers/chills. Sat am he started having combined dark and BRBPB. x1 episode of bleeding. Prior to this episode bowels have been regular- generally moving his bowels every day. . Has had + wt loss per the patient. No pain in his abdomen. Yesterday he was very gasey, no bleeding. no appetite. Not eating. He has a history of rectal cancer in 217. This was treated down at [facility] [place] with preop radiation and chemo and surgery. He has known history of stricture in the area and chronic radiation proctitis. His last colonoscopy we did have to have a 2-day prep because he just the stricture was so tight he was not moving his bowels. He unfortunately got lost to Covid. He should have had a colonoscopy a while ago. I think changes in CT are from chronic fecal impaction because of the stricture. I did review his labs including CBC and his CT scan from the ER. There are no focal liver lesions and his labs are all within normal parameters. He does have a history of hep C. It is unclear if this was ever treated. He does have a history of SVT-he did have an ablation for this and is not on any medication. Dr. Rudd thinks that is well controlled and will not pursue any other treatment at this time. Prep: Miralax/Dulcolax Procedure Start Time: 13:46 Procedure End Time: 14:03 Retraction Time: 10 minutes Findings: Stricture at 8 cm Procedure Description: After informed consent was obtained the patient was taken to the procedure room and placed in a left decubitous position. Monitors were applied and a time out was done. The patients name, date of , pro cedure, allergies to medications and metal in their body was reviewed. The patient was then sedated. Once sedated and comfortable a rectal exam was done. External exam was normal. Internal exam revealed a normal sphincter tone and no palpable masses. There was a palpable stricture. The scope was then introduced and retro-flexed. No internal hemorrhoids, polyps or masses were identified on retro-flexion. The scope was then advanced to the cecum without difficulty. The ileocecal valve and appendiceal orifice were identified. The prep was not adequate. There was a lot of stool left in the entire colon. The scope was then retracted over 10 minutes back into the rectum. There were no masses, but small polyps would have been missed with the amount of liquid and formed stool. The balloon dilator was placed into the stricture and it was gently inflated to 20 F. It was held for 1 minute and deflated. It was re-inflated to 20 F and held. After the second dilatation the balloon passed through the stricture without difficulty. The balloon was removed. There were no cracks or perforation noted at the site of dilatation. The scope was removed and the patient was woken up and taken back to Same day surgery in stable condition. The patient tolerated the procedure well and there were no immediate complications. Follow up: The patient should follow up in [address] Leon for repeat dilatation, unless they develop changes in bowel habits or other new gastrointestinal complaints.
[2020-08-10 14:59] VITALS: BP 118/78; PULSE 85; RESP 16; TEMP 35.8; O2SAT 94
== END 2020-08-10 15:20 | disposition home or self-care (01) ==
LOC: SUR 16:01
PROVIDERS: PCP Family Medicine; Visit Provider Surgery
PROC: 0DJD8ZZ Inspection of Lower Intestinal Tract, Via Natural or Artificial Opening Endoscopic (ICD-10-PCS; CPT 45378; principal; 2020-08-10 12:00)
DX: Z12.11 Encounter for screening for malignant neoplasm of colon (principal); Z85.048 Personal history of other malignant neoplasm of rectum, rectosigmoid junction, and anus; K62.4 Stenosis of anus and rectum; K62.7 Radiation proctitis; W88.1XXS Exposure to radioactive isotopes, sequela; K21.9 Gastro-esophageal reflux disease without esophagitis
CPT/HCPCS: 45386; J2001

== ENCOUNTER → 2021-01-21 09:56 | Outpatient (BNVA) | payer MEDICARE, MEDICAID, SELFPAY | PROVIDERS: PCP Family Medicine; Referring Provider Family Medicine; Visit Provider Surgery | DX: K62.4 Stenosis of anus and rectum (principal); K59.00 Constipation, unspecified; F10.21 Alcohol dependence, in remission; C20 Malignant neoplasm of rectum; F17.210 Nicotine dependence, cigarettes, uncomplicated | CPT/HCPCS: 99212; 99213 ==

== ENCOUNTER 2021-01-21 13:26 | Outpatient (CLI) | payer MEDICARE, MEDICAID, SELFPAY ==
--- NOTE | 2021-01-21 11:00 | DI.RAD_ITS ---
Exam(s) XR ABD FLAT UPRIGHT PA CHEST EXAM: XR ABD FLAT UPRIGHT PA CHEST CLINICAL HISTORY: cough/bronchitis z87.891, f10.21, c20, f17.200, k62.4. TECHNIQUE: 2D digital imaging was performed. COMPARISON: CR XR PORTABLE CHEST AP from 07/22/2019 CR XR PORTABLE CHEST AP from 07/22/[address] CHEST PE CTA from 08/18/2019 CR XR CHEST 2V PA LATERAL from 08/18/[address] CHEST PE CTA from 08/18/2019 FINDINGS: Heart size is normal. Mediastinum not widened. Bilateral hyperinflation is again noted. There are no new confluent infiltrates nor pleural effusions. No pneumothorax. In the abdomen we note a right hip prosthesis with circumferential trochanteric level wires. No acut e fractures. Vascular calcification in the abdominal aorta and iliac arteries is noted. There is a catheter projected over the right iliac fossa which appears somewhat thin to be a drainage catheter. This may or may not be within the body. The bowel gas pattern is nonspecific. No obvious bowel obstruction. No abnormal calcification over the kidneys nor along the course of the ureters. IMPRESSION: COPD. No acute pulmonary findings. No pleural effusions Right hip hardware. Catheter projects over the right iliac fossa as described above. Please note that CT scan August 2019 revealed cholelithiasis. DATA REPOSITORY: RADIATION DOSE DELIVERED:
== END 2021-01-21 13:46 ==
PROVIDERS: PCP Family Medicine; Visit Provider Surgery
DX: J44.9 Chronic obstructive pulmonary disease, unspecified; C20 Malignant neoplasm of rectum; K62.4 Stenosis of anus and rectum; B19.20 Unspecified viral hepatitis C without hepatic coma; F10.21 Alcohol dependence, in remission; F17.200 Nicotine dependence, unspecified, uncomplicated; Z96.641 Presence of right artificial hip joint; Z95.820 Peripheral vascular angioplasty status with implants and grafts
CPT/HCPCS: 99213; 74022

== ENCOUNTER 2021-03-08 02:36 | Outpatient (CLI) | payer MEDICARE, MEDICAID, SELFPAY ==
[2021-03-08 12:49] LABS: Source Nasal/Nares
[2021-03-08 16:58] LABS: COVID-19 PCR Negative (Negative)
== END 2021-03-08 02:37 | disposition home or self-care (01) ==
LOC: LBO 02:36
PROVIDERS: PCP Family Medicine; Visit Provider Surgery
DX: Z20.822 Contact with and (suspected) exposure to COVID-19 (principal)
CPT/HCPCS: 87635

== ENCOUNTER 2021-03-12 07:46 | Day surgery (SDC) | payer MEDICARE, MEDICAID, SELFPAY ==
--- NOTE | 2021-03-11 08:56 | HPE_ITS ---
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 Risks include but are not limited to: bleeding, infection, perforation of esophagus, stomach, colon, small intestines, bronchus or trachea, or PTX. This would necessitate emergency surgery to repair the damage w/ possible ostomy; and other associated complications w/ the required surgery. Also complications of anesthesia including aspiration, FL/CVA/. We may do a dilation as well today. With associated risks of perforation (11) SVT (supraventricular tachycardia): Status: Chronic (12) Radiation proctitis: Status: Acute (13) Bipolar disorder: Status: None History of Present Illness Narrative: 08/10/20: He has a history of rectal cancer in 217. This was treated down at [facility] with preop radiation and chemo and surgery. He has known history of stricture in the area and chronic radiation proctitis. His last colonoscopy we did have to have a 2-day prep because he just the stricture was so tight he was not moving his bowels. He unfortunately got lost to Covid. He should have had a colonoscopy a while ago. I think changes in CT are from chronic fecal impaction because of the stricture. 01/21/21: Pt reports about 2-21/2 weeks ago he got sick, had a cough, no fever, weight loss because of no appetite. Pt's weight is up today from what it had been, continues to smoke 10 cigarettes a day. Pt reports he eats oatmeal in the morning that then fills him up but he does not want to stop this because it helps with his constipation. Pt does not feel that he needs to be dilated yet. Pt reports he is tired. He has had rectal cancer in the past. He had radiation for the cancer. He developed a stricture after his surgery and is required multiple dilations. He had a CBC in July which was normal. He had a CT of the chest in 2019 which was negative he had an echo in 2019 which was negative. He has not had a chest x-ray in greater than 12 months. He is not coughing at this point. It was never productive cough. He is not coughing up blood. He does have an extensive history of smoking. He has not had about 5 pounds of weight loss that he is not been able to put back on. He notes he has no appetite. He is forcing himself to eat Bowels are moving well- no pain or straining. Before he got the bronchitis- he was eating well and things are regular. He has been eating lot oatmeal. He lost his appetite while he was ill. He lost his apptite, and it still has not returned, and has hard time eating. His weight had been stable prior to the bronchitis He still has pain in his left posterior ribs He is taking 3/4 tbs mirlax at bedtime and was having regular BM. No blood in stools. He only goes 1-3 times in the morning. Stools are formed and soft-Garfield 4 smokes about 10 cigs a day Patient has a history of: DM: no CVA/FL: SVT for which he had an ablation. Cardiology does not feel he needs any further work-up for this. CPAP use: No Blood thinners: No Kidney disease: No 03/12/21 Today he is doing well. He completed the prep. Is just a clear yellow that is coming out. He is having no abdominal pain or cramping. He currently has no nausea vomiting. He has no chest pain. He has chronic shortness of breath and a productive cough. This is unchanged. No signs or symptoms of Covid. No Covid exposure that he is aware of. He did have a chest x-ray which did show no acute disease. He does have pretty significant chronic COPD He takes MiraLAX daily and this keeps his bowels regular. He has been able to eat. He moves his bowels daily. He has had no weight loss. No blood in his stools. Today he says his prep is liquid but still feculent. He is still smoking No changes in meds or health conditions since I saw him in the office in January Review of Systems All systems reviewed & are unremarkable except as noted in HPI and below PFSH Medical History Alcohol abuse Anxiety Back pain Bipolar disorder Chronic back pain Colon cancer Hepatitis C HTN (hypertension) Legg-Perthes disease Narcolepsy Pt. stated this dx was rx related Post laminectomy syndrome Rectal bleeding Sacroiliac dysfunction Spondylosis of lumbar region without myelopathy or radiculopathy Surgical History Colectomy (~2009) Sigmoid Resection Colonoscopy - MAC (09/28/18) Patient formerly followed by [facility]. Hx of rectal cancer. Rosie 12/30/16 CD noted rectal lesion/rectal stenosis, path showed histological features of regeneration/repair. CD rec'd patient follow up in office in 6 mos. No f/up. 09/02/18 Dr Leggett patient has passed blood/clot in stool. mg 09/28/18 - Rosie with Kathy Leon rec's consult in 6 months with possible dilation. mg History of colonoscopy (~08/10/20) Pt needs two day prep Dilation History of cystoscopy Open Carpal Tunnel release (~2001) RIGHT removal of pain pump (11/19/16) Replacement of total knee joint bilateral knee reconstruction; x2 S/P total knee replacement Sigmoidoscopy (11/26/16) Spinal Fusion (~1995) L5-S2 Total replacement of hip (~2006) RIGHT Family History Mother Neoplasm BRAIN Father No problems noted. Sister No problems noted. Sister No problems noted. Social History Smoking/Tobacco Use Status: Current every day Tobacco Type: cigarettes Counseling given: patient declined Smoking risk assessment performed?: Yes Alcohol Intake: former Drug use: Occasionally Substance use type: marijuana Details: 03/12 denies today; t-2 Pets and animals: Yes Pets and animals: cat(s) What type of physical activity do you participate in: other Details: stationary bike and stretching Duration: decline to answer Frequency: 3-4 times per week Jillian/Latter-Day: No preference Special jillian needs: No Do you feel safe at home: Yes Do you feel safe in your relationship?: Yes Meds Allergies and Home Medications Allergies Allergy/AdvReac Type Severity Reaction Status Date / Time codeine Allergy Mild Itching Verified 03/12/21 08:16 aspirin AdvReac Severe Nausea Verified 03/12/21 08:16 Interferons AdvReac Severe NAUSEA, Verified 03/12/21 08:16 WEIGHT LOSS Home Medications Medication Instructions Recorded Confirmed Type gabapentin 300 mg capsule 300 mg PO BID 05/04/18 03/12/21 History quetiapine 400 mg tablet 400 mg PO BID 05/04/18 03/12/21 History polyethylene glycol 3350 17 17 g PO DAILY 01/21/21 03/12/21 History gram/dose oral powder bisacodyl 5 mg tablet,delayed 5 mg PO ONCE #4 tab 03/04/21 03/12/21 Rx release polyethylene glycol 3350 17 238 g PO ONCE #238 g 03/04/21 03/12/21 Rx gram/dose oral powder diazepam [Valium] 10 mg PO BID 03/12/21 03/12/21 History Exam Resp Effort & Inspection: normal respiratory effort and able to speak in complete sentences Auscultation: clear to auscultation bilaterally Other: No rales rhonchi or wheezing. Decreased breath sounds throughout secondary to his severe COPD Cardio Rate: regular rate Rhythm: regular rhythm GI Other: Soft and nontender today
[2021-03-12 08:22] VITALS: BP 126/85; PULSE 120; RESP 21; TEMP 36.7; O2SAT 96
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
[2021-03-12] MEDS: Lactated Ringers 1,000 ML 80 ML IV (08:40)
[2021-03-12 09:39] VITALS: BMI 25.4
--- NOTE | 2021-03-12 09:45 | BOWEL_PTH ---
PATIENT: Bernardo Sales JR LOC: [facility] U#:[id number] AGE/SX: 60/M ROOM: RE03/12/[address]: Kathy Leon : 1960 BED: DIS: 03/12/2021 SPEC #: [id number] RECD: 03/12/21 12:38 STATUS: RAI REQ #: [id number] ADALGISA: 03/12/21 09:[address]: Kathy Leon DEPT: Surgical Specimen RECD BY: Diana Watkins ENTERED: 03/12/21 12:39 SP TYPE: Bowel OTHR DR: Ke Mcconnell MD Tissues: 1 - BIOPSY BOWEL Procedures: GROSS AND MICRO LEVEL 4 Comments: [id number]
--- NOTE | 2021-03-12 10:15 | ROE_ITS ---
Date of service: 03/12/21 Time of Service: 10:15 Operative Note Operative Note DATE OF PROCEDURE: 03/12/21 PRE-OP DIAGNOSIS: rectal stricture secondary to radiation and surgery POST-OP DIAGNOSIS: same PROCEDURE: hot polpectomy x1 and dilation ANESTHESIA TYPE: General LMA/ETT Refer to Anesthesia Record ESTIMATED BLOOD LOSS: 3 PATHOLOGY: other COMPLICATIONS: None Patient was transported to: same day Patient's condition: stable Procedure Description: After informed consent was obtained the patient was taken to the procedure room and placed in a left decubitous position. Monitors were applied and a time out was done. The patients name, date of , procedure, allergies to medications and metal in their body was reviewed. The patient was then sedated. Once sedated and comfortable a rectal exam was done. External exam was normal. Internal exam revealed a normal sphincter tone and no palpable masses. The scope was then introduced and retrofelexed. No internal hemorrhoids were identified. The scope was then advanced to the cecum w/out difficulty. The TI and appendiceal orifice were identified. The prep was poor. He had a small polyp that was removed at 90cm with a hot forcep. All specimen is retrieved and no bleeding is noted. The scope was then slowly retracted over 9 minutes back into the rectum. His stricture is at about 5 cm from the anal verge where the anastomosis was. This is dilated to 20 mmHg for 2 minutes x 2. The balloon was removed. There is no bleeding or tearing at the dilation site. The scope was then withdrawn. Patient helps to develop. The scope was removed and the patient was woken up and taken back to Same day surgery in stable condition. The patient tolerated the procedure well and there were no immediate co mplications. Follow up: The patient should follow up in 6-12m, depending on his BM, unless they develop changes in bowel habits or other new gastrointestinal complaints.
[2021-03-12 10:17] VITALS: BP 123/83; PULSE 97; RESP 16; TEMP 36.6; O2SAT 98
--- NOTE | 2021-03-12 10:19 | W.ANESPOSTOP ---
Postoperative Evaluation Date, Time and Location Date Performed: 03/12/21 Time Performed: 10:19 Patient Location: Day Surgery Unit Vital Signs Most Recent Imported Vital Signs: Most Recent Vital Signs Temp Pulse Resp BP Pulse Ox 36.7 C 120 H 21 126/85 96 03/12/21 08:22 03/12/21 08:22 03/12/21 08:22 03/12/21 08:22 03/12/21 08:22 Most Recent Manually Entered Vital Signs: Adult Blood Pressure: 123/83 Heart Rate: 95 Respirations: 16 Oxygen Saturation (%): 98 Temperature (C): 36.6 C Pain Score (0-10 Scale): 0 Pain Score Most Recent Pain Score: Most Recent Pain Score Pain Level 2 03/12/21 08:22 Assessment Mental Status: Awake (Alert & Oriented to Patient Baseline) Airway and Respiratory Function: Patent airway with normal (patient baseline) respiratory exam Cardiovascular Function: Hemodynamically Stable Hydration Status: Adequately Hydrated Nausea & Vomiting: No Nausea or Vomiting Pain: Pt. Denies Any Pain Peripheral Nerve Block: Patient did not receive a nerve block
[2021-03-12 10:21] VITALS: BP 123/83; PULSE 95; RESP 16; TEMPC 36.6; O2SAT 98
--- NOTE | 2021-03-12 10:24 | PDOC.DSDIS_ITS ---
Discharge Plan Disposition Patient Disposition: HOME Condition: Good Discharge Details Reason For Visit: dilation Attending Provider: Kathy Leon Primary Care Provider: Ke Mcconnell Home Meds and New Rx's Prescriptions: Continued quetiapine [Seroquel] 400 mg tablet 400 mg PO BID RF: 0 gabapentin 300 mg capsule 300 mg PO BID RF: 0 polyethylene glycol 3350 [Miralax] 17 gram/dose powder 17 g PO DAILY RF: 0 diazepam [Valium] 5 mg tablet 10 mg PO BID RF: 0 Discontinued bisacodyl [Dulcolax (bisacodyl)] 5 mg tablet,delayed release (DR/EC) 5 mg PO ONCE Qty: 4 RF: 0 polyethylene glycol 3350 17 gram/dose powder 238 g PO ONCE Qty: 238 RF: 0 Discharge Instructions Additional Instructions: DSU Colonoscopy Post- Op Instructions Instructions for Everyone who is given Anesthesia: For your safety, please do the following for the next twenty-four (24) hours: *Do Not operate a motor vehicle (car, truck, motorcycle, etc.) *Do Not drink alcoholic beverages or use any recreational drugs for the first 24 hours or while taking pain medications. The medications in your body may have a reaction that can be dangerous. *Do Not make any important decisions or sign any important papers. Findings:x1 sm polyp stricture- dilated Follow up: 1. No lifting over 20 pounds or strenuous activity for the first 24 hours after your procedure. After 24 hours there are no restrictions on your activity but you may feel fatigued for a few days. 2. After you arrive home you may have a light meal and return to your normal diet as you can tolerate it without feeling sick to your stomach. 3. You may have a bloated, gaseous feeling in your belly (abdomen) after a colonoscopy. Passing gas and belching will help. Walking or lying down on your left side with your knees flexed may relieve the discomfort. Call the office at [phone] (Office) or [phone] (Hospital) right away if you notice any of the following: a.Vomiting of blood or ?coffee ground stools?. b.Rectal bleeding 1Tbsp, blood clots or continuous bleeding. c.Severe belly (abdominal) pain. d.A hard distended belly (abdomen) and an inability to pass gas. 4. Please don?t expect to have a normal BM (bowel movement) for 2-3 days after your procedure. 5. If there are questions regarding the findings of your procedure, please contact your doctor 6. If you are unable to contact your doctor with a problem, contact the hospital at [phone]. 7. Continue all your regular medications unless directed otherwise. I understand the above instructions and have no questions. 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
[2021-03-12 10:49] VITALS: BP 123/83; PULSE 87; RESP 16; TEMP 36.3; O2SAT 95
--- NOTE | 2021-03-12 20:12 | W.COLOREPORT ---
Colonoscopy Report Date of procedure: 03/12/21 Pre-op diagnosis general: colon stricture following surgery& XRT for colo-rectal cancer Post-op diagnosis procedure note: other (polyp and diverticula as well ) Procedure: hot polypectomy removal and dilation of colon. Surgeon: Kathy Leon Anesthesia Type: General LMA/ETT Estimated blood loss (mL): 1 Pathology: other Complications: None Disposition: same day Prep: Miralax/Dulcolax Retraction Time: 9 Procedure Description: After informed consent was obtained the patient was taken to the procedure room and placed in a left decubitous position. Monitors were applied and a time out was done. The patients name, date of , procedure, allergies to medications and metal in their body was reviewed. The patient was then sedated. Once sedated and comfortable a rectal exam was done. External exam was normal. Internal exam revealed a normal sphincter tone and no palpable masses. The scope was then introduced and retrofelexed. No internal hemorrhoids were identified. The scope was then advanced to the cecum w/out difficulty. The TI and appendiceal orifice were identified. The prep was poor; lesions less than 5mm may have been missed. He had a small polyp that was removed at 90cm with a hot forcep. All specimen is retrieved and no bleeding is noted. The scope was then slowly retracted over 9 minutes back into the rectum. His stricture is at about 5 cm from the anal verge where the anastomosis was. He had a previous LAR/left colon resection. This is dilated to 20 mmHg for 2 minutes x 2. The balloon was removed. There is no bleeding or tearing at the dilation site. Pt tolerated the procedure well. The scope was removed and the patient was woken up and taken back to Same day surgery in stable condition. The patient tolerated the procedure well and there were no immediate complications. Follow up: The patient should follow up in 6-12m, depending on his BM, unless they develop changes in bowel habits or other new gastrointestinal complaints.
== END 2021-03-12 11:12 | disposition home or self-care (01) ==
PROVIDERS: PCP Family Medicine; Visit Provider Surgery
PROC: 0DJD8ZZ Inspection of Lower Intestinal Tract, Via Natural or Artificial Opening Endoscopic (ICD-10-PCS; CPT 45378; principal; 2021-03-12 09:00)
DX: K63.5 Polyp of colon (principal); K91.89 Other postprocedural complications and disorders of digestive system; K62.4 Stenosis of anus and rectum; K62.7 Radiation proctitis; F17.210 Nicotine dependence, cigarettes, uncomplicated; Y84.2 Radiological procedure and radiotherapy as the cause of abnormal reaction of the patient, or of later complication, without mention of misadventure at the time of the procedure; Z85.048 Personal history of other malignant neoplasm of rectum, rectosigmoid junction, and anus
CPT/HCPCS: 45384; 45386; 88305; J2001; J2250

== ENCOUNTER 2021-09-30 10:35 | Outpatient (CLI) | payer MEDICARE, MEDICAID, SELFPAY ==
--- NOTE | 2021-09-30 10:30 | RT.EKG_ITS ---
APPROVED REPORT Exam: Resting ECG Reason for Exam: tachycardia Patient Location: O HR:102 bpm ECG Measurements Heart Rate 102 AXIS [place] 177 P 76 QRSd 104 QRS -35 QT 353 T 39 QTc 460 Conclusion Sinus tachycardia...rate> 99 Low voltage Suspect incorrect lead placement V1 through V3
== END 2021-09-30 10:36 | disposition home or self-care (01) ==
LOC: DI.CM 10:37
PROVIDERS: PCP Family Medicine; Visit Provider Family Medicine
DX: R00.0 Tachycardia, unspecified (principal)
CPT/HCPCS: 93010

== ENCOUNTER 2021-09-30 17:30 | Outpatient (REF) | payer MEDICARE, MEDICAID, SELFPAY ==
[2021-09-30 18:28] LABS: HCT 45.6 % (40.0-50.0); HGB 14.9 g/dL (13.5-17.5); MCH 33.2 pg (27.0-33.0); MCHC 32.7 % (32.0-36.0); MCV 101.6 fL (80-95); MPV 10.4 fL (8.0-11.0); Platelet Count 228 10^3/uL (130-400); RBC 4.49 10^6/uL (4.36-5.78); RDW 13.2 % (11.8-14.1); RDW-SD 49.6 fL; WBC 5.78 10^3/uL (4.4-10.8)
[2021-09-30 19:35] LABS: Hemoglobin A1C 6.1 % (<5.7)
[2021-09-30 19:58] LABS: ALT 31 U/L (16-63); AST 18 U/L (15-37); Albumin 4.2 g/dL (3.4-5.0); Alkaline Phosphatase 106 U/L (46-116); Anion Gap 8.3 mmol/L (3-11); BUN 13 mg/dL (7-18); Bilirubin, Total 0.4 mg/dL (0.2-1.0); CO2 28.7 mmol/L (21.0-32.0); CREATININE 0.7 mg/dL (0.70-1.30); Calcium 9.1 mg/dL (8.5-10.1); Calculated LDL 80 mg/dL (<100); Chloride 104 mmol/L (98-107); Cholesterol 145 mg/dL (<200); Glucose 100 mg/dL (74-106); HDL Cholesterol 52 mg/dL (40-60); Potassium 4.3 mmol/L (3.5-5.1); Sodium 141 mmol/L (136-145); TSH (W/Ref FT4) 1.68 uIU/mL (0.36-3.74); Total Protein 7.7 g/dL (6.4-8.2); Triglyceride 66 mg/dL (<150)
== END 2021-09-30 17:31 | disposition home or self-care (01) ==
LOC: LBN 17:30
PROVIDERS: PCP Family Medicine; Visit Provider Family Medicine
DX: R42 Dizziness and giddiness; R73.9 Hyperglycemia, unspecified; I10 Essential (primary) hypertension
CPT/HCPCS: 80053; 80061; 85027; 83036; 84443

== ENCOUNTER → 2021-10-07 10:30 | Outpatient (BNVA) | payer MEDICARE, MEDICAID, SELFPAY | PROVIDERS: PCP Family Medicine; Referring Provider Family Medicine; Visit Provider Surgery | DX: R00.0 Tachycardia, unspecified (principal); Z85.048 Personal history of other malignant neoplasm of rectum, rectosigmoid junction, and anus | CPT/HCPCS: 99212 ==

== ENCOUNTER → 2021-10-14 09:40 | Outpatient (BNVA) | payer MEDICARE, MEDICAID, SELFPAY | PROVIDERS: PCP Family Medicine; Referring Provider Family Medicine; Visit Provider Internal Medicine Cardiovascular Disease | DX: I47.1 Supraventricular tachycardia (principal) | CPT/HCPCS: 99213 ==

== ENCOUNTER → 2021-12-04 03:23 | Outpatient (CLI) | payer MEDICARE, MEDICAID, SELFPAY ==
--- NOTE | 2021-12-04 07:30 | DI.CTLCSR_ITS ---
Exam(s) CT CHEST LUNG CANCER SCREEN EXAM: CT CHEST LUNG CANCER SCREEN CLINICAL HISTORY: Screening for lung cancer, CURRENT SMOKER, F17.210 TECHNIQUE: Imaging Protocol: Axial computed tomography images with coronal and sagittal reformatted images were created and reviewed COMPARISON: CT CHEST WITH CONTRAST from 06/27/2016 FINDINGS: Tracheobronchial tree: Patent where visualized. Pulmonary parenchyma: No consolidation or dominant measurable mass. Moderately severe emphysematous c hanges in the lungs. Lung Nodules: There is a stable 2 mm nodule in the medial aspect of the right lower lobe. It is unch anged since 2016. Mediastinum and Latricia: No dominant adenopathy or fluid collection. The esophagus is unremarkable.Small hiatal hernia. Thyroid gland: Unremarkable. Lymph nodes: Unremarkable. Pleura: No effusion or pneumothorax. Heart: The heart is not dilated. Coronary artery calcifications are present. No pericardial effusion . Aorta: Thoracic aorta non-dilated.Atherosclerosis. Upper abdomen: Cholelithiasis. Soft Tissues: Unremarkable. Bones: Within normal limits. There is a nerve stimulating device present in the spinal canal. Stable mid thoracic compression fracture deformities are present. IMPRESSION: Stable 2 mm nodule. Lung RADS Cat 2 - Benign Appearance / Behavior: Nodules with a very low likelihood of becoming a clin ically active cancer due to size or lack of growth Lung-RADS 1.0 CATEGORIES: Category 0 - Prior chest CT exam(s) being located for comparison. Category 1 - Annual screening in 12 months. No nodules or definitely benign nodules. Category 2 - Annual screening in 12 months. Benign appearance. Nodules with low likelihood of becomin g active cancer. Category 3 - 6-month follow-up. Probably benign. Short-term follow-up suggested. Nodules with low lik elihood of becoming active cancer. Category 4A - 3-month follow-up and CT/PET if >8 mm in size. Suspicious finding. Findings which requi re additional testing. Category 4B - Findings which require additional testing and tissue sampling. Suspicious finding. Category 4X - Category 3 or 4 nodules with additional features or imaging findings that increases the suspicion of malignancy. Modifier S- Potentially clinically significant finding. (Non lung cancer) RADIATION DOSE DELIVERED: 75.31mGy.cm Total DLP 1.84mGy CTDIvol 75.31mGy.cm Total DLP 1.84mGy CTDIvol DATA REPOSITORY: All CT scans at this facility are submitted to the National Radiology Data Registry (NRDR) Dose Index Registry (DIR) with the [employer] (ACR). RADIATION OPTIMIZATION: All CT scans at this facility use at least one of these dose optimization te chniques: automated exposure control; mA and/or kV adjustment per patient size (includes targeted exa ms where dose is matched to clinical indication); or iterative reconstruction.
--- NOTE | 2021-12-04 07:30 | DI.MRI_ITS ---
Exam(s) MR BRAIN WO/W EXAM: MR BRAIN WO/W CLINICAL HISTORY: brain fog; hx of colon cancer, R41.89 TECHNIQUE: Multiplanar multisequence MRI of the brain was performed. CONTRAST MATERIAL: IV Contrast: 14 mL of Dotarem contrast administered. COMPARISON: No exams were available for comparison FINDINGS: VENTRICLES AND EXTRA AXIAL SPACES: Normal in size and morphology for the patient's age. HEMORRHAGE: None. CEREBRAL PARENCHYMA: No focus of restricted diffusion to suggest acute infarct. No space-occupying le meera identified. MIDLINE SHIFT: None. BRAINSTEM/CEREBELLUM: Normal. CALVARIUM: Normal. ENHANCEMENT: No suspicious enhancement identified. VISUALIZED PARANASAL SINUSES/MASTOIDS: Clear. [place]: There appears to be a 4.5 mm aneurysm at the junction of the right internal carotid artery and the right middle carotid artery. PITUITARY GLAND: Unremarkable. OTHER FINDINGS: IMPRESSION: 1. No evidence of an intracranial mass, infarct or enhancing lesion. 2. Findings suggestive of 4.5 cm aneurysm at the junction of the right internal carotid artery and ri ght middle cerebral artery. MRA of the [id number]-ev-Fdtenn is recommended for further evaluation. Incidental DATA REPOSITORY:
[2021-12-04] MEDS: Normal Saline Flush 10 ML SYR IVP (10:42)
[2021-12-04] MEDS: Gadoterate meglumine 20 ML VIAL 14 ML IVP (10:42)
== END ==
PROVIDERS: PCP Family Medicine; Visit Provider Family Medicine
DX: Z12.2 Encounter for screening for malignant neoplasm of respiratory organs (principal); F17.210 Nicotine dependence, cigarettes, uncomplicated; J43.8 Other emphysema; R91.1 Solitary pulmonary nodule; R41.89 Other symptoms and signs involving cognitive functions and awareness; I67.1 Cerebral aneurysm, nonruptured
CPT/HCPCS: 70553; 71271

== ENCOUNTER → 2021-12-10 01:08 | Outpatient (CLI) | payer MEDICARE, MEDICAID, SELFPAY ==
--- NOTE | 2021-12-10 10:15 | DI.MRI_ITS ---
Exam(s) MR ANGIO BRAIN WO EXAM: MR ANGIO BRAIN WO CLINICAL HISTORY: aneurysm identified on brain MRI; MRA recommended,I72.0,I67.1 TECHNIQUE: Hnnx-[id number]-gfcvnl sequence. No IV contrast COMPARISON: MR MR BRAIN WO/W from 12/04/2021 FINDINGS: ANTERIOR CIRCULATION: Both internal carotid arteries are patent within the skull base-carotid canals and cavernous sinuses. On the RIGHT side there is a valdez aneurysm off the superior aspect of the junction of the right ICA and right middle cerebral artery. This exhibits flow signal therein. Size measurement is 6 millimet ers craniocaudal by 5 millimeters wide by 5 millimeters AP. The right middle cerebral artery is dunbar nt distal to this with no other aneurysms along the course of this vessel and patent flow signal ther ein as well as within the the latter sylvian fissure branches. There is no aneurysm on the opposite- left side. Left middle cerebral artery is patent as are the sylvian fissure branches of this vessel. Both A1 segments are patent as are the anterior cerebral arteries. There is a subtle suggestion of a possible aneurysm at the level of the anterior communicating artery measuring approximately 2.5 x 1. 5 millimeters. This is left of center POSTERIOR CIRCULATION: Both vertebral arteries are patent at the skull base and contribute to the formation basilar artery. Both posterior inferior cerebellar artery are patent and originate off the vertebral arteries at the skull base. The basilar artery ascends with normal luminal diameter. Distally it gives off patent bilateral superior cerebellar arteries and above this level terminates as patent bilateral posterior cerebral arteries. There is no aneurysm of the tip of the basilar artery. IMPRESSION: 1. There is an aneurysm originating off the superior aspect of the origin of the right middle cerebra l artery at its junction with the ipsilateral internal carotid artery and A1 segment. The ipsilatera l A1 segment is intimately related to this aneurysm. 2. There is also suggestion of a possible aneurysm left of center at the level of the anterior commun icating artery. 3. Appropriate referral recommended. Also recommend CT angiography of the head and neck. DATA REPOSITORY:
== END ==
PROVIDERS: PCP Family Medicine; Visit Provider Family Medicine
DX: I67.1 Cerebral aneurysm, nonruptured (principal)
CPT/HCPCS: 70544

== ENCOUNTER 2022-07-21 01:47 | Outpatient (CLI) | payer MEDICARE, MEDICAID, SELFPAY ==
--- NOTE | 2022-07-21 | DI.MRI_ITS ---
Exam(s) MR ANGIO BRAIN WO CLINICAL HISTORY: RT INTERNAL CAROTID ARTERY ANEURYSM I67.1, EVAL FOR RECURRENCE. TECHNIQUE: 3D [id number]-fw-cokxvv study was performed without contrast. COMPARISON: MRI brain 04 Dec 2021 MRA brain 10 Dec 2021 FINDINGS: Carotid Arteries: Petrous: Normal. Cavernous: Normal. Cerebral: Taisha diameter. No aneurysm l. Middle Cerebral Arteries: Right: No aneurysm or significant stenosis. Rounded area of signal void now seen at the site of the previously noted aneurysm at the junction of the right ICA with right middle cerebral artery. Left: No aneurysm or significant stenosis. Anterior Cerebral Arteries: Right: No aneurysm or significant stenosis. Left: No aneurysm or significant stenosis. Posterior cerebral arteries: Right: No aneurysm or significant stenosis Left: No aneurysm or significant stenosis Vertebral Arteries: Right: No aneurysm or significant stenosis. No dissection. Left: No aneurysm or significant stenosis. No dissection.. Basilar Artery: No aneurysm or significant stenosis. Small Vessels: No evidence of beading. IMPRESSION: No evidence of recurrence or new aneurysm. DATA REPOSITORY:
== END 2022-07-21 02:07 ==
LOC: DI 01:47
PROVIDERS: PCP Family Medicine; Visit Provider Occupational Therapist
DX: I67.1 Cerebral aneurysm, nonruptured (principal)
CPT/HCPCS: 70544

== ENCOUNTER → 2022-11-03 09:34 | Outpatient (BNVA) | payer MEDICARE, MEDICAID, SELFPAY | PROVIDERS: PCP Family Medicine; Visit Provider Internal Medicine Cardiovascular Disease | DX: Z98.890 Other specified postprocedural states (principal); I47.1 Supraventricular tachycardia | CPT/HCPCS: 99213 ==

== ENCOUNTER 2023-01-21 00:48 | Outpatient (CLI) | payer MEDICARE, MEDICAID, SELFPAY ==
--- NOTE | 2023-01-21 10:45 | DI.MRI_ITS ---
Exam(s) MR ANGIO BRAIN WO EXAM: MR ANGIO BRAIN WO CLINICAL HISTORY: RT ICA ANEURYSM, I67.1, S/P COIL EMOBLIZATION,? [facility] INFUNDIBULUM/ANEURYSM TECHNIQUE: Performed on 1.5 angelique unit with [id number]-ik-yrkfym sequence COMPARISON: MR MR BRAIN WO/W from 12/04/2021 MR MR ANGIO BRAIN WO from 07/21/2022 FINDINGS: ANTERIOR CIRCULATION: The appearance of the previously described treated aneurysm off the superior as pect of the junction of the supraclinoid right ICA and right middle cerebral artery is unchanged from 07/21/2022. The right middle cerebral artery is patent distal to the procedure site. At the level of the anterior communicating artery there is a subtle suggestion of a small left of richard ter aneurysm measuring approximately 2 mm pointing posteriorly. This is at the limits of resolution. On the left side there is some flow signal seen in what may be a small aneurysm at the infundibulum o f a posterior communicating artery. POSTERIOR CIRCULATION: There is no significant narrowing nor dilatation of the basilar artery. Basilar artery is formed by contribution from both vertebral arteries skull base. Distally the basilar artery gives off patent b ilateral superior cerebellar arteries. Above this level it terminates as patent bilateral posterior cerebral arteries. There is no evidence of aneurysm of the tip of the basilar artery. IMPRESSION: 1. Stable appearance of the treated aneurysm on the right side at the junction of the right upper ICA and right middle cerebral artery. 2. Possible small aneurysm at the level of the anterior communicating artery. 3. Possible small aneurysm at the level of the infundibulum of left posterior communicating artery s ite. Recommend follow-up CT angiography. DATA REPOSITORY:
== END 2023-01-21 01:08 ==
LOC: DI 00:49
PROVIDERS: PCP Family Medicine; Visit Provider Occupational Therapist
DX: I67.1 Cerebral aneurysm, nonruptured (principal); Z98.890 Other specified postprocedural states; I77.89 Other specified disorders of arteries and arterioles
CPT/HCPCS: 70544

== ENCOUNTER → 2023-05-14 00:45 | Outpatient (CLI) | payer MEDICARE, MEDICAID, SELFPAY ==
--- NOTE | 2023-05-14 08:00 | DI.RAD_ITS ---
Exam(s) XR HIP RT COMPLETE AP PELVIS EXAM: XR HIP RT COMPLETE AP PELVIS CLINICAL HISTORY: hip pain right,S/P [place] 16 YEARS AGO,M25.551. TECHNIQUE: 2D digital imaging was performed. Three images were obtained. AP pelvis and AP and later al hip views were obtained. CR LUMBAR SPINE COMPLETE from 02/05/2016 CR LUMBAR SPINE AP, LAT from 04/22/[address] ABDOMEN PELVIS W from 08/04/2020 FINDINGS: BONES: There are stable post operative changes of a right total hip replacement present. No fracture or dislocation. JOINTS: The orthopedic hardware is in good position. No evidence of hardware loosening. SOFT TISSUE: There is again seen tubing in the right abdomen. IMPRESSION: Stable postoperative changes. DATA REPOSITORY: RADIATION DOSE DELIVERED:
== END ==
PROVIDERS: PCP Family Medicine; Visit Provider Family Medicine
DX: M25.551 Pain in right hip (principal); Z98.890 Other specified postprocedural states
CPT/HCPCS: 73502

== ENCOUNTER 2023-07-29 11:21 | Outpatient (CLI) | payer MEDICARE, MEDICAID, SELFPAY ==
[2023-07-29 12:17] LABS: Abs Immature Grans 0.05 10^3/uL (0.0-0.06); Absolute Basophil Count 0.05 10^3/uL (0.0-0.2); Absolute Eosinophil Count 0.05 10^3/uL (0.0-0.7); Absolute Lymphocyte Count 1.79 10^3/uL (1.2-3.4); Absolute Monocyte Count 0.69 10^3/uL (0.1-0.8); Absolute Neutrophil Count 4.53 10^3/uL (1.2-6.7); Basophils % 0.7; Eosinophils % 0.7; HCT 43.2 % (40.0-50.0); HGB 14.7 g/dL (13.5-17.5); Immature Grans % 0.7; MCH 33.1 pg (27.0-33.0); MCV 97 fL (80-95); MPV 9.4 fL (8.0-11.0); Monocytes % 9.6; Neutrophils % 63.3; Platelet Count 242 10^3/uL (130-400); RBC 4.44 10^6/uL (4.36-5.78); RDW 12.9 % (11.8-14.1); RDW-SD 46.1 fL; WBC 7.16 10^3/uL (4.4-10.8)
[2023-07-29 12:31] LABS: ALT 30 U/L (16-63); AST 15 U/L (15-37); Albumin 4.2 g/dL (3.4-5.0); Alkaline Phosphatase 89 U/L (46-116); Anion Gap 8.5 mmol/L (3-11); BUN 11 mg/dL (7-18); Bilirubin, Total 0.3 mg/dL (0.2-1.0); CO2 28.5 mmol/L (21.0-32.0); CREATININE 0.8 mg/dL (0.70-1.30); Calcium 9.4 mg/dL (8.5-10.1); Chloride 104 mmol/L (98-107); Estimated GFR 98.21 (mL/min/1.73m2); Glucose 74 mg/dL (74-106); Potassium 4.3 mmol/L (3.5-5.1); Sodium 141 mmol/L (136-145); Total Protein 8.1 g/dL (6.4-8.2)
== END 2023-07-29 11:22 | disposition home or self-care (01) ==
LOC: LOS 11:21
PROVIDERS: PCP Family Medicine; Referring Provider Family Medicine; Visit Provider Family Medicine
DX: R10.9 Unspecified abdominal pain (principal); D64.9 Anemia, unspecified
CPT/HCPCS: 36415; 80053; 85025

== ENCOUNTER → 2023-08-12 00:18 | Outpatient (CLI) | payer MEDICARE, MEDICAID, SELFPAY ==
--- NOTE | 2023-08-12 07:30 | DI.MRI_ITS ---
Exam(s) MR ANGIO BRAIN WO CLINICAL HISTORY: reassess brain circulation,s/p coiling of aneurysmcerebrovascular disease,. TECHNIQUE: Multiplanar multisequence MRA of the brain was performed. COMPARISON: MR MR ANGIO BRAIN WO from 01/21/2023 FINDINGS: Carotid Arteries: No aneurysm, occlusion or significant stenosis. There is again seen a round area of hypointense signal corresponding to a treated aneurysm at the junction of the internal carotid arter y and the right middle cerebral artery. There is flow seen adjacent to the aneurysm site but no flow is seen within the aneurysm. Anterior Cerebral Arteries: There is again seen a 2 mm focus of signal at the level of the anterior c ommunicating artery (series [id number], image 122). This is unchanged. Right: No aneurysm, occlusion or significant stenosis. Left: No aneurysm, occlusion or significant stenosis. Middle Cerebral Arteries: Right: No aneurysm, occlusion or significant stenosis. Left: No aneurysm, occlusion or significant stenosis. Posterior Cerebral Arteries: Right: No aneurysm, occlusion or significant stenosis. Left: No occlusion or significant stenosis. The area associated with the left PCOM is unchanged com pared to the prior examinations. Vertebral Arteries: Right: No aneurysm, occlusion or significant stenosis. Left: No aneurysm, occlusion or significant stenosis. Basilar Artery: No aneurysm, occlusion or significant stenosis. IMPRESSION: 1. Stable appearance of the treated right distal ICA aneurysm. 2. Stable appearance of the anterior communicating artery and left posterior communicating artery ane urysm. DATA REPOSITORY:
--- NOTE | 2023-08-12 10:27 | DI.RAD_ITS ---
Exam(s) XR SHOULDER RT COMPLETE 2+V EXAM: XR SHOULDER RT COMPLETE 2+V CLINICAL HISTORY: rt deltoid pain,rt shoulder pain,m25.511. TECHNIQUE: 2D digital imaging was performed of the right shoulder. Five images were obtained. AP, Grashey, Y-view and axillary views were obtained. COMPARISON: No exams were available for comparison FINDINGS: BONES: No acute fracture is present. No bony destructive lesion is seen. JOINTS: No dislocation present. There are degenerative changes seen at the glenohumeral and acromiocl avicular joints. SOFT TISSUE: The visualized lung hdz are clear. IMPRESSION: Degenerative changes of the right shoulder. DATA REPOSITORY: RADIATION DOSE DELIVERED:
== END ==
PROVIDERS: PCP Family Medicine; Visit Provider Family Medicine
DX: M25.511 Pain in right shoulder (principal); I47.10 Supraventricular tachycardia, unspecified; Z86.79 Personal history of other diseases of the circulatory system; Z95.828 Presence of other vascular implants and grafts; Z98.890 Other specified postprocedural states; I67.89 Other cerebrovascular disease
CPT/HCPCS: 70544; 73030

== ENCOUNTER → 2023-12-08 10:34 | Outpatient (CLI) | payer MEDICARE, MEDICAID, SELFPAY ==
--- NOTE | 2023-12-08 09:45 | DI.MRI_ITS ---
Exam(s) MR BRAIN WO/W EXAM: MR BRAIN WO/W CLINICAL HISTORY: R51.9 worsening headache; known ICA aneurysm I72.9 R42 DIZZINESS TECHNIQUE: Multiplanar multisequence MRI of the brain was performed. CONTRAST MATERIAL: IV Contrast: 14 mL of Dotarem contrast administered. COMPARISON: MR MR BRAIN WO/W from 12/04/2021 MR MR ANGIO BRAIN WO from 01/21/2023 MR MR ANGIO BRAIN WO from 08/12/2023 FINDINGS: The examination is limited due to patient motion artifact. VENTRICLES AND EXTRA AXIAL SPACES: Normal in size and morphology for the patient's age. HEMORRHAGE: None. CEREBRAL PARENCHYMA: No focus of restricted diffusion to suggest acute infarct. No space-occupying le meera identified. There again seen changes of a treat aneurysm at the junction of the right internal c arotid artery and the right middle cerebral artery. MIDLINE SHIFT: None. BRAINSTEM/CEREBELLUM: Normal. CALVARIUM: Normal. ENHANCEMENT: No suspicious enhancement identified. VISUALIZED PARANASAL SINUSES/MASTOIDS: Clear. [place]: Normal flow void. PITUITARY GLAND: Unremarkable. OTHER FINDINGS: IMPRESSION: 1. No acute territorial infarct. 2. Findings of a treated aneurysm at the right internal carotid artery and right middle cerebral faizan ry junction. DATA REPOSITORY:
[2023-12-08 14:47] LABS: CREATININE 0.8 mg/dL (0.70-1.30); Estimated GFR 98.21 (mL/min/1.73m2)
[2023-12-08] MEDS: Normal Saline Flush 10 ML SYR IVP (14:52)
[2023-12-08] MEDS: Gadoterate meglumine 20 ML SYRINGE 14 ML IVP (14:53)
== END ==
PROVIDERS: PCP Family Medicine; Visit Provider Family Medicine
DX: I72.0 Aneurysm of carotid artery (principal); R42 Dizziness and giddiness; R51.9 Headache, unspecified
CPT/HCPCS: 36415; 70553; 82565

== ENCOUNTER → 2023-12-09 10:14 | Outpatient (BNVA) | payer MEDICARE, MEDICAID, SELFPAY | PROVIDERS: PCP Family Medicine; Referring Provider Family Medicine; Visit Provider Student in an Organized Health Care Education/Training Program | DX: S46.011A Strain of muscle(s) and tendon(s) of the rotator cuff of right shoulder, initial encounter (principal); X58.XXXA Exposure to other specified factors, initial encounter | CPT/HCPCS: 99213 ==

== ENCOUNTER → 2023-12-28 02:03 | Outpatient (CLI) | payer MEDICARE, MEDICAID, SELFPAY ==
--- NOTE | 2023-12-28 11:15 | DI.MRI_ITS ---
Exam(s) MR UPPER JOINT RT WO EXAM: MR UPPER JOINT RT WO CLINICAL HISTORY: R SHOULDER PAIN,TRAUMATIC TEAR RT ROTATOR CUFF,S46.011A. TECHNIQUE: Multiplanar multisequence MRI was performed. COMPARISON: Plain films 12 August 2023 FINDINGS: BONES: There is no fracture or contusion pattern. JOINTS:The acromioclavicular joint shows inferior spurring. The glenohumeral joint shows a small geovanna unt of fluid. TENDONS: Supraspinatus: Abnormal thickening and high signal, consistent with significant tear. There may be a few intact fibers. Infraspinatus: Unremarkable. Subscapularis: Unremarkable. Teres Minor: Unremarkable. Biceps and Berino: Unremarkable. MUSCLES: Unremarkable. GLENOID LABRUM: Unremarkable on this noncontrast examination. SOFT TISSUES: Unremarkable. OTHER: Subacromial and subdeltoid bursae are show small amount of fluid. Small amount of fluid noted in the subcoracoid bursa. IMPRESSION: Significant tear of the supraspinatus tendon. There may be a few intact fibers. DATA REPOSITORY:
== END ==
PROVIDERS: PCP Family Medicine; Visit Provider Student in an Organized Health Care Education/Training Program
DX: S46.011A Strain of muscle(s) and tendon(s) of the rotator cuff of right shoulder, initial encounter (principal)
CPT/HCPCS: 73221

== ENCOUNTER → 2024-01-05 12:52 | Outpatient (BNVA) | payer MEDICARE, MEDICAID, SELFPAY | PROVIDERS: PCP Family Medicine; Referring Provider Family Medicine; Visit Provider Student in an Organized Health Care Education/Training Program | DX: S46.011D Strain of muscle(s) and tendon(s) of the rotator cuff of right shoulder, subsequent encounter (principal); X58.XXXD Exposure to other specified factors, subsequent encounter; M75.21 Bicipital tendinitis, right shoulder; M75.51 Bursitis of right shoulder | CPT/HCPCS: 20610; J1010 ==

== ENCOUNTER → 2024-01-28 13:36 | Outpatient (BNVA) | payer MEDICARE, MEDICAID, SELFPAY | PROVIDERS: PCP Family Medicine; Referring Provider Family Medicine; Visit Provider Psychiatry & Neurology Neurology | DX: R42 Dizziness and giddiness (principal); M96.1 Postlaminectomy syndrome, not elsewhere classified; H93.13 Tinnitus, bilateral; M47.816 Spondylosis without myelopathy or radiculopathy, lumbar region | CPT/HCPCS: 99215; G2212 ==

== ENCOUNTER → 2024-02-16 00:41 | Outpatient (CLI) | payer MEDICARE, MEDICAID, SELFPAY ==
--- NOTE | 2024-02-16 07:15 | DI.MRI_ITS ---
Exam(s) MR BRAIN WO/W EXAM: MR BRAIN WO/W CLINICAL HISTORY: ? LOW CSF,TINNITUS,H93.19 TECHNIQUE: Multiplanar multisequence MRI of the brain was performed. Both noninfused and contrast i nfused sequences were performed. IV Contrast injected was 14 cc Dotarem. COMPARISON: MR MR ANGIO BRAIN WO from 08/12/2023 MR MR BRAIN WO/W from 12/08/2023 FINDINGS: CEREBRAL PARENCHYMA: No evidence of intracranial hemorrhage, mass effect nor shift of midline structu re. No extraaxial fluid collections. Ventricles are not enlarged nor shifted. There is no significant focal signal abnormality in the cerebellar hemispheres nor within the edwin, m idbrain, and thalami. Right-side focus of signal abnormality is unchanged and consistent with apparent prior treatment of a neurysm at junction of right ICA and right MCA. No new areas of periventricular nor supra ventricular white matter signal abnormality. DWI: No areas of restricted diffusion to suggest acute ischemic event. SWI: Unchanged signal abnormality at prior interventional site described above. There are no ring enhancing lesions in the brain. There is no abnormal meningeal enhancement. PITUITARY GLAND: No mass nor parasellar abnormality. No obvious abnormality in the cavernous sinuses. FLOW VOIDS: There is a 7 x 6 mm flow void signal abnormality in the posterior right orbital cavity in timately associated with the intra cavernous right ICA at this level. Although this may just represe nt volume averaging with adjacent lateral aspect of the right sphenoid sinus, the possibly of an aneu rysm at the origin of the right ophthalmic artery off the intra cavernous ICA is a consideration, par ticularly in this patient who has already had prior documented intracranial aneurysm. PARANASAL SINUSES: The visualized paranasal sinuses appear unremarkable. ORBITS: Right-sided finding as above IMPRESSION: 1. Signal void evident in the posterior right orbital region. Although this may just represent volum e averaging with air within posterior right-sided ethmoidal air cells/sphenoid sinus, another possibi lity is that this may represent an aneurysm off the right intracavernous ICA at the level of the opht halmic artery. Recommend follow-up CT angiography or MR angiography. 2. Evidence of previously treated aneurysm at junction of right ICA and MCA again noted and appearing unchanged. 3. There are no ring enhancing lesions in the brain and there is no abnormal meningeal enhancement. DATA REPOSITORY:
--- NOTE | 2024-02-16 07:15 | DI.MRI_ITS ---
Exam(s) MR LUMBAR SPINE WO EXAM: MR LUMBAR SPINE WO CLINICAL HISTORY: low CSF/? CSF LEAK,POST LAMINECTOMY SYNDROME,SPONDYLOSIS,M47.816,M96.1. TECHNIQUE: Multiplanar multisequence MRI of the Lumbar spine was performed. COMPARISON: MR MRI - LUMBAR SPINE W/WO CONT from 12/31/[address] ABDOMEN PELVIS W from 08/04/2020 FINDINGS: Conus medullaris is at T12-L1 level. There is no evidence of conus mass nor subjacent clumping of in trathecal nerve roots to suggest arachnoiditis. The distal thecal sac appears unremarkable.There is no evidence of Tarlov intrasacral cysts nor other significant findings within the sacral canal Bones:Laminectomies again noted in the lower lumbar spine (see below). There is no hardware. There are no fractures nor ominous osseous lesions in the lumbar vertebral bodies and visualized sacrum. T here is fatty marrow replacement from mid L4 level down through the sacrum again noted, unchanged fro m MRI scan of 2017. With respect to the individual levels... T12-L1: Moderate disc space narrowing. Small Schmorl's node invagination in the inferior endplate of T12 again noted, also evident to 2017. There is no significant surrounding bone edema at this level . Posteriorly at this level there is a small posterolateral left disc protrusion in left lateral rec ess which extends posteriorly 4 mm and is approximately 9 mm wide. This was not evident in 2017. Th ere is no central canal stenosis. The disc protrusion extends slightly into the floor of the exiting left neural foramen but there is no foraminal stenosis on either side at this level. Facet joints a ppear unremarkable. L1-2: Normal disc height and signal. No disc herniation nor central canal stenosis.No foraminal steno sis no significant facet arthropathy. L2-3: This level exhibits some disc space narrowing posteriorly, similar to 2017. There is broad sym metrical posterior annular bulging which extends into the floor both exiting neural foramina, similar to previous. Does not result in foraminal stenosis on either side. Central canal dimensions are lo wer normal. There degenerative changes in the facet joints, more so on the left side, similar to pre vious. L3-4: This is 1 level above the fusion. Disc height and hydration signal is maintained. There is no disc herniation or central canal stenosis at this level.No foraminal stenosis.Some facet fusion is n oted L4-5: There is bony fusion across this disc space again noted. No remaining disc space. There is al so fusion of both facet joints. Removal of posterior osseous elements noted. There is no disc herni ation (indeed there is no disc material at this fused level), central canal dimensions are normal. T here is no significant foraminal stenosis on either side at this level. There is almost complete fus ion of the facet joints bilaterally at this level. L5-S1: This level again exhibits a small disc space with normal disc signal, this level stabilized by element of sacralization. There is no evidence of disc herniation at this level. Central canal dim ensions are normal. Also no significant foraminal stenosis at this level. Partial fusion of facets evident. Soft tissues: paraspinal soft tissues appear unremarkable.Symmetrical normal appearance of the psoas muscles evident. Defect in the right iliac bone is consistent with donor site. There is no evidenc e of abnormal fluid collection. IMPRESSION: 1. Compared to the prior MRI scan of 2017 there is again noted evidence of bony spinal fusion at L4-5 level with no evidence of abnormal epidural nor paraspinal collection and no evidence of discitis/os teomyelitis. 2. No evidence of new listhesis, central spinal canal stenosis, nor significant foraminal stenosis. 3. At the T12-L1 level there is a posterolateral left disc protrusion now evident which extends poste riorly 4 mm and is 9 mm wide and was not evident in 2017. This is in the left lateral recess and ext ends slightly into the floor of the exiting left neural foramen but without evidence of foraminal veronica nosis. DATA REPOSITORY:
[2024-02-16] MEDS: Normal Saline Flush 10 ML SYR IVP (10:37)
[2024-02-16] MEDS: Gadoterate meglumine 20 ML SYRINGE 14 ML IVP (10:38)
== END ==
PROVIDERS: PCP Family Medicine; Visit Provider Psychiatry & Neurology Neurology
DX: M96.1 Postlaminectomy syndrome, not elsewhere classified; M47.816 Spondylosis without myelopathy or radiculopathy, lumbar region; Z98.1 Arthrodesis status; M51.24 Other intervertebral disc displacement, thoracic region; H93.13 Tinnitus, bilateral
CPT/HCPCS: 70553; 72148

== ENCOUNTER 2024-03-08 01:23 | Outpatient (CLI) | payer MEDICARE, MEDICAID, SELFPAY ==
--- NOTE | 2024-03-08 07:15 | DI.MRI_ITS ---
Exam(s) MR ANGIO BRAIN WO EXAM: MR ANGIO BRAIN WO CLINICAL HISTORY: ? new aneurysm R ICA intracavernous,F/U MRI 02/16/24,i72.0 TECHNIQUE: Performed on 1.5 angelique unit with [id number] sequence . 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 There is no other aneurysm evident, including the intra cavernous right ICA which was area of described concer n on recent conventional MRI. Both internal carotid arteries are patent in the skull base and caroti d canals as well as within the cavernous sinuses. Supraclinoid aspects are patent. Both A1 segments are patent as are the anterior cerebral arteries and there is no aneurysm evident at the level of th e anterior communicating artery. Both middle cerebral arteries are patent and without aneurysms. Posterior circulation reveals the basilar artery formed by both vertebral arteries at the skull base. Basilar artery is patent without significant stenosis and without evidence of basilar artery tip an eurysm. Superior cerebellar arteries are patent as are both superior cerebellar arteries. IMPRESSION: 1. No evidence of aneurysm at the level the intracavernous ICAs and anterior communicating artery. A lso no evidence of aneurysms in the posterior circulation. 2. The previously coiled right A1 segment aneurysm site appears stable. DATA REPOSITORY:
== END 2024-03-08 01:43 ==
LOC: DI 01:24
PROVIDERS: PCP Family Medicine; Visit Provider Psychiatry & Neurology Neurology
DX: I72.0 Aneurysm of carotid artery (principal)
CPT/HCPCS: 70544

== ENCOUNTER → 2024-03-09 10:16 | Outpatient (BNVA) | payer MEDICARE, MEDICAID, SELFPAY | PROVIDERS: PCP Family Medicine; Referring Provider Family Medicine; Visit Provider Psychiatry & Neurology Neurology | DX: H93.13 Tinnitus, bilateral (principal); I72.3 Aneurysm of iliac artery | CPT/HCPCS: 99213 ==

== ENCOUNTER 2024-03-21 01:01 | Outpatient (CLI) | payer MEDICARE, MEDICAID, SELFPAY ==
--- NOTE | 2024-03-21 07:15 | DI.CTLCSR_ITS ---
Exam(s) CT CHEST LUNG CANCER SCREEN EXAM: CT CHEST LUNG CANCER SCREEN CLINICAL HISTORY: Screening for lung cancer,current smoker, f17.210 TECHNIQUE: Imaging Protocol: Axial computed tomography images with coronal and sagittal reformatted images were created and reviewed. Low dose screening protocol. COMPARISON: CT CT CHEST LUNG CANCER SCREEN from 12/04/2021 FINDINGS: Tracheobronchial tree: No bronchiectasis or mucus plugging. Mediastinum and Latricia: No dominant adenopathy or fluid collection. Pulmonary parenchyma: No consolidation or dominant measurable mass. Moderate emphysematous changes in the upper lobes. Lung Nodules: None. Pleura: No effusion. No pneumothorax. Heart: The heart is not dilated. Minimal coronary artery calcifications are seen. Aorta: Thoracic aorta non-dilated. Upper abdomen: Gallstones versus sludge. Bones: Stable midthoracic compression fractures. Soft Tissues: Unremarkable. IMPRESSION: No suspicious pulmonary nodules. Lung RADS Cat 1 - Negative: No nodules and definitely benign nodules Lung-RADS 1.0 CATEGORIES: Category 0 - Prior chest CT exam(s) being located for comparison. Category 1 - Annual screening in 12 months. No nodules or definitely benign nodules. Category 2 - Annual screening in 12 months. Benign appearance. Nodules with low likelihood of becomin g active cancer. Category 3 - 6-month follow-up. Probably benign. Short-term follow-up suggested. Nodules with low lik elihood of becoming active cancer. Category 4A - 3-month follow-up and CT/PET if >8 mm in size. Suspicious finding. Findings which requi re additional testing. Category 4B - Findings which require additional testing and tissue sampling. Category 4X - Category 3 or 4 nodules with additional features or imaging findings that increases the suspicion of malignancy. Modifier S- Potentially clinically significant findings (non lung cancer) RADIATION DOSE DELIVERED: !Error Total DLP DATA REPOSITORY: All CT scans at this facility are submitted to the National Radiology Data Registry (NRDR) Dose Index Registry (DIR) with the [employer] ([employer]). RADIATION OPTIMIZATION: All CT scans at this facility use at least one of these dose optimization te chniques: automated exposure control; mA and/or kV adjustment per patient size (includes targeted exa ms where dose is matched to clinical indication); or iterative reconstruction.
--- NOTE | 2024-03-21 07:15 | DI.US_ITS ---
Exam(s) US AAA DIAGNOSTIC EXAM: US AAA DIAGNOSTIC CLINICAL HISTORY: 2.5 cm Abd. aorta on imaging from 2020,f/u aaa,z87.891 COMPARISON: No exams were available for comparison FINDINGS: Abdominal Aorta: Proximal: 2.6 cm Mid: 2.1 x 2.4 cm Distal: 2.6 cm Iliacs: Right: 1.2 cm Left: 1.3 cm IMPRESSION: No evidence of abdominal aortic aneurysm. DATA REPOSITORY:
== END 2024-03-21 01:21 ==
LOC: DI 01:01
PROVIDERS: PCP Family Medicine; Visit Provider Family Medicine
DX: F17.210 Nicotine dependence, cigarettes, uncomplicated; Z12.2 Encounter for screening for malignant neoplasm of respiratory organs; Z13.6 Encounter for screening for cardiovascular disorders
CPT/HCPCS: 71271; 76775

== ENCOUNTER → 2024-03-22 09:59 | Outpatient (BNVA) | payer MEDICARE, MEDICAID, SELFPAY | PROVIDERS: PCP Family Medicine; Visit Provider Student in an Organized Health Care Education/Training Program | DX: M75.21 Bicipital tendinitis, right shoulder (principal); M75.51 Bursitis of right shoulder; S46.011D Strain of muscle(s) and tendon(s) of the rotator cuff of right shoulder, subsequent encounter; X58.XXXD Exposure to other specified factors, subsequent encounter | CPT/HCPCS: 99213 ==

== ENCOUNTER 2024-04-20 05:08 | Outpatient (CLI) | payer MEDICARE, MEDICAID, SELFPAY ==
[2024-04-20 22:41] LABS: PSA, Screening 0.5 ng/mL (<=4.5)
[2024-04-20 23:11] LABS: Hepatitis C Ab w Rflx HCV PCR Reactive (Negative)
[2024-04-22 12:36] LABS: HCV RNA Qualitative Undetected (Undetected)
== END 2024-04-20 05:09 | disposition home or self-care (01) ==
LOC: LBO 05:09
PROVIDERS: PCP Family Medicine; Visit Provider Family Medicine
DX: Z11.59 Encounter for screening for other viral diseases (principal); Z12.5 Encounter for screening for malignant neoplasm of prostate
CPT/HCPCS: 36415; 84153; 86803; 87522